=== PATIENT | male | born 1940 | race Caucasian/White ===

== ENCOUNTER 2020-04-21 20:29 | Emergency (ER) | payer MEDICARE ==
[~2020-04-21] VITALS: Ht 177.8 cm; Wt 93.9 kg
--- OUTSIDE RECORDS SUMMARY | ~2020-04-21 | XMS | Encounter Summary ---
Demographics + + + | Address | [address] | | | [place] [address] | + + + | Home Phone | | + + + | Preferred Language | Unknown | + + + | Marital Status | | + + + | Caodaism Affiliation | Unknown | + + + | Race | White | + + + | Ethnic Group | Not or | + + + Author + + + | Author | [facility] | | | and [place] | + + + | Organization | [facility] | | | and [place] | + + + | Address | Unknown | + + + | Phone | Unavailable | + + + Support +---------+ +---------+ + | Name | Relationship | Address | Phone | +---------+ +---------+ + | S Young | ECON | Unknown | | +---------+ +---------+ + Care Team Providers + +------+ + | Care Corn Breeder Name | Role | Phone | + +------+ + | Harley Caro MD | PCP | | + +------+ + Reason for Referral Diagnostic/Screening (Routine) + +--------+ + + + + | Status | Reason | Specialty | Diagnoses / | Referred By | Referred To | | | | | Procedures | Contact | Contact | + +--------+ + + + + | Authorizatio | | Radiology | Diagnoses | [place], | [facility] | | n not | | | Status post | Pal Velazquez, | [address] | | Required | | | aortic | MD [address] | | | | | valve | [address] | [place] | | | | | replacement | [place] | [address] | | | | | with | [place] | Phone: | | | | | bioprostheti | [address] | [phone] | | | | | c valve | Phone: | Fax: | | | | | Ascending | [phone] | [phone] | | | | | aorta | Fax: | | | | | | dilatation | [phone] | | | | | | (FORM[facility]LY [facility]) | | | | | | | Procedures | | | | | | | ECHO | | | | | | | Complete | | | + +--------+ + + + + Diagnostic/Screening (Routine) +--------+--------+ + + + + | Status | Reason | Specialty | Diagnoses / | Referred By | Referred To | | | | | Procedures | Contact | Contact | +--------+--------+ + + + + | Closed | | Radiology | Diagnoses | [place], | | | | | | History of | Pal Velazquez, | | | | | | left common | MD [address] | | | | | | carotid | [address] | | | | | | artery stent | [address] [address] | | | | | | placement | [place] | | | | | | Occlusion of | [id number] | | | | | | right | Phone: | | | | | | carotid | [phone] | | | | | | artery Hx | Fax: | | | | | | of stroke | [phone] | | | | | | without | | | | | | | residual | | | | | | | deficits | | | | | | | Procedures | | | | | | | VAS Carotid | | | | | | | Duplex | | | | | | | Bilateral | | | +--------+--------+ + + + + Reason for Visit + + + | Reason | Comments | + + + | Follow-up | 6 months | + + + Encounter Details +--------+---------+ + + + | Date | Type | Department | Care Team | Description | +--------+---------+ + + + | 07/15/ | Office | [facility] | Pal Vera, | Coronary artery | | 2019 | Visit | CARDIOLOGY [place] | MD [address]ina [address] | disease involving | | | | [address] | [place], | nikolski coronary | | | | [address] | [place] [address] | artery of nikolski | | | | [place], [place] | [phone] | heart without angina | | | | [address] | | pectoris (Primary | | | | [phone] | | Dx); S/P CABG x 1; | | | | | | History of left | | | | | | common carotid | | | | | | artery stent | | | | | | placement; Occlusion | | | | | | of right carotid | | | | | | artery; Hx of stroke | | | | | | without residual | | | | | | deficits; Status | | | | | | post aortic valve | | | | | | replacement with | | | | | | bioprosthetic valve; | | | | | | History of PSVT | | | | | | (paroxysmal | | | | | | supraventricular | | | | | | tachycardia); | | | | | | Chronic obstructive | | | | | | pulmonary disease, | | | | | | unspecified COPD | | | | | | type ([facility]); | | | | | | Ascending aorta | | | | | | dilatation ([facility]); | | | | | | Bilateral leg edema; | | | | | | Type 2 DM with CKD | | | | | | stage 3 and | | | | | | hypertension (HCC); | | | | | | Mixed hyperlipidemia | +--------+---------+ + + + Social History + +-------+ +--------+------+ | Tobacco Use | Types | Packs/Day | Years | Date | | | | | Used | | + +-------+ +--------+------+ | Former Smoker | | 1 | | | + +-------+ +--------+------+ + + + | Sex Assigned at | Date Recorded | | | | + + + | Not on file | | + + + documented as of this encounter Last Filed Vital Signs + + + + + | Vital Sign | Reading | Time Taken | Comments | + + + + + | Blood Pressure | 120/68 | 07/15/2019 2:21 PM | | | | | PST | | + + + + + | Pulse | 77 | 07/15/2019 2:21 PM | | | | | PST | | + + + + + | Temperature | - | - | | + + + + + | Respiratory Rate | - | - | | + + + + + | Oxygen Saturation | 92% | 07/15/2019 2:21 PM | | | | | PST | | + + + + + | Inhaled Oxygen | - | - | | | Concentration | | | | + + + + + | Weight | 91.8 kg (202 lb 4.8 | 07/15/2019 2:21 PM | | | | oz) | PST | | + + + + + | Height | 180.3 cm (5' 11") | 07/15/2019 2:21 PM | | | | | PST | | + + + + + | Body Mass Index | 28.22 | 07/15/2019 2:21 PM | | | | | PST | | + + + + + documented in this encounter Progress Notes Pal Vera MD - 07/15/2019 2:30 PM PSTFormatting of this note might be different fro m the original. Subjective: Patient ID: Navdeep Chávez is a 78 y.o. male. Patient's medications, allergies, past medical, surgical, social and family histories were obtained and reviewed as appropriate. HPI Mr. Chávez came to the office today for a cardiology follow-up visit for his CAD, chronic co mbined systolic/diastolic heart failure, dilated cardiomyopathy, PSVT, bioprosthetic aortic valve, and carotid artery disease. I have not seen him since my initial evaluation with him when he became a patient of our practice on 12/19/2016, but he has been following with MOMO Lance, regularly since then. Interim records were reviewed in detail. Every 2-3 months, he has a sharp left-sided anterior precordial pain, usually at rest, lasting onl y a few seconds. He has not had any for over 2 months, and it is unlikely that this atypica l chest pain is due to angina pectoris. He has had intermittent pedal edema following increased sodium intake, and is wearing compr ession stockings "once in a while", now wearing diabetic socks. He has BALDWIN, NYHA class 1-2, can drag michael of hay around for 5-10 minutes. He has no ortho pnea, PND, and no significant nocturia. He has been taking his Lasix at 6AM and then trying to go back to bed for another 2 hours, but has to get up every 45 min. I told him to wait until 8AM to take it. He is stressed, taking care of his at home, who has Alzheimer's dementia. He has an outpatient sleep evaluation with a wristwatch pulse ox, was told he needed O2, bu t felt they were quite rude and did not make another appointment. He declined another refer ral elsewhere, stating that he did not want to leave his overnight. For a For the ritika e reason, he declined a referral for a pulmonary evaluation in [place], even though PFTs in October, showed severe obstructive and restrictive lung disease. He has [facility] Overall, however, he appears to be relative ly stable, despite his multiple cardiovascular and pulmonary problems. His BP is well contr olled. No changes were made in his medications. I will see him back in 6 months, after an updated carotid ultrasound and echocardiographic evaluations ROS CONSTITUTIONAL: 10 lb weight increase in the last year (his stopped cooking, eats fast foods), denies recent fever, but had shaking chills, muscle twitching yesterday, denies nig ht sweats, c/o significant fatigue NEUROLOGIC: He has a history of a ? CVA (04/2012) - he denies this, but had dizziness, jeffery es any h/o a TIA, migraines, seizures. He had a single Syncopal event in 11/13 due to PSVT w ith hypotension. He has mild numbness of his hands, no paresthesias, has orthostatic dizzine ss, lightheadedness. He denies any memory problems. EYES: No amaurosis, diplopia, recent visual changes, has early stage cataracts, no macular degeneration or glaucoma, ? Left central retinal thrombosis, had intermittent complete left vision loss, resolved off aspirin, on Plavix ENT: bilateral hearing loss, L>R, no tinnitus, epistaxis, dysphagia ENDOCRINE: Type II Diabetes diagnosed 2017. He has a history of Thyroid Nodules, no other e ndocrine problems. No excessive hunger, thirst. PULMONARY/SLEEP: He developed Dyspnea on exertion in 2015, denies orthopnea, paroxysmal noc turnal dyspnea. He has a h/o COPD/Emphysema. He denies asthma, pneumonia. He had a left Pneu mothorax associated with syncope and fractures of the left first through eighth ribs 04/2013 , associated with PSVT and hypotension. His has told him of snoring, has mild daytime s omnolence. Sleep is not refreshing (due to nocturia). -- PFT (10/17/17 - [facility]): severe obstruction, severe diffusion defect, moderate restriction CARDIOVASCULAR: He had left mid-axillary chest pain yesterday for about 30 minutes, pressur e or discomfort. 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 No palpitations. He has a history of a heart murmur, had severe noted in 2011, underwent a bioprosthetic Magna AVR with his CABG 02/2013. He denies any h/o rheum atic fever. He has a history of Essential Hypertension, Hyperlipidemia. He has a h/o Carotid Stenosis, chronic JAYCEE occlusion, Left Carotid Stent. He has Pedal Edema, no claudication s ymptoms. -- Echo (10/30/18 - [facility]): Ef 55-60%, moderate eccentric LVH, mild RVE with normal systolic f unction, normal bioprosthetic AVR function, ascending aorta 4.0 cm -- Carotid U/S (11/08/18 - [facility]): known chronic occlusion of the JAYECE, patent stent in the LIC A -- Echo (10/26/17 - [facility]): EF 55-60%, moderate eccentric LVH, normal RV size, function, monik l bioprosthetic AVR function, ascending aorta 4.1 cm -- Echo (11/03/16 - [facility]): EF > 70%, grade 1 diastolic dysfunction, mild RVE, RVH, normal RV s ystolic function. Mild bioprosthetic , trace TR, mildly dilated ascending aorta, 4.2 cm -- Lipid Panel (01/01/18 - on atorvastatin 40 mg): TC-111, PL-30, HDL-31, TG-249 GASTROINTESTINAL: No recent abdominal pain, nausea, vomiting or diarrhea. He c/o frequent e xcessive abdominal gas. Denies PUD, melena, hematochezia, hepatitis. Diverticulosis noted on CT scan. RENAL/: BPH with Urinary Retention since 2012, possible bladder mass. Nocturia (5-6 times per night, previously was every 45 minutes), Stage III chronic kidney disease (GFR 52 and 2 013), with acute kidney injury 12/2016. No dysuria, hematuria, urinary urgency, hesitancy. N ephrolithiasis noted on CT scan, he passed on in the . HEMATOLOGY/ONCOLOGY: No h/o bleeding disorders, DVT, PE. He notes easy bruisability over th e last year, without excessive bleeding. No history of anemia, transfusions. No history of c ancer. MUSCULOSKELETAL: No myalgias, has Osteoarthritis of the spine noted on CT scan, arthralgias .of the hands. No history of rheumatologic or autoimmune diseases. CUTANEOUS: He has an intermittent back rash with pruritus, no other skin lesions. PSYCHIATRIC: No history of depression, but notes Anxiety, denies any other psychiatric prob lems. Past Medical History: Diagnosis Date Aortic stenosis, severe Arrhythmia 04/2013 PSVT, with WCT, syncope, s/p RF Ablation (AVNRT) - Christiano Valentine MD Carotid artery occlusion 04/05/2012 LICA Stent (10x40 Precise Nitinol stent - [facility]) CHF (congestive heart failure) (HCC) chronic combined systolic / diastolic heart failure Chronic kidney disease Stage III (GFR 52 and 2012), now with acute kidney injury COPD (chronic obstructive pulmonary disease) ([facility]) Emphysema Coronary artery disease Diabetes mellitus, type 2 ([facility]) Dilated cardiomyopathy ([facility]) 2012 EF 30% Heart murmur Hyperlipidemia Hypertension Joint pain Prostate enlargement S/P aortic valve replacement with bioprosthetic valve 02/20/2013 25 Maggie (s# [id number]), Cristino Green MD - [facility], [place] S/P CABG x 1 02/20/2013 SVG > RCA, Cristino Green MD - [facility], [place] Stroke ([facility]) 2011 he denies this, had dizziness prior to left carotid stent Syncope and collapse 04/2013 with SVT Type 2 DM with CKD stage 3 and hypertension ([facility]) 11/18/2018 Past Surgical History: Procedure Laterality Date AORTIC VALVE REPLACEMENT 02/20/2013 25 Maggie (s# [id number]), Cristino Green MD - [facility], [place] CARDIAC CATHERIZATION COLONOSCOPY CORONARY ARTERY BYPASS GRAFT 02/20/2013 SVG>RCA; Cristino Green MD - [facility], [place] HERNIA REPAIR Right 07/2009 [facility] OTHER SURGICAL HISTORY Left 04/05/2012 CAROTID STENT - 10x40 Precise Nitinol stent LICA OTHER SURGICAL HISTORY NASAL POLYP EXCISION PROSTATECTOMY 02/2017 TONSILLECTOMY AND ADENOIDECTOMY 1950 Family History Problem Relation Age of Onset Other (see comment) Mother Bowel Disease Stroke Mother 96 Alcohol abuse Father Social History Socioeconomic History Marital status: Unknown Spouse name: Not on file Number of children: Not on file Years of education: Not on file Highest education level: Not on file Occupational History Not on file Social Needs Financial resource strain: Not on file Food insecurity: Worry: Not on file Inability: Not on file Transportation needs: Medical: Not on file Non-medical: Not on file Tobacco Use Smoking status: Former Smoker Packs/day: 1.00 Substance and Sexual Activity Alcohol use: Not on file Drug use: Not on file Comment: Drug use: No Sexual activity: Not on file Lifestyle Physical activity: Days per week: Not on file Minutes per session: Not on file Stress: Not on file Relationships Social connections: Talks on phone: Not on file Gets together: Not on file Attends adventism service: Not on file Active member of club or organization: Not on file Attends meetings of clubs or organizations: Not on file Relationship status: Not on file Intimate partner violence: Fear of current or ex partner: Not on file Emotionally abused: Not on file Physically abused: Not on file Forced sexual activity: Not on file Other Topics Concern Not on file Social History Narrative Not on file Allergies Allergen Reactions Bactrim (Sulfamethoxazole-Trimethoprim) Other (See Comments) Kidney Failure Moxifloxacin Rash Rash Intolerance No active intolerances/contraindications Current Outpatient Medications Medication Sig Dispense Refill albuterol-ipratropium (COMBIVENT RESPIMAT) 100-20 mcg/puff inhaler Inhale 1 puff into t he lungs every 4 (four) hours as needed for Wheezing. ALPRAZolam (XANAX) 0.5 mg tablet Take 0.5 mg by mouth 3 times daily as needed for Anxie ty. atorvaSTATin (LIPITOR) 40 mg tablet Take 40 mg by mouth nightly. clopidogrel (PLAVIX) 75 mg tablet Take 75 mg by mouth daily. Cyanocobalamin (VITAMIN B12) [address] 1 tablet under the tongue daily. Fish Oil 1000 MG delayed release capsule Take 2 g by mouth daily. losartan (COZAAR) 25 mg tablet Take 25 mg by mouth Daily. metFORMIN (GLUCOPHAGE) 500 mg tablet Take 500 mg by mouth 2 (two) times daily with meal s. Multiple Vitamin (MULTI-VITAMIN DAILY PO) Take by mouth. Multiple Vitamins-Minerals (MENS MULTI VITAMIN & MINERAL PO) Take by mouth. potassium chloride (KLOR-CON) 10 MEQ ER tablet Take 20 mEq by mouth daily. Indications: Low Amount of Potassium in the Blood torsemide (DEMADEX) 20 mg tablet Take 40 mg by mouth daily. No current facility-administered medications for this visit. Objective: BP 120/68 | Pulse 77 | Ht 1.803 m (5' 11") | Wt 91.8 kg (202 lb 4.8 oz) | SpO2 92% | B CO 28.22 kg/m PHYSICAL EXAM GENERAL: Well developed, well nourished, in no distress. Appears approximately stated age. HEENT: Normocephalic, atraumatic. EYES: PERRL, sclerae anicteric, no xanthelsasmas MOUTH: Oral mucosae moist, dentition adequate, no lesions noted NECK: No JVD, lymphadenopathy, thyromegaly, bruits. Carotid pulses are 2+ bilaterally LUNGS: Diffusely coarse sounds bilaterally, with no rales, rhonchi or wheezing noted, respi rations unlabored HEART: Well-healed sternotomy incision. Nondisplaced PMI, regular rate and rhythm, S1, S2 n ormal. No murmurs, rubs or gallops noted. ABDOMEN: Soft, nontender, no organomegaly, masses or bruits. Bowel sounds are normal in all 4 quadrants. The abdominal aortic pulsation is not palpable. EXTREMITIES: No edema. Radial pulses 2+ bilaterally. Femoral pulses are 2+ bilaterally with out bruits. DP and PT pulses are 2+ bilaterally. SKIN: Warm and dry, capillary refill is normal, no lesions. NEUROLOGIC: Awake, alert and oriented x 3. No focal motor deficits. 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 Diagnoses and all orders for this visit: Coronary artery disease involving nikolski coronary artery of nikolski heart without angina pec toris - ECG 12 lead S/P CABG x 1 History of left common carotid artery stent placement - VAS Carotid Duplex Bilateral; Future Occlusion of right carotid artery - VAS Carotid Duplex Bilateral; Future Hx of stroke without residual deficits - VAS Carotid Duplex Bilateral; Future Status post aortic valve replacement with bioprosthetic valve - ECHO Complete; Future History of PSVT (paroxysmal supraventricular tachycardia) Chronic obstructive pulmonary disease, unspecified COPD type (HCC) Ascending aorta dilatation (HCC) - ECHO Complete; Future Bilateral leg edema Type 2 DM with CKD stage 3 and hypertension (HCC) Mixed hyperlipidemia Plan: follow up in 6 months, after the above tests documented in this en counter Plan of Treatment +--------+---------+ + + + | Date | Type | Specialty | Care Team | Description | +--------+---------+ + + + | 04/27/ | Office | Cardiology | Pal Vera, | | | 2019 | Visit | | [address] | | | | | | [place], | | | | | | [place] [address] | | | | | | [phone] | | | | | | | | +--------+---------+ + + + + + +--------+ + + | Name | Type | Priori | Associated Diagnoses | Order Schedule | | | | ty | | | + + +--------+ + + | VAS Carotid Duplex | Imaging | Routin | History of left | Expected: | | Bilateral | | e | common carotid | 01/13/2020, Expires: | | | | | artery stent | 07/15/2020 | | | | | placement Occlusion | | | | | | of right carotid | | | | | | artery Hx of stroke | | | | | | without residual | | | | | | deficits | | + + +--------+ + + | ECHO Complete | Echocardiog | Routin | Status post aortic | Expected: | | | franco | e | valve replacement | 01/13/2020, Expires: | | | | | with bioprosthetic | 07/15/2020 | | | | | valve Ascending | | | | | | aorta dilatation | | | | | | (HCC) | | + + +--------+ + + documented as of this encounter Procedures + +--------+ + + + | Procedure Name | Priori | Date/Time | Associated Diagnosis | Comments | | | ty | | | | + +--------+ + + + | ECG 12 LEAD | Routin | 07/15/2019 | Coronary artery | Results for this | | | e | 2:32 PM | disease involving | procedure are in the | | | | PST | nikolski coronary | results section. | | | | | artery of nikolski | | | | | | heart without angina | | | | | | pectoris | | + +--------+ + + + documented in this encounter Results ECG 12 lead (07/15/2019 2:32 PM PST) + + + + + + | Component | Value | Ref Range | Performed | Pathologist | | | | | At | Signature | + + + + + + | VENTRICULAR | 75 | BPM | [facility] | | | RATE EKG | | | | | + + + + + + | ATRIAL RATE | 75 | BPM | [facility] | | + + + + + + | P-R | 222 | ms | [facility] | | | INTERVAL | | | | | + + + + + + | QRS | 170 | ms | [facility] | | | DURATION | | | | | + + + + + + | Q-T | 428 | ms | [facility] | | | INTERVAL | | | | | + + + + + + | Q-T | 477 | ms | [facility] | | | INTERVAL | | | | | | (CORRECTED) | | | | | + + + + + + | P WAVE AXIS | 39 | degrees | [facility] | | + + + + + + | QRS AXIS | -93 | degrees | [facility] | | + + + + + + | T AXIS | 67 | degrees | [facility] | | + + + + + + | INTERPRETAT | Sinus rhythm with 1st | | [facility] | | | ION TEXT | degree A-V blockRight | | | | | | bundle branch | | | | | | blockAbnormal ECGWhen | | | | | | compared with ECG of | | | | | | 17-DEC-2017 | | | | | | 11:19,Previous ECG has | | | | | | undetermined rhythm, | | | | | | needs reviewPlease refer | | | | | | to Providers office | | | | | | visit note for Providers | | | | | | | | | | | | Interpretation.Confirmed | | | | | | by [facility] Brooks Read Only, | | | | | | ICA Magdi ([id number]), | | | | | | magazine editor Javon Villanueva | | | | | | ([id number]) on 07/16/2019 | | | | | | 7:52:30 AM | | | | + + + + + + + + | Specimen | + + | | + + + + + | Narrative | Performed At | + + + | | | + + + + +---------+ + + | Performing | Address | City/State/Zipcode | Phone Number | | Organization | | | | + +---------+ + + | [facility] | | | | + +---------+ + + documented in this encounter Visit Diagnoses + + | Diagnosis | + + | Coronary artery disease involving nikolski coronary artery of nikolski heart without | | angina pectoris - Primary | + + | S/P CABG x 1 Postsurgical aortocoronary bypass status | + + | History of left common carotid artery stent placement | + + | Occlusion of right carotid artery Occlusion and stenosis of carotid artery without | | mention of cerebral infarction | + + | Hx of stroke without residual deficits Transient ischemic attack (TIA), and cerebral | | infarction without residual deficits | + + | Status post aortic valve replacement with bioprosthetic valve Heart valve replaced by | | other means | + + | History of PSVT (paroxysmal supraventricular tachycardia) Personal history of other | | diseases of circulatory system | + + | Chronic obstructive pulmonary disease, unspecified COPD type (HCC) | + + | Ascending aorta dilatation (HCC) Thoracic aortic ectasia | + + | Bilateral leg edema Edema | + + | Type 2 DM with CKD stage 3 and hypertension (HCC) | + + | Mixed hyperlipidemia | + + documented in this encounter
--- OUTSIDE RECORDS SUMMARY | ~2020-04-21 | XMS | Clinical Summary ---
Demographics + + + | Address | [address] | | | [place] [address] | + + + | Home Phone | | + + + | Preferred Language | Unknown | + + + | Marital Status | | + + + | Mormonism Affiliation | PRO | + + + | Race | White | + + + | Ethnic Group | Not or | + + + Author + + + | Author | [facility] | + + + | Organization | [facility] | + + + | Address | Unknown | + + + | Phone | Unavailable | + + + Support + + + + + | Name | Relationship | Address | Phone | + + + + + | Allyssa Chávez | ECON | [address] | | | | | [place] | | | | | [phone] | | + + + + + Care Team Providers + +------+ + | Care Biological Science Technician Fish Name | Role | Phone | + +------+ + | No Pcp Per Patient | PCP | Unavailable | + +------+ + Source Comments ABDELRAHMAN is fully live on both [facility] and [facility] Allergies + + + + + + | Active Allergy | Reactions | Severity | Noted | Comments | | | | | Date | | + + + + + + | Moxifloxacin | | | 04/04/20 | [facility] | | | | | 12 | records | + + + + + + | Sulfamethoxazole-Tri | | | 04/04/20 | [facility] | | methoprim | | | 12 | records | + + + + + + Medications + + + +---------+------+------+-------+ | Medication | Sig | Dispensed | Refills | Star | End | Statu | | | | | | t | Date | s | | | | | | Date | | | + + + +---------+------+------+-------+ | aspirin 325 mg | Take 1 Tab by mouth | 30 Tab | 0 | 08/0 | | Activ | | Oral | once daily. | | | 6/20 | | e | | TabletIndications: | Indications: After | | | 12 | | | | After 30 days, | 30 days, should | | | | | | | should continue 81mg | continue 81mg ASA | | | | | | | ASA indefinitely | indefinitely | | | | | | + + + +---------+------+------+-------+ | clopidogrel 75 mg | Take 1 Tab by mouth | 30 Tab | 0 | 08/0 | | Activ | | Oral Tablet | once daily. | | | 6/20 | | e | | | | | | 12 | | | + + + +---------+------+------+-------+ | simvastatin 20 mg | Take 1 Tab by mouth | 30 Tab | 0 | 08/0 | | Activ | | Oral Tablet | once daily in the | | | 6/20 | | e | | | evening. | | | 12 | | | + + + +---------+------+------+-------+ | tamsulosin 0.4 mg | Take 1 Cap by mouth | 30 Cap | 0 | 08/0 | | Activ | | Oral Capsule, Ext | once daily at | | | 6/20 | | e | | Release 24 hr | bedtime. | | | 12 | | | + + + +---------+------+------+-------+ | aspirin chewable | Take 1 Tab by mouth | 100 Tab | 0 | 09/0 | | Activ | | 81 mg Oral Tablet, | once daily. | | | 6/20 | | e | | Chewable | | | | 12 | | | + + + +---------+------+------+-------+ Active Problems + + + | Problem | Noted Date | + + + | Carotid stenosis | 04/04/2012 | + + + | CAD (coronary artery disease) | 04/04/2012 | + + + | Hyperlipidemia | 04/04/2012 | + + + | BPH (benign prostatic hyperplasia) | 04/04/2012 | + + + | NSTEMI (non-ST elevated myocardial infarction) | 04/04/2012 | + + + | Aortic stenosis | 04/04/2012 | + + + Social History + + + +--------+ + | Tobacco Use | Types | Packs/Day | Years | Date | | | | | Used | | + + + +--------+ + | Former Smoker | Cigarettes | 0.5 | 20 | Quit: 04/04/2012 | + + + +--------+ + + +---+---+---+ | Smokeless Tobacco: | | | | | Never Used | | | | + +---+---+---+ + + | Tobacco Cessation: Counseling Given: Yes | | Comments: pt willing to try and quit | + + + + +---------+ + | Alcohol Use | Drinks/Week | oz/Week | Comments | + + +---------+ + | No | | | | + + +---------+ + + + + | Sex Assigned at | Date Recorded | | | | + + + | Not on file | | + + + + + + + | Job Start Date | Occupation | Industry | + + + + | Not on file | Not on file | Not on file | + + + + + + + + | Travel History | Travel Start | Travel End | + + + + + + | No recent travel history available. | + + Last Filed Vital Signs + + + + + | Vital Sign | Reading | Time Taken | Comments | + + + + + | Blood Pressure | 105/52 | 04/08/2012 11:54 AM | | | | | PDT | | + + + + + | Pulse | 55 | 04/08/2012 11:54 AM | | | | | PDT | | + + + + + | Temperature | 36.4 C (97.5 F) | 04/08/2012 11:54 AM | | | | | PDT | | + + + + + | Respiratory Rate | 18 | 04/08/2012 11:54 AM | | | | | PDT | | + + + + + | Oxygen Saturation | 97% | 04/08/2012 11:54 AM | | | | | PDT | | + + + + + | Inhaled Oxygen | - | - | | | Concentration | | | | + + + + + | Weight | 83 kg (182 lb 15.7 | 04/05/2012 6:00 AM | | | | oz) | PDT | | + + + + + | Height | 182.9 cm (6') | 04/06/2012 8:00 AM | | | | | PDT | | + + + + + | Body Mass Index | 24.82 | 04/05/2012 6:00 AM | | | | | PDT | | + + + + + Plan of Treatment + + + + + | Health Maintenance | Due Date | Last Done | Comments | + + + + + | Pneumococcal | | | | | vaccination (1 of 2 | 7 | | | | - PCV13) | | | | + + + + + | Influenza (Flu) | | | | | vaccination (#1) | 9 | | | + + + + + Results Not on filefrom Last 3 Months Insurance + +--------+ +--------+ + +--------+ | Payer | Benefi | Subscriber | Effect | Phone | Address | Type | | | t Plan | ID | maura | | | | | | / | | Dates | | | | | | Group | | | | | | + +--------+ +--------+ + +--------+ | [employer] | [employer] | xxxxxxxxx | Effect | [phone] | [address] | Agency | | ADMINISTRATION | [place] | | maura | [phone] | | | | ADMINI | | for | | [place], | | | | [place] | | all | | [place] [address] | | | | ON | | dates | | | | + +--------+ +--------+ + +--------+ | [address] [employer] | RAIL | [phone] | 09/03/19 | [phone] | [address] | [address] | | | [address] | | 07-Pre | [phone] | [phone] | re | | | MED[place] | | sent | | [place] | | | | RE | | | | [id number] | | + +--------+ +--------+ + +--------+ + +--------+ +--------+ + + | Guarantor Name | Accoun | Relation to | Date | Phone | Billing Address | | | t Type | Patient | of | | | | | | | | | | + +--------+ +--------+ + + | Navdeep Chávez | Person | Self | [birth year] | [phone] | | | al/Fam | | 1941 | [phone] | [place] [address] | | | cinthya | | | 1 (Home) | | + +--------+ +--------+ + + | Navdeep Chávez | [place] | Self | [birth year] | | [address] | | | [place] | | 1941 | [phone] | [place] [address] | | | red | | | 1 (Home) | | + +--------+ +--------+ + + Advance Directives + + + + + | Code Status | Date | Date | Comments | | | Activated | Inactivated | | + + + + + | Full Code | 04/05/2012 | 04/08/2012 | | | | 12:07 PM | 9:01 PM | | + + + + + + + + +---+ | | | | | + + + +---+ | Full Code | 04/04/2012 | 04/05/2012 | | | | 6:58 PM | 12:07 PM | | + + + +---+ + + + +---+ | | | | | + + + +---+ | Full Code | 04/04/2012 | 04/04/2012 | | | | 6:50 PM | 6:58 PM | | + + + +---+"
--- OUTSIDE RECORDS SUMMARY | ~2020-04-21 | XMS | Encounter Summary ---
Demographics + + + | Address | [address] | | | [place] [address] | + + + | Home Phone | | + + + | Preferred Language | Unknown | + + + | Marital Status | | + + + | Sikhism Affiliation | PRO | + + + | Race | White | + + + | Ethnic Group | Not or | + + + Author + + + | Author | [facility] | + + + | Organization | [facility] | + + + | Address | Unknown | + + + | Phone | Unavailable | + + + Support + + + + + | Name | Relationship | Address | Phone | + + + + + | Allyssa Chávez | ECON | [address] | | | | | [place] | | | | | [address] | | + + + + + Care Team Providers + +------+ + | Care Boiler Room Operator Name | Role | Phone | + +------+ + | No Pcp Per Patient | PCP | Unavailable | + +------+ + Reason for Visit +--------+ + | Reason | Comments | +--------+ + | Stroke | | +--------+ + AUTH/CERT (Routine) +--------+--------+ + + + + | Status | Reason | Specialty | Diagnoses / | Referred By | Referred To | | | | | Procedures | Contact | Contact | +--------+--------+ + + + + | Closed | | | | | | +--------+--------+ + + + + Encounter Details +--------+ + + + + | Date | Type | Department | Care Team | Description | +--------+ + + + + | 04/04/ | Hospital | [facility] [address] | Byron Trimble MD | | | 2011 - | Encounter | [address] | [address] | | | | | [id number] [facility] | [place], [place] | | | 04/08/ | | [place] [phone] | | | 2011 | | [place] [facility] | [phone] | | | | | [phone] | | | | | | | Mayco Cantu MD | | | | | | [address] | | | | | | [place], [place] | | | | | | [address] | | | | | | [phone] | | | | | | | | +--------+ + + + + Social History + + [...] recent travel history available. | + + documented as of this encounter [...] + + + documented in this encounter Discharge Summaries Kelton Sepulveda MD - 04/08/2012 1:59 PM PDTINPATIENT PROVIDER DISCHARGE AND INTERDISCIPLIN LONI INSTRUCTIONS FOR PATIENTS DISCHARGING TO CARE FACILITIES Admit Date: 04/04/2012 Discharge Date: 04/08/2012 Service: Neurology Stroke Principal Final Diagnosis: L ICA stenosis s/p stent Additional Diagnoses: R ICA occlusion Severe aortic stenosis NSTEMI Reason for Admission, Significant Findings, Treatment, and Complications Brief Hospital Course: 71 y.o. male with a PMH significant for severe Ao stenosis, 3vCAD c/b NSTEMI, amaurosis fug ax, new finding of 90% L ICA disease, and R 100% occlusion of the carotid, [facility] complaining of light headedness and palpitations, he was soon found to have a S SONIA. Follow-up ECHO showed severe Ao stenosis, he had a cardiac cath which showed CAD but n o intervention was done. His stenosis was found after a bruit was noticed and follow up abebe tids were done, he was in [place] a day early as he was heading here for further evaluation of the stenosis. This is how he ended up in the ED here. Following the cath it was determin ed that he is a candidate for revascularization. Although due to the severe stenosis he was sent to [facility] for further evaluation and management of the ICA stenosis. On HD#1, the patient was loaded with clopidogrel and cerebral angiogram was performed which confirmed L ICA 95% stenosis and R ICA occlusion at bifurcation. Overnight, a stent was pl aced in the L ICA, and the patient required pressors post-procedurally for bradycardia and a symptomatic hypotension. The patient continued to remain in the hospital as blood pressure and bradycardia improved (HR 30s-->50-60s). Throughout the hospital stay, the patient was adamant that he needed to return home to take care of his demented 90-year old parents and his who suffers from advanced COPD. He did not want to be transferred to [facility] to undergo urgent repair of his aort ic stenosis. On day of discharge, Chidi Hodges (CT surgery coordinator) was informed of jimi higgins's case and arranged for patient to be discharged from [facility] with explicit instructions to go to [facility] and [facility] as part of standard pre-op evaluation for angel nning surgery of Ao Valve repair. Active medical problems and treatment: The patient's problem list and plan are delineated below: #L ICA stenosis, s/p stent on 04/05/2012, now stable. From neurological standpoint, the snow ent should continue on aspirin and clopidogrel for one month and then remain on aspirin inde finitely - ASA 325/clopidogrel x 1 month, followed by ASA 81mg qdaily indefinitely - follow up in stroke clinic in 4-6 weeks #Aortic stenosis, severe, likely 2/2 calcific changes (as patient is elderly, and has risk factors of hypercholesteremia). 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 During this admission, several attempts were made to expla in to the patient the urgency of having valvular repair surgery, and on day of discharge he agreed to have surgery not immediately, but "earlier than planned." - upon discharge, immediately go to [facility] for dental eval and pre-op eval - plan for valve repair by CT surgery within 1 week of discharge - continue clopogrel/ASA x 1 month, followed by lifelong aspirin #Anemia, normocytic, 2/2 unclear etiology, but differential includes multifactorial etiolog ies such as iron and B12/folate deficiency vs anemia of chronic disease. Patient was asympt ompatic in setting of severe AoS. This should be addressed by PCP at [facility] after aortic valve repair performed. #CAD, controlled, with goal LDL 73. Continue simvastatin 20mg qhs #BPH, stable during this admission, continued tamsulosin. Discharge Medications: See After Visit Summary (AVS) Diet: Cardiac diet Activity Orders: No driving whatsoever Does the patient need a physical therapy or occupational therapy consult? PT evaluate and treatno OT evaluate and treatno Special Instructions: (Treatment, Equipment, Supplies, Dressings, LAB follow-up) Oxygen? No Weigh daily: no The patient should not drive himself home. Follow Up Appointments: PCP: [facility] patient Other: Stroke clinic in 4-6 weeks Follow Up Tests: (Tests at [facility] must be entered into Epic) Follow up chem in 1 week Condition On Discharge: Stable, but needs urgent valvular repair Vital Signs at discharge as appropriate: BP: 105/52 mmHg (04/08/12 1154) Pulse: 55 (04/08/12 1154) Resp: 18 (04/08/12 1154) Weight: 83 kg (182 lb 15.7 oz) (04/05/12 0600) Discharge Patient To: [facility], then home Does patient have a planned readmission: Yes- Date TBD (Chidi Hodges) at [facility] Patient plans after discharge? Go to [facility] for pre-op eval, then valve surgery Discharge Summary Completed?: Yes- Date 04/08/2012 Code Status? POLST completed? No Discharging Provider: KELTON SEPULVEDA MD Date Completed: 04/08/12 Time Completed: 1455 Discharging Attending: Byron Trimble MD Physician Signature: Kelton Sepulveda Neurology REsident Pager [phone] documented in this enco unter Discharge Instructions Instructions Jasmyne Gates - 04/08/2012Formatting of this note might be different fro m the original. Carotid Endarterectomy: Before Your Surgery What is a carotid endarterectomy? A carotid endarterectomy (say "kuh-RAW-tid ob-tbd-agr-REK-h-kenneth") is surgery to remove fa tty buildup (plaque) from one of the carotid arteries. There are two carotid arteries one on each side of the neck that supply blood to the brain. When plaque builds up in either a rtery, it can make it hard for blood to flow to the brain. This surgery may lower your risk of having a stroke. The doctor will make a cut (incision) in your neck. Then the doctor will make an incision i n the carotid artery and take out the plaque. After the plaque is removed, the doctor will c lose the incision in the artery with stitches. Or the doctor may sew a man-made patch or a p iece of blood vessel from another part of your body over the incision in your carotid artery . This will make the artery wider and help prevent it from becoming narrow again. Then the d octor will close the incision in your skin with stitches. The skin incision will leave a sca r that will fade with time. You will probably go home the day after surgery. You may be able to go back to work or your usual activities in 1 to 2 weeks. Follow-up care is a pittman part of your treatment and safety. Be sure to make and go to all ap pointments, and call your doctor if you are having problems. It's also a good idea to know y our test results and keep a list of the medicines you take. What happens before surgery? Having surgery can be stressful. This information will help you understand what you can exp ect and how to safely prepare for surgery. Preparing for surgery Bring a list of questions to ask your doctors. It is important that you understand exact ly what surgery is planned, the risks, benefits, and other options before your surgery. Tell your doctors ALL the medicines, vitamins, supplements, and herbal remedies you take . Some of these can increase the risk of bleeding or interact with anesthesia. Your doctor w ill tell you which medicines to take or stop before your surgery. If you take blood thinners, such as warfarin (Coumadin), clopidogrel (Plavix), or aspiri n, be sure to talk to your doctor. He or she will tell you if you should stop taking these m edicines before your surgery. Make sure that you understand exactly what your doctor wants y ou to do. You may need to stop taking certain medicines a week or more before surgery, so talk to your doctor as soon as you can. Before your surgery, you will speak with an anesthesia provider to discuss your anesthet ic options, including the risks, benefits, and alternatives to each. This may be on the phon e or in person. Taking care of yourself before surgery Build healthy habits into your life. Changes are best made several weeks before surgery, since your body may react to sudden changes in your habits. Stay as active as you can. Eat a healthy diet. Cut back or quit alcohol and tobacco. If you have an advance directive which may include a living will and a durable power o f claim attorney for health care let your doctor know. If you do not have one, you may want to p repare one so your doctor and loved ones know your health care wishes. Doctors recommend charlene t everyone prepare these papers before surgery, regardless of the type of surgery or conditi on. What happens on the day of surgery? Follow the instructions exactly about when to stop eating and drinking, or your surgery may be canceled. If your doctor has instructed you to take your medicines on the day of surg sudeep, please do so using only a sip of water. Take a bath or shower before you come in for your surgery. Do not apply lotions, perfume s, deodorants, or nail amharic. Do NOT shave the surgical site yourself. Remove all jewelry, piercings, and contact lenses. Leave your valuables at home. At the hospital or surgery center Bring a picture ID. Before surgery you will be asked to repeat your full name, what surgery you are having, and what part of your body is being operated on. The area for surgery may be marked. A small tube (IV) will be placed in a vein, to give you fluids and medicine to help you relax. Because of the combination of medicines given to keep you comfortable, you may not re member much about the operating room. You will be kept comfortable and safe by your anesthesia provider. You will be asleep du ring the surgery. The surgery will take about 1 to 2 hours. As you wake up in the recovery room, the nurse will check to be sure you are stable and comfortable. It is important for you to tell your doctor and nurse how you feel and ask ques tions about any concerns you may have. Going home Be sure you have someone to drive you home. For your safety, you should not drive until you are no longer taking pain medicines and you can move and react easily. Arrange for extra help at home after surgery, especially if you live alone or provide ca re for another person. You will be given more specific instructions about recovering from your surgery, includi ng activity and when you may return to work. When should you call your doctor? You have questions or concerns. You don t understand how to prepare for your surgery. You become ill before the surgery (such as fever, flu, or a cold). You need to reschedule or have changed your mind about having the surgery. Where can you learn more? To learn more about "Carotid Endarterectomy: Before Your Surgery", log into your Extreme Re[employer] ac count at [email or web address] You can enter [id number] in the [employer]" search vik x. Not on Extreme Reach? Review the Ext[employer] section of your After Visit Summary for directions on ho w to sign up. [id number] [employer]. Care instructions adapted under license by [facility] & [facility]. This care instruction is for use with your licensed healthcar e professional. If you have questions about a medical condition or this instruction, always ask your healthcare professional. [employer] disclaims any warranty or liabili ty for your use of this information. Content Version: 9.3.75726; Last Revised: October 17, 2010 Carotid Stenosis: After Your Visit Your Care Instructions Carotid stenosis is narrowing of one or both of the carotid arteries. These arteries take b lood from the heart to the brain. One carotid artery is on each side of the neck. A substanc e called plaque builds up inside an artery, making it too narrow. Plaque comes from damage t o the artery over time. This damage may be caused by high blood pressure, high cholesterol, diabetes, or smoking. Sometimes plaque can break loose from the carotid artery and move to t he brain, causing a stroke or transient ischemic attack (TIA). Treatment includes medicines to reduce the risk of blood clots, such as aspirin. Sometimes carotid surgery is needed to take out the plaque. Follow-up care is a pittman part of your treatment and safety. Be sure to make and go to all ap pointments, and call your doctor if you are having problems. It s also a good idea to know your test results and keep a list of the medicines you take. How can you care for yourself at home? Take your medicines exactly as prescribed. Call your doctor if you think you are having a problem with your medicine. You may take medicine to lower your blood pressure, to lower y our cholesterol, or to prevent blood clots. Do not smoke. People who smoke have a higher chance of stroke than those who quit. If yo u need help quitting, talk to your doctor about stop-smoking programs and medicines. These c an increase your chances of quitting for good. Eat a healthy diet that is low in cholesterol, saturated fat, and salt. Eat lots of fres h fruits and vegetables and foods high in fiber. Talk to your doctor about starting an exercise program. Regular exercise lowers your vinod nce of stroke. Limit alcohol to 2 drinks a day for men and 1 drink a day for women. Too much alcohol ca n cause health problems. Work with your doctor to control high blood pressure, high cholesterol, diabetes, and ot her conditions that increase your chance of a stroke. A healthy diet, exercise, weight loss (if needed), and medicines can help. When should you call for help? Call 911 anytime you think you may need emergency care. For example, call if: You passed out (lost consciousness). You have signs of a stroke. These may include: Sudden numbness, paralysis, or weakness in your face, arm, or leg, especially on only on e side of your body. New problems with walking or balance. Sudden vision changes. Drooling or slurred speech. New problems speaking or understanding simple statements, or feeling confused. A sudden, severe headache that is different from past headaches. Call your doctor now or seek immediate medical care if: You are dizzy or lightheaded, or you feel like you may faint. Watch closely for changes in your health, and be sure to contact your doctor if you have an y problems. Where can you learn more? To learn more about "Carotid Stenosis: After Your Visit", log into your Extreme Reach account at [email or web address] You can enter [id number] in the [employer]" search box. Not on Extreme Reach? Review the mobifriendshart section of your After Visit Summary for directions on anne bueno to sign up. [phone] [employer]. Care instructions adapted under license by [facility] & [facility] [place] [facility]. This care instruction is for use with your licensed healthcar e professional. If you have questions about a medical condition or this instruction, always ask your healthcare professional. [employer] disclaims any warranty or liabili ty for your use of this information. Content Version: 9.3.49802; Last Revised: July 03, 2011 Chest Pain (Angina): After Your Visit Your Care Instructions You have had a type of chest pain called angina. You did not have a heart attack. You had a ngina because, for a short time, your heart was not getting enough blood. This is caused by coronary artery disease (CAD), which occurs when the major blood vessels to the heart become narrow or blocked. CAD increases your risk for a heart attack. Now is a good time to take steps to reduce your risk of heart attack. These instructions wi ll help get you started. Follow-up care is a pittman part of your treatment and safety. Be sure to make and go to all ap pointments, and call your doctor if you are having problems. It s also a good idea to know your test results and keep a list of the medicines you take. How can you care for yourself at home? Lifestyle changes Do not smoke. People with heart disease who smoke have a much greater chance of dying fr om a heart attack than those who do not smoke. If you need help quitting, talk to your docto r about stop-smoking programs and medicines. These can increase your chances of quitting for good. Eat a heart-healthy diet that is low in cholesterol, saturated fat, and salt, and is hig h in fiber. Eat at least 2 servings of fish a week. You may get more details about how to ea t healthy, but these tips can help you get started. Talk to your doctor about when you can have sex again. Do not take Viagra, Levitra, or C ialis if you are taking nitroglycerin. Medicines If your doctor has given you nitroglycerin, keep it with you at all times. If you have c hest pain, sit down and rest, and take the first dose of nitroglycerin as directed. If chest pain gets worse or is not getting better within 5 minutes, call 911 immediately. After call ing 911, continue to stay on the phone with the emergency gas engine operator generators. He or she will give you further instructions. If your doctor advises it, take 1 low-dose aspirin a day to prevent heart attack. Talk t o your doctor if you have other health problems that might keep you from taking aspirin. Take your medicines exactly as prescribed. Call your doctor if you think you are having a problem with your medicine. You will get more details on the specific medicines your docto r prescribes. Activity If your doctor recommends it, get more exercise. Walking is a good choice. Bit by bit, i ncrease the amount you walk every day. Try for at least 30 minutes on most days of the week. You also may want to swim, bike, or do other activities. If an activity causes angina, slow down, and talk to your doctor before you exercise aga in. Ease into activities in the morning. After meals, rest, or do only light exercise. If your doctor has not set you up with a cardiac rehabilitation program, talk to him or her about whether that is right for you. Cardiac rehab includes supervised exercise, help wi th diet and lifestyle changes, and emotional support. It may reduce your risk of future hear t problems. When should you call for help? Call 911 anytime you think you may need emergency care. For example, call if: You passed out (lost consciousness). You have been diagnosed with angina, and you have chest pain that does not go away with rest or is not getting better within 5 minutes after you take a dose of nitroglycerin. You have chest pain or pressure. This may occur with: Sweating. Shortness of breath. Nausea or vomiting. Pain that spreads from the chest to the neck, jaw, or one or both shoulders or arms. Dizziness or lightheadedness. A fast or uneven pulse. After calling 911, chew 1 adult-strength aspirin. Wait for an ambulance. Do not try to driv e yourself. Call your doctor now or seek immediate medical care if: You are having chest pain more often than usual, even if it goes away when you rest or t [place] nitroglycerin. You feel dizzy or lightheaded, or you feel like you may faint. Watch closely for changes in your health, and be sure to contact your doctor if: You do not get better as expected. Where can you learn more? To learn more about "Chest Pain (Angina): After Your Visit", log into your Extreme Reach account at [email or web address] You can enter [id number] in the [employer]" search box. Not on Extreme Reach? Review the [employer] Network[employer] section of your After Visit Summary for directions on anne bueno to sign up. [id number] [employer]. Care instructions adapted under license by [facility] & [facility]. This care instruction is for use with your licensed healthcar e professional. If you have questions about a medical condition or this instruction, always ask your healthcare professional. [employer] disclaims any warranty or liabili ty for your use of this information. Content Version: 9.3.37117; Last Revised: June 15, 2010 Chest Pain (Angina): After Your Visit Your Care Instructions You have had a type of chest pain called angina. You did not have a heart attack. You had a ngina because, for a short time, your heart was not getting enough blood. This is caused by coronary artery disease (CAD), which occurs when the major blood vessels to the heart become narrow or blocked. CAD increases your risk for a heart attack. Now is a good time to take steps to reduce your risk of heart attack. These instructions wi ll help get you started. Follow-up care is a pittman part of your treatment and safety. Be sure to make and go to all ap pointments, and call your doctor if you are having problems. It s also a good idea to know your test results and keep a list of the medicines you take. How can you care for yourself at home? Lifestyle changes Do not smoke. People with heart disease who smoke have a much greater chance of dying fr om a heart attack than those who do not smoke. If you need help quitting, talk to your docto r about stop-smoking programs and medicines. These can increase your chances of quitting for good. Eat a heart-healthy diet that is low in cholesterol, saturated fat, and salt, and is hig h in fiber. Eat at least 2 servings of fish a week. You may get more details about how to ea t healthy, but these tips can help you get started. Talk to your doctor about when you can have sex again. Do not take Viagra, Levitra, or C ialis if you are taking nitroglycerin. Medicines If your doctor has given you nitroglycerin, keep it with you at all times. If you have c hest pain, sit down and rest, and take the first dose of nitroglycerin as directed. If chest pain gets worse or is not getting better within 5 minutes, call 911 immediately. After call ing 911, continue to stay on the phone with the emergency gas engine operator generators. He or she will give you further instructions. If your doctor advises it, take 1 low-dose aspirin a day to prevent heart attack. Talk t o your doctor if you have other health problems that might keep you from taking aspirin. Take your medicines exactly as prescribed. Call your doctor if you think you are having a problem with your medicine. You will get more details on the specific medicines your docto r prescribes. Activity If your doctor recommends it, get more exercise. Walking is a good choice. Bit by bit, i ncrease the amount you walk every day. Try for at least 30 minutes on most days of the week. You also may want to swim, bike, or do other activities. If an activity causes angina, slow down, and talk to your doctor before you exercise aga in. Ease into activities in the morning. After meals, rest, or do only light exercise. If your doctor has not set you up with a cardiac rehabilitation program, talk to him or her about whether that is right for you. Cardiac rehab includes supervised exercise, help wi th diet and lifestyle changes, and emotional support. It may reduce your risk of future hear t problems. When should you call for help? Call 911 anytime you think you may need emergency care. For example, call if: You passed out (lost consciousness). You have been diagnosed with angina, and you have chest pain that does not go away with rest or is not getting better within 5 minutes after you take a dose of nitroglycerin. You have chest pain or pressure. This may occur with: Sweating. Shortness of breath. Nausea or vomiting. Pain that spreads from the chest to the neck, jaw, or one or both shoulders or arms. Dizziness or lightheadedness. A fast or uneven pulse. After calling 911, chew 1 adult-strength aspirin. Wait for an ambulance. Do not try to driv e yourself. Call your doctor now or seek immediate medical care if: You are having chest pain more often than usual, even if it goes away when you rest or t [place] nitroglycerin. You feel dizzy or lightheaded, or you feel like you may faint. Watch closely for changes in your health, and be sure to contact your doctor if: You do not get better as expected. Where can you learn more? To learn more about "Chest Pain (Angina): After Your Visit", log into your MyChart account at [email or web address] You can enter H129 in the [facility]" search box. Not on [employer]? Review the mobifriendshart section of your After Visit Summary for directions on anne bueno to sign up. [id number] [employer]. Care instructions adapted under license by [facility] & [facility]. This care instruction is for use with your licensed healthcar e professional. If you have questions about a medical condition or this instruction, always ask your healthcare professional. [employer] disclaims any warranty or liabili ty for your use of this information. Content Version: 9.3.78162; Last Revised: June 15, 2010 documented in this encounter Medications at Time of Discharge + + + +---------+ + + | Medication | Sig | Dispensed | Refills | Start | End Date | | | | | | Date | | + + + +---------+ + + | aspirin 325 mg | Take 1 Tab by mouth | 30 Tab | 0 | 04/08/20 | | | Oral | once daily. | | | 12 | | | TabletIndications: | Indications: After | | | | | | After 30 days, | 30 days, should | | | | | | should continue 81mg | continue 81mg ASA | | | | | | ASA indefinitely | indefinitely | | | | | + + + +---------+ + + | aspirin chewable | Take 1 Tab by mouth | 100 Tab | 0 | 05/09/20 | | | 81 mg Oral Tablet, | once daily. | | | 12 | | | Chewable | | | | | | + + + +---------+ + + | clopidogrel 75 mg | Take 1 Tab by mouth | 30 Tab | 0 | 04/08/20 | | | Oral Tablet | once daily. | | | 12 | | + + + +---------+ + + | simvastatin 20 mg | Take 1 Tab by mouth | 30 Tab | 0 | 04/08/20 | | | Oral Tablet | once daily in the | | | 12 | | | | evening. | | | | | + + + +---------+ + + | tamsulosin 0.4 mg | Take 1 Cap by mouth | 30 Cap | 0 | 04/08/20 | | | Oral Capsule, Ext | once daily at | | | 12 | | | Release 24 hr | bedtime. | | | | | + + + +---------+ + + documented as of this encounter Progress Notes Byron Trimble MD - 04/08/2012 2:49 PM PDTI agree with the history, exam and care plan as per the director housekeeping and have examined the patient myself. On exam this morning, Mr. Chávez was alert and fluent. He followed all commands. EOMi, VFF . He had no drift and F-N was normal bilaterally. Impression Generally doing well post left ICA stent with no recurrent neurological symptoms. However, he did drop his pressures this morning and felt a little lightheaded. He was treated with fluids. Once his vitals and groin puncture site are stable and the patient can ambulated, charly horne can be discharged home. We have discussed the fact that he needs to take clopidogrel and aspirin for 30 days and aspirin alone thereafter. We will schedule a follow-up for him at [facility] stroke clinic in about 1 month (will also be seeing cardiology for severe ). [facility] DEPARTMENT: [facility] - [id number] Place of Service: [id number] - IP CSN: [id number] Suggested Modifer: GC Resident Present Suggested Level of Service: 74546 - Subsequent, Exp Prob Foc/Mod Complex 25 min Suggested Diagnosis: 433.1_0_ - Stenosis, Carotid Artery Nallely Angel MD - 0 04/07/2012 3:15 PM MARY ELLENU ATTENDING Author: Nallely Watters MD Briefly, this is a 71 y/o man with a PMH of HTN and current smoking who had a planned admis pham for JAYCEE stenosis stenting this month. Four days ago, he developed chest pain and repor aramis [facility] where [facility] was found to have a NSTEMI. Cath showed 3 vessel disease needing CABG . In order to undergo this needed surgery, doctors recommended patient have his JAYCEE stenosi s addressed first. [facility]. As it turns out, JAYCEE occluded on angio and LICA with critical stenosis. Stent placed to LICA 04/04, BP very low/hea rt rate slow. Braulio gtt started. Asymptomatic from hypotension. Hypotension continued--pressor had to be changed to norepi due to bradycardia. Troponins negative. 24h events: Pressors weaned off. Patient doing well this AM. PE: Neuro: A&O x3. Language clear and fluent. PERRL. EOMI. Visual benítez full. Face symmetric. Hearing intact. TUP midline. Strength symmetric, 5/5. No sensory loss. No cerebellar signs. Pulm: CTAB CV: RRR A/P: 71 yo s/p LICA stenting, now with hypotension and bradycardia. At risk for deteriorati on due to ischemic stroke, cerebral edema, seizure, hypotension, VT, cardiac arrest 1. Neuro -Cont. ASA/Plavix -PT/OT -Mobilize -Frequent Neurologic checks -Pain control with tylenol 2. CV-CAD, -MAP>55 mmHg, SBP< 140 mmHg -Off pressors -Cont. Simvastatin for HLP 3. Pulm Ecourage IS 4. GI//Endo -Advance diet as tolerated -Jackman catheter to removed -Continue sliding scale insulin with goal BG<200 5. Heme -Monitor H&H post-op 6. Renal -Replete electrolyes as needed 7. ID -Afebrile, no Abx -Central line--cont. 8. Proph: Stress ulcer prophylaxis with famotidine. DVT proph with SCDs, heparin SQ. Nallely Watters M.D. I spent 40 minutes in direct care of this patient with over 50% spent at the patient s be side, reviewing data, discussing the patient s care with other medical staff, charting, an d discussion with treatment decision maker. [facility] DEPARTMENT: [id number] CRITICAL CARE Place of Service: Inpatient Date of Service: 04/07/2012 CSN: [id number] Suggested Level of Care: 31172 - SUBSEQUENT HOSPITAL CARE,LEVEL I Mayco Zuniga MD - 8:49 AM PDT STROKE I saw and evaluated patient. I reviewed note HO and concur. 71 yo man with hx HTN, known occluded JAYCEE and >90% stenosis of LICA, amaurosis fugax, DM, tobacco use, HLD who presented to [facility] 04/01 for evaluation of the LICA stenosis, but develop an NSTEMI. [facility]TE showed severe and mitral regurgita tion. He was transferred to [facility] for LICA stenting (which occurred 04/05) prior to aortic valv e replacement. BP 78/44 | Pulse 54 | Temp 36.9 C (98.4 F) | RR 18 | Ht 1.829 m (6') | Wt 83 kg (182 lb 15.7 oz) | SpO2 92% | BMI 24.82 kg/(m^2) Exam non focal NIH = 0 A) S/P LCAS- for symptomatic stenosis. Doing well. [place] floor Home in AM F/U stroke [facility] Stroke education provided to patient including stroke warning signs, need to dial 911, risk factor reduction, stroke medications and F/U reviewed. [facility] DEPARTMENT: [facility] - [id number] Place of Service: - CSN: [id number] Suggested Modifer: GC Resident Present Suggested Level of Service: 32893 - Subsequent, Exp Prob Foc/Mod Complex 25 min Suggested Diagnosis: 433.11 - Stenosis, Carotid Artery Radha Singer M D - 04/07/2012 8:06 AM PDT Stroke Service: Inpatient Progress Note Interval Hx: Navdeep Chávez is a 71 yo man with hx HTN, known occluded JAYCEE and >90% stenosis of LICA, amaurosis fugax, DM, tobacco use, HLD who presented to [facility] 04/01 for evalua tion of the LICA stenosis, but develop an NSTEMI. [facility] where [facility]TE showe d severe and mitral regurgitation. He was transferred to [facility] for LICA stenting (which oc curred 04/05) prior to aortic valve replacement. S: - norepi turned off at 0300. BP stable at 123/53 - pt wants to go home for 6 weeks prior to getting aortic valve. Cardiology has been workin g with him for a long time to try to get him to replace the valve, but he keeps putting it o ff. - plans to come down to [place] to help get pt back to [place] - discussed with pt that he CANNOT drive himself home given risk to himself and other motor ists (specifically discussed risk of syncope causing - both his and other motorists). He agrees not to drive himself and is okay to wait until tomorrow or Sunday when his elijah ets here. - denies vision changes, weakness, n/t O: BP 78/44 | Pulse 54 | Temp 36.9 C (98.4 F) | RR 18 | Ht 1.829 m (6') | Wt 83 kg (182 lb 15.7 oz) | SpO2 92% | BMI 24.82 kg/(m^2) Systolic (24hrs), Av mmHg, Min:78 mmHg, Max:117 mmHg Diastolic (24hrs), Av mmHg, Min:44 mmHg, Max:61 mmHg Pulse Av.5 Min: 52 Max: 73 Temp Av.9 C (98.5 F) Min: 36.7 C (98 F) Max: 37.2 C (99 F) Resp Av.7 Min: 12 Max: 20 SpO2 Av.4 % Min: 90 % Max: 97 % General: in NAD CV: Rrr Neurologic: Awake and alert, conversational, briskly follows commands, no aphasia, normal double simult aneous stimulation PERRL (3mm), blinks to threat bilaterally, EOMI, facial sensation intact and symmetric, fac e symmetric at rest and on grimace, hearing intact to voice, no dysarthria, tongue midline No drift in UEs or LEs Sensation intact and symmetric No dysmetria NIHSS 0 Studies: Lab Results Component Value Date CHOL 122 04/04/2012 LDL 73 04/04/2012 HDL 34 04/04/2012 TRI 77 04/04/2012 Assessment: Navdeep Chávez is a 71 yo man with hx HTN, known occluded JAYCEE and >90% stenosis of LICA, amaurosis fugax, DM, tobacco use, HLD who was admitted to the [facility] 04/01 for an NSTEMI, found to have severe aortic stenosis, but needed LICA stent before valve replacem ent can proceed. He is now s/p stent with stable blood pressures off pressors. Given that pr essors were turned off at 0300 this morning and pt is high risk for syncope event with his a ortic stenosis should he have any hypotension, will transfer to the floor today to make sure he is stable (and able to get up and walk) before discharging home. Plan: - transfer to [facility] -continue plavix 75mg daily x 1 month -continue asa 325mg x 1 month, then ASA 81mg lifelong -cont simvastatin 20mg -goal SBP >100, <140 Stroke Workup: Vascular imaging: carotid US with occluded right ICA; 90% stenosis of LICA (angio 95% steno sis, now 0% after stenting) LDL: 62, goal <70, simvastatin 20 HgbA1C: 6.3 ECHO: severe EKG/tele: NSR Swallow: regular Antithrombotic/anticoagulant: asa/plavix x 1 month, the asa lifelong Prophylaxis: DVT-- SCDs Dispo: If blood pressures stable and is here to drive him, he can go home tomorrow. H e CANNOT drive himself home. He needs to call [facility]ule[facility] Hodges [facility] tomorrow to set an arnold ointment to come back in for his aortic valve (information provided in follow up section of the discharge tab) PT/OT SL/Swallow Code: Full This patient was discussed in detail with Dr. Browne, attending stroke neurologist, wh o agrees with the above, including assessment and plan. Radha Meadows PGY2 Neurology Pager [phone] Sarbjit Hobbs NP - 04/07/2012 6:23 AM PDT [facility] Neuroscience ICU Progress Note Team Pager: [phone] Attendin Attending Beading Installer: Primary Service Attending: MD Mayco Gale MD HD # 4 POD# 2 Procedure: left ICA stent ICU day # 4 HPI: Navdeep Chávez is a 71 y.o. male current smoker with severe aortic stenosis and 3 vessel CAD admitted for left ICA stent. Hospital course was uneventful however required ICU care f or the last two days due to pressor requirement. Pressors have been weaned off. *TTE on 04/02 showed LVEF 70%, moderate-severe LVH, SHAY 0.55, peak velocity 5.4, mean gradie nt 68 *Cardiac cath on 04/02 showed 40-50% L main stenosis, 70% diag 2, and 60% RCA *Carotid duplex showed an occluded R ICA 24 Hour Events: Off nicardipine since 299 Patient requesting to go home prior to aortic valve replacement to take care of family but will come back for surgery. Assessment and Plan: NEURO Acute postoperative nociceptive pain S/p ICA stent Neuro checks hourly Pain control with tylenol Cont ASA and plavix CV Hypotension-resolved Severe CAD-3v awaiting CABG NSTEMI this admission Current smoker SBP goal <140, MAP goal to <55 Avoiding tachycardia with goal HR 40-80 in setting of Cont simvastatin, asa, plavix Start nicotine patch if patient wants, smoking cessation conseling PULMO No acute issues pulm toilet, IS, OOB RENAL Preserved renal function Trend creat I/O goal: euvolemia No jackman present Fluids/ Electrolytes No acute issue Follow and replete electrolytes PRN GI no acute issue Regular diet HEM/coagulation no acute issue Follow CBC daily ID No acute issues Follow CBC daily ENDO Euglycemia SSI PRN Goal glucose <180 Muskuloskeletal/ Skin PT/OT OTHER ICU Dispo SCDs and heparin for DVT prophy, n/a for GI prophy [facility] however patient needs to return home briefly to [place] care of family before surgery. Will discuss with stroke team. Last Vitals: BP 78/44 | Pulse 45 | Temp 36.9 C (98.4 F) | RR 17 | Ht 1.829 m (6') | Wt 83 kg (182 lb 15.7 oz) | SpO2 93% | BMI 24.82 kg/(m^2) 24 Hour Vital Min/Max: Systolic (24hrs), Av mmHg, Min:78 mmHg, Max:117 mmHg Diastolic (24hrs), Av mmHg, Min:44 mmHg, Max:61 mmHg Pulse Min: 42 Max: 67 Temp Min: 36.7 C (98 F) Max: 37.4 C (99.3 F) Resp Min: 14 Max: 20 SpO2 Min: 92 % Max: 98 % Intake/Output Summary (Last 24 hours) at 04/07/12 06 Last data filed at 04/07/12 0500 Gross per 24 hour Intake 1844.03 ml Output 2280 ml Net -435.97 ml Physical Exam by systems: Neuro:awake, oriented x3, conversant, follows commands, PERRL, EOMI, tongue ML, face symmet eleanor, shrugs shoulders, MALCOLM 5/5, no drift, FTN intact Chest: clear to auscultation Cardiovascular: RRR, +murmur Abdomen: soft, nontender, nondistended, +BS Extremities: pink, warm, dry Integument:grossly intact BP 78/44 | Pulse 45 | Temp 36.9 C (98.4 F) | RR 17 | Ht 1.829 m (6') | Wt 83 kg (182 lb 15.7 oz) | SpO2 93% | BMI 24.82 kg/(m^2) Admit wt:Weight: 83 kg (182 lb 15.7 oz) (04/05/12 0600) Date 04/06/12699 - 04/07/12 0604/07/12 07 - 04/08/12 0659 Shift 8439-1025 7386-6946 4761-7694 Daily Total 2038-6248 6161-1105 8984-5862 Daily Total I N T A K E P.O. 330 420 750 I.V. 657.3 278.24 158.49 1094.03 Shift Total 987.3 698.24 158.49 1844.03 O U T P U T Urine 720 510 079 7922 Urine 720 480 252 9784 Other Stool 1 1 Shift Total 720 517 451 0761 NET 267.3 -61.76 -641.51 -435.97 Chemistries: Last 72 Hours (or 3 results): Recent Labs Basename 04/07/12 0420 04/06/12 2223 04/06/12 1729 04/06/128 04/04/12 2136 04/04/12 193 9 NA 141 -- -- 143 -- 136 K 4.1 -- -- 4.3 4.2 -- CL 115* -- -- 117* -- 106 BICARB 21* -- -- 19* -- 26 BUN 13 -- -- 16 -- 22* CR 0.92 -- -- 1.10 -- 0.89 GLU 90 98 108* -- -- -- CA 7.9* -- -- 8.0* -- 8.9 MG -- -- -- -- -- 2.5 PO4 -- -- -- -- -- -- Recent Labs Basename 04/07/1241904/06/1221704/05/12 1642 WBC 7.0 9.9 7.3 RBC 3.81* 4.14* 4.15* HB 11.8* 12.9* 13.0* HCT 35.2* 38.1* 38.0* PLT 114* 149* 148* NEUTROPERC -- -- -- BANDPCT -- -- -- LYMPHPERC -- -- -- MONOPERC -- -- -- BASOPERC -- -- -- EOSPERC -- -- -- Feeding: regular Analgesia:tylenol Sedation:none Thromboprophylaxis: Heparin SQ Head of Bed: Head of Bed >30 degrees Ulcer Prophylaxis: n/a Glycemic control: insulin sliding Relevant Risks: This patient is currently at risk for the following: electrolyte imbalan ce; arrhythmia and myocardial infarction; DVT/Pulmonary embolism and ICU delirium. I spent 30 minutes actively and independently involved in the care and management of this patient who is critically ill and is being treated for central nervous system failure at t his time. [facility] DEPARTMENT: [id number] ICU NEURO Place of Service:- Inpatient Date of Service: 04/07/2012 CSN: [id number] Suggested Modifier: None Suggested CPT: TO DECK STEWARD This patient has been staffed with Dr. Nallely Watters, attending physician, who agrees with t he above assessment and plan. REJI Yanez NP Nallely Angel MD - 04/06/2012 3:17 PM PDTNSICU ATTENDING Author: Nallely Watters MD Briefly, this is a 71 y/o man with a PMH of HTN and current smoking who had a planned admis pham for JAYCEE stenosis stenting this month. Four days ago, he developed chest pain and repor aramis [facility] where [facility] was found to have a NSTEMI. Cath showed 3 vessel disease needing CABG . In order to undergo this needed surgery, doctors recommended patient have his JAYCEE stenosi s addressed first. [facility] transferred [facility] to have this done. As it turns out, JAYCEE occluded on angio and LICA with critical stenosis. Stent placed to LICA 04/04, BP very low/hea rt rate slow. Braulio gtt started. Asymptomatic from hypotension. 24h events: Hypotension continued--pressor had to be changed to norepi due to bradycardia. Troponins negative overnight PE: Neuro: A&O x3. Language clear and fluent. PERRL. EOMI. Visual benítez full. Face symmetric. Hearing intact. TUP midline. Strength symmetric, 5/5. No sensory loss. No cerebellar signs. Pulm: CTAB CV: RRR A/P: 71 yo s/p LICA stenting, now with hypotension and bradycardia. At risk for deteriorati on due to ischemic stroke, cerebral edema, seizure, hypotension, VT, cardiac arrest 1. Neuro -Cont. ASA/Plavix -PT/OT -Mobilize -Taper steroids for cerebral edema -Frequent Neurologic checks -Pain control with tylenol 2. CV-CAD, -MAP>55 mmHg, SBP< 140 mmHg -Wean Pressor as tolerated -Cont. Simvastatin for HLP 3. Pulm Ecourage IS 4. GI//Endo -Advance diet as tolerated -Jackman catheter to removed -Continue sliding scale insulin with goal BG<200 5. Heme -Monitor H&H post-op 6. Renal -Replete electrolyes as needed 7. ID -Afebrile, no Abx -Central line--cont. 8. Proph: Stress ulcer prophylaxis with famotidine. DVT proph with SCDs, heparin SQ. Nallely Watters M.D. I spent 40 minutes in direct care of this patient with over 50% spent at the patient s be side, reviewing data, discussing the patient s care with other medical staff, charting, an d discussion with treatment decision maker. [facility] DEPARTMENT: [id number] CRITICAL CARE Place of Service: Inpatient Date of Service: 04/06/2012 CSN: [id number] Suggested Level of Care: 91573 - CRITICAL CARE, 1ST HOUR EACH DAY Shelby Addison MD - 04/06/2012 12:41 PM PDT04/06/2012 12:42 PM Spoke with patient's , Allyssa. She states that Navdeep is frightened and "traumatized " after this last procedure and he has told her that he has no desire to stay in the [facility] for his aortic valve repair. He would like to go home to recuperate for 6 weeks. She sta juan he came to this decision on his own and that her involvement was only supportive. Discussed the case with Dr. Pavon of [facility] and Dr. Cisneros of [facility]. Apparently, Mr. Chávez has known about his severe for some time and has been advised on more than one occasion by Dr. Berry ([facility]) that he needs to have urgent valve replacement. He has refused this surgery in the past, clearly informed and of his ow n volition. Dr. Pavon and Dr. Cisneros feel that he should not transfer back to the [facility] unless he commits to having the surgery done as there is no reason for him to be there othe rwise. I agree with this reasoning. Both Dr. Pavon and Dr. Cisneros believe that the degree of stenosis is severe, but that it is impossible to estimate his short term (< 6 week s) risk for cardiovascular event. As such, unless Mr. Chávez changes his mind regarding the surgery, I do not see a reason for [facility] to [facility]. He will recuperate from his carotid stent on our service and discharge home with plans to have the aortic valve replaced at time he is wi lling to have the surgery done. SHELBY REGAN MD ayco Montaño MD - 04/06/2012 10:10 AM PDT STROKE I saw and evaluated patient. I reviewed note HO and concur. 71 yo man with hx HTN, known occluded JAYCEE and >90% stenosis of LICA, amaurosis fugax, DM, tobacco use, HLD who presented to [facility] 04/01 for evaluation of the LICA stenosis, but develop an NSTEMI. He was [facility] where TTE showed severe and mitral regurgita tion. He was transferred to [facility] for LICA stenting (which occurred 04/05) prior to aortic valv e replacement. A) S/P LCAS- Doing well. Likely d/c home in AM EPIC DEPARTMENT: [facility] - [id number] Place of Service: - CSN: [id number] Suggested Modifer: GC Resident Present Suggested Level of Service: 36413 - Subsequent, Exp Prob Foc/Mod Complex 25 min Suggested Diagnosis: 433.10 - Stenosis, Carotid Artery Shelby Addison MD - 12/2011 10:10 AM PDT Stroke Service: Inpatient Progress Note 04/06/2012 10:10 AM ID: 71yo M with a history of cerebrovascular disease, multiple vascular risk factors and se aniket requiring surgical intervention who was transferred from the [facility] for management of a symptomatic severe L ICA stenosis with high risk features. SULLY stent to [facility] yesterday. Interval Hx: Bradycardia and hypotension requiring pressor support since stent. O: BP 117/61 | Pulse 50 | Temp 36.7 C (98.1 F) | RR 16 | Ht 182.9 cm (6') | Wt 83 kg (182 lb 15.7 oz) | SpO2 95% | BMI 24.82 kg/(m^2) Systolic (24hrs), Av mmHg, Min:66 mmHg, Max:145 mmHg Diastolic (24hrs), Av mmHg, Min:35 mmHg, Max:87 mmHg Pulse Av.5 Min: 39 Max: 60 Temp Av.8 C (98.3 F) Min: 36.5 C (97.7 F) Max: 37.4 C (99.3 F) General: in NAD Neurologic: Category Description Score 1a. Level of Consciousness 0=Alert 1=Drowsy 2=Stuperous 3=Coma 0 1b. LOC Questions (month, age) 0=Both correct 1=One correct 2=Incorrect 0 1c. LOC Commands (Open/close eyes, make fist, let go) 0=Obeys both correctly 1=Obeys one correctly 2=Incorrect 0 2. Best Gaze (Eyes open, patient follows examiner's finger or face) 0=Normal 1=Partial gaze palsy 2=Forced gaze deviation 0 3. Visual Benítez (Introduce visual stimulus/threat into pt's visual field quadrants) 0=No visual loss 1=Partial hemianopia 2=Complete hemianopia 3=Bilateral hemianopia (blind) 0 4. Facial Paresis (Show teeth, raise eyebrows and squeeze eyes shut) 0=Normal 1=Minor 2=Partial 3=Complete 0 5a. Motor Left Arm (Elevate arm to 90 deg if sitting, 45 if supine, hold for 10 seconds) 0= No drift 1=Drift 2=Can't resist gravity 3=No effort against gravity 4=No movement X= Untestable (joint fused or amputaion) 0 5b. Motor Right Arm As in 5a 0 6a. Motor Left Leg (Elevate to 30 deg with pt supine, hold for 5 seconds) As in 5a 0 6b. Motor Right Leg As in 5a 0 7. Limb Ataxia (finger, nose, ataxia out of proportion to weakness) 0=No ataxia 1=Ataxia in one limb 2=Ataxia in two limbs 0 8. Sensory (pin prick to face, arm, trunk, leg. Compare side to side) 0=Normal 1=Partial loss 2=Severe loss 0 9. Best Language (name an item, describe a picture, read a sentence) 0=No aphasia 1=Mild to moderate aphasia 2=Severe aphasia 3=Mute 0 10. Dysarthria (Evaluate speech clarity by patient repeating listed words) 0=Normal articul ation 1=Mild to moderate slurring 2=Near to unintelligible or worse X=Intubated or other physical barrier 0 11. Extinction and Inattention (Use information from prior testing to identify neglect or d ouble simultaneous stimuli testing) 0=No neglect 1=Partial neglect 2=Complete neglect 0 TOTAL SCORE: 0 Studies: CBC with diff last 72 hours (or 3 results) Recent Labs Basename 04/06/1221704/05/12 1642 04/04/12 1939 WBC 9.9 7.3 8.8 HB 12.9* 13.0* 16.1 HCT 38.1* 38.0* 48.0 PLT 149* 148* 165 NEUTROPERC -- -- -- BANDPCT -- -- -- LYMPHPERC -- -- -- MONOPERC -- -- -- BASOPERC -- -- -- EOSPERC -- -- -- Chemistries: Last 72 Hours (or 3 results): Recent Labs Basename 04/06/1221704/04/12 2136 04/04/12 1939 NA 143 -- 136 K 4.3 4.2 8.4* CL 117* -- 106 BICARB 19* -- 26 BUN 16 -- 22* CR 1.10 -- 0.89 CA 8.0* -- 8.9 MG -- -- 2.5 PO4 -- -- -- No components found with this basename: inr Lab Results Component Value Date CHOL 122 04/04/2012 LDL 73 04/04/2012 HDL 34 04/04/2012 TRI 77 04/04/2012 Lab Results Component Value Date A1C 6.1 04/04/2012 Assessment/Plan: 71yo M with cerebrovascular disease (R carotid occlusion, 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 SULLY yesterday. Uncomplicated procedure. Post-procedure, has had hypotension and bradycard ia requiring pressor support. Hemodynamics are more stable this morning. Hope for weaning of norepinepherine gtt today. Cont ASA 325mg and Plavix 75mg x 3 months. Pt will require correction of his aortic stenosis. CT surg at the [facility] aware of his status a nd would like him to have surgery in the next few days. They feel he is unsafe to return ho me. Pt reports he has issues at home regarding assisting with care of his parents for a few days. He will consider resources our mental health social worker can provide. Discharge to home would p rovide an inappropriate delay in managing his according to cardiology and CT surgery. F/u stroke clinic in 4-6 weeks. This patient was discussed in detail with Dr. Cantu, attending stroke neurologist, who agre es with the above, including assessment and plan. Gigi Regan MD Vascular Neurology Fellow Pager [phone] [facility] Department of Neurology adha Meadows MD - 04/06/2012 8:17 AM PDT Stroke Service: Inpatient Progress Note Interval Hx: Navdeep Chávez is a 71 yo man with hx HTN, known occluded JAYCEE and >90% stenosis of LICA, amaurosis fugax, DM, tobacco use, HLD who presented to [facility] 04/01 for evalua tion of the LICA stenosis, but develop an NSTEMI. He was admitted to the [facility] where TTE showe d severe and mitral regurgitation. He was transferred to [facility] for LICA stenting (which oc curred 04/05) prior to aortic valve replacement. S: - stent placed with reduction in stenosis from 95% to 0% - HR 40s, hypotensive. On pressors (norepi) - trops checked to make sure no cardiac event - stable at 0.06 - This morning, pt is feeling better. Wanting to get home, but understands need to stay unt il at least tomorrow. He is adamant that he must get home prior to aortic valve replacement. -did have mild bilateral blurring of vision after surgery, but denies weakness, numbness, t ingling, speech difficulties. O: BP 103/46 | Pulse 45 | Temp 36.7 C (98.1 F) | RR 17 | Wt 83 kg (182 lb 15.7 oz) | SpO2 97% Systolic (24hrs), Av mmHg, Min:66 mmHg, Max:145 mmHg Diastolic (24hrs), Av mmHg, Min:35 mmHg, Max:87 mmHg Pulse Av.5 Min: 52 Max: 73 Temp Av.9 C (98.5 F) Min: 36.7 C (98 F) Max: 37.2 C (99 F) Resp Av.7 Min: 12 Max: 20 SpO2 Av.4 % Min: 90 % Max: 97 % General: in NAD CV: Rrr Neurologic: Awake and alert, conversational, briskly follows commands, no aphasia, normal double simult aneous stimulation PERRL (3mm), blinks to threat bilaterally, EOMI, facial sensation intact and symmetric, fac e symmetric at rest and on grimace, hearing intact to voice, no dysarthria, tongue midline No drift in UEs or LEs Sensation intact and symmetric No dysmetria NIHSS 0 Studies: CBC with diff last 72 hours (or 3 results) Recent Labs Basename 04/04/12 1939 WBC 8.8 HB 16.1 HCT 48.0 PLT 165 NEUTROPERC -- BANDPCT -- LYMPHPERC -- MONOPERC -- BASOPERC -- EOSPERC -- Chemistries: Last 72 Hours (or 3 results): Recent Labs Basename 04/04/12 2136 04/04/12 1939 NA -- 136 K 4.2 8.4* CL -- 106 BICARB -- 26 BUN -- 22* CR -- 0.89 CA -- 8.9 MG -- 2.5 PO4 -- -- Lab Results Component Value Date CHOL 122 04/04/2012 LDL 73 04/04/2012 HDL 34 04/04/2012 TRI 77 04/04/2012 Assessment: Navdeep Chávez is a 71 yo man with hx HTN, known occluded JAYCEE and >90% stenosis of LICA, amaurosis fugax, DM, tobacco use, HLD who was admitted to the [facility] 04/01 for an NSTEMI, found to have severe aortic stenosis, but needed LICA stent before valve replacem ent can proceed. He is now s/p stent, requiring pressors to maintain his blood pressure. Bra dycardia and hypotension are secondary to baroreceptor stretch. Will need to continue NSICU level of care today. Plan: -continue plavix 75mg daily x 1 month -continue asa 325mg x 1 month, then ASA 81mg lifelong -cont simvastatin 20mg -goal SBP >100, <140 Stroke Workup: Vascular imaging: carotid US with occluded right ICA; 90% stenosis of LICA (angio 95% steno sis, now 0% after stenting) LDL: 62, goal <70, simvastatin 20 HgbA1C: 6.3 ECHO: severe EKG/tele: NSR Swallow: regular Antithrombotic/anticoagulant: asa/plavix x 1 month, the asa lifelong Prophylaxis: DVT-- SCDs Dispo: NSICU, pt needs to go home once stable to get someone to take care of his family. Charly horne needs to call the [facility] surgery clinic first thing Sunday to arrange admission to have his valve replaced. PT/OT SL/Swallow Code: Full This patient was discussed in detail with Dr. Browne, attending stroke neurologist, wh o agrees with the above, including assessment and plan. Radha Meadows PGY2 Neurology Pager [phone] Sabrjit Hobbs NP - 04/06/2012 5:58 AM PDT [facility] ICU Progress Note Team Pager: [phone] Attendin Attending Beading Installer: Primary Service Attending: MD Byron Gale MD HD # 3 POD# 1 Procedure: left ICA stent ICU day # 3 HPI: Navdeep Chávez is a 71 y.o. male current smoker with severe aortic stenosis and 3 vessel CAD admitted for left ICA stent. Hospital course was uneventful however patient has not bee n weaned off pressors thus far. *TTE on 04/02 showed LVEF 70%, moderate-severe LVH, SHAY 0.55, peak velocity 5.4, mean gradie nt 68 *Cardiac cath on 04/02 showed 40-50% L main stenosis, 70% diag 2, and 60% RCA *Carotid duplex showed an occluded R ICA 24 Hour Events: Successful L ICA stent Hypotensive overnight requiring pressors Assessment and Plan: NEURO Acute postoperative nociceptive pain S/p ICA stent Neuro checks hourly Pain control with tylenol, dilaudid Cont ASA and plavix CV hypotension Severe CAD-3v awaiting CABG recent NSTEMI Current smoker SBP goal <140, will relax MAP goal to <55 Avoiding tachycardia with goal HR 40-80 in setting of norepi gtt PRN, attempt to wean to off Cont simvastatin, asa, plavix Ck, trops negative Start nicotine patch if patient wants, smoking cessation conseling PULMO No acute issues pulm toilet, IS, OOB RENAL Preserved renal function Trend creat I/O goal: euvolemia No jackman present Fluids/ Electrolytes No acute issue Follow and replete electrolytes PRN GI no acute issue Regular diet HEM/coagulation no acute issue Follow CBC daily ID No acute issues Follow CBC daily ENDO Euglycemia SSI PRN Goal glucose <180 Muskuloskeletal/ Skin PT/OT OTHER ICU Dispo SCDs and heparin for DVT prophy, n/a for GI prophy [facility] Last Vitals: BP 103/46 | Pulse 44 | Temp 36.7 C (98.1 F) | RR 17 | Wt 83 kg (182 lb 15. 7 oz) | SpO2 95% 24 Hour Vital Min/Max: Systolic (24hrs), Av mmHg, Min:66 mmHg, Max:145 mmHg Diastolic (24hrs), Av mmHg, Min:35 mmHg, Max:87 mmHg Pulse Min: 39 Max: 62 Temp Min: 36.5 C (97.7 F) Max: 37.4 C (99.3 F) Resp Min: 12 Max: 21 SpO2 Min: 91 % Max: 99 % Intake/Output Summary (Last 24 hours) at 04/06/12 0559 Last data filed at 04/06/12 0400 Gross per 24 hour Intake 5055.99 ml Output 1990 ml Net 3065.99 ml Physical Exam by systems: Neuro:awake, oriented x3, conversant, follows commands, PERRL, EOMI, tongue ML, face symmet eleanor, shrugs shoulders, MALCOLM 5/5, no drift, FTN intact Chest: clear to auscultation Cardiovascular: RRR, +murmur Abdomen: soft, nontender, nondistended, +BS Extremities: pink, warm, dry Integument:grossly intact Other: BP 103/46 | Pulse 44 | Temp 36.7 C (98.1 F) | RR 17 | Wt 83 kg (182 lb 15.7 oz) | SpO2 95% Admit wt:Weight: 83 kg (182 lb 15.7 oz) (04/05/12 0600) Today s weight: 83kg Date 04/05/12 07 - 04/06/12 0659 04/06/12 07 - 04/07/12 0659 Shift 8393-0180 2701-4776 6222-7842 Daily Total 8020-8812 5578-8639 2901-0204 Daily Total I N T A K E P.O. 220 220 I.V. 1343 3238.44 179.55 4760.99 Shift Total 1343 3458.44 179.55 4980.99 O U T P U T Urine 475 267 073 4123 Urine 475 844 772 7957 Shift Total 475 692 129 9224 NET 868 2863.44 -440.45 3290.99 Chemistries: Last 72 Hours (or 3 results): Recent Labs Basename 04/06/12 0218 04/05/12 2211 04/05/12201804/04/12 2136 04/04/12 1939 NA 143 -- -- -- 136 K 4.3 -- -- 4.2 8.4* CL 117* -- -- -- 106 BICARB 19* -- -- -- 26 BUN 16 -- -- -- 22* CR 1.10 -- -- -- 0.89 GLU 119* 133* 90 -- -- CA 8.0* -- -- -- 8.9 MG -- -- -- -- 2.5 PO4 -- -- -- -- -- Recent Labs Basename 04/06/12 0218 04/05/12 1642 04/04/12 1939 WBC 9.9 7.3 8.8 RBC 4.14* 4.15* 5.22 HB 12.9* 13.0* 16.1 HCT 38.1* 38.0* 48.0 PLT 149* 148* 165 NEUTROPERC -- -- -- BANDPCT -- -- -- LYMPHPERC -- -- -- MONOPERC -- -- -- BASOPERC -- -- -- EOSPERC -- -- -- Feeding: regular Analgesia:tylenol, dilaudid Sedation:none Thromboprophylaxis: Heparin SQ Head of Bed: Head of Bed >30 degrees Ulcer Prophylaxis: n/a Glycemic control: not indicated Relevant Risks: This patient is currently at risk for the following: electrolyte imbalan ce and ischemic stroke; arrhythmia and myocardial infarction; central line associated blood stream infection. I spent 39 minutes actively and independently involved in the care and management of this patient who is critically ill and is being treated for central nervous system failure at t his time. [facility] DEPARTMENT: [id number] ICU NEURO Place of Service:- Inpatient Date of Service: 04/06/2012 CSN: [id number] Suggested Modifier: None Suggested CPT: TO DECK STEWARD This patient has been staffed with Dr. Nallely Watters, attending physician, who agrees with t he above assessment and plan. REJI Yanez NP Fariba Verde MD - 04/05/2012 7:21 PM PDT 7NSICU ATTENDING NEUROINTENSIVIST PROGRESS NOTE Team Pager: [phone] Attendin -------- EVENING NOTE -------- Date:04/05/2012 Critical Care Attending Physician: FARIBA DAUGHERTY MD Referring Attending Blaire hutton: Byron Trimble MD This evening I saw and evaluated the patient at the bedside with the HO/JIMI. I reviewed all data and the the recent imaging available. I appreciate the plan of care by the admitting ( primary) team and the consultants involved. (Relevant data is listed at the bottom of this n ote) CC / Last 12-24hr: 71 y/o male with a h/o CAD, severe , recently NSTEMI who is transferre d for carotid stenting. Clean coronary arteries, Trop 0.15, likely demand ischemia, ECHO wit h preserved EF. Today, he was found to have an occluded right carotid and a high grade steno sis of left, which was stented. Since arrival, his BP has been hypotensive and he has been b radycardic. At ~9pm, an episode of chest tightness associated with hypotension and some doub le vision. Legs were elevated and he was laid flat and pressor was changed to norepinephrine and he improved his BP and exam. Exam (during time when BP was 60-80s with MAP of 45-50)-- mentating well, no cranial nerve deficits, 5/5 in all extremities, no drift, face symmetric, no sensation deficits). Some ooz ing around right IJ site. Plan: - Carotid disease: left carotid was stented today; post op hypotension and bradycardia-- th ought secondary to baroreceptor dysfunction post op; Will r/o VT in light of recent NSTEMI and he is currently jonh-op; review post op EKG and troponin --> troponin was 0.06, will markell ck again in 6 hours along with EKG. EKG changed from 8/2 to 8/3 with t-wave inversions and a left anterior fascicular block. A cath was performed recently and he has clean coronary art eries so this is likely demand ischemia, transient from BP. With baroreceptor dysfunction-- switched to norepinephrine. Would potentially need more HR but will hold off on dopamine at this point. - tight aortic stenosis: maintain preload, maintain SVRI without excessively vasodilating, maintain NSR with normal to slower heart rate resulting in poor filling with tachycardia in setting of . Relevant Risks: This patient is currently at risk for the following: ischemic stroke; ar rhythmia and myocardial infarction; central line associated blood stream infection, DVT/Pulm onary embolism, ICU delirium and UTI. I spent 50 minutes actively involved in the care and management of this patient. Fariba Daugherty MD [facility] DEPARTMENT: [id number] ICU NEURO Place of Service:- Inpatient Date of Service: 04/05/2012 CSN: [id number] Suggested Modifier: None Suggested CPT: TO DECK STEWARD RELEVANT DATA: Last Vitals: BP 90/53 | Pulse 41 | Temp 36.9 C (98.4 F) | RR 15 | Wt 83 kg (182 lb 15.7 oz) | SpO2 96% Intake/Output Summary (Last 24 hours) at 04/05/121921 Last data filed at 04/05/12 1800 Gross per 24 hour Intake 4487.5 ml Output 1670 ml Net 2817.5 ml Recent Labs Basename 04/04/12213504/04/121938 NA -- 136 K 4.2 8.4* CL -- 106 BICARB -- 26 BUN -- 22* CR -- 0.89 CA -- 8.9 MG -- 2.5 PO4 -- -- ALB -- 4.0 Recent Labs Basename 04/05/12 1642 04/04/121938 WBC 7.3 8.8 HB 13.0* 16.1 HCT 38.0* 48.0 PLT 148* 165 NEUTROPERC -- -- BANDPCT -- -- LYMPHPERC -- -- MONOPERC -- -- BASOPERC -- -- EOSPERC -- -- adha Meadows MD - 04/05/2012 2:25 PM PDTDiscussed case with [facility]. Per Dr. Berry, pt needs to be transferred back to the [facility] once he is stable for transfer [facility] the [facility]. The y would then start him on a heparin drip and replace his aortic valve next week. Social work would do their best to help him with his home situation (parents with dementia who need his care). They strongly discourage him from going home prior to going back to the [facility] because o f the severity of aortic stenosis and risk of permanent disability and even if he goes home. If he declines transfer back to the [facility], [facility] because [facility]) and would need to call Zuleima Hodges at the [facility] to arrange to get in next week to discuss valve replacement. Zuleima Hodges (clinical data analyst) pager *[phone], ext [phone] (must be dialed from the [facility] sy stem or call the [facility] gas engine operator generators and ask them to page her). CT surgeon - Dr. Kristi Meadows PGY2 Neurology Pager [phone] John Wu Md - 04/05/2012 1:08 PM PDTINR BRIEF POST-PROCEDURE NOTE Procedure Date: 04/05/2012 1:08 PM Author: SCOTTY BENÍTEZ MD Attending Physician: Gordy Assistants: Gwendolyn Munoz Procedure performed: Diagnostic cerebral angiogram, left ICA stent, and right IJ CVC Findings: 1. L ICA 95% stenosis reduced to 0% 2. R ICA occluded at bifurcation; R supraclinoid ICA fills retrograde from enlarged opthalm ic 3. R IJ CVC OK to use Complications: None Closure: Starclose; flat x 2h hillip Browne M D - 04/05/2012 12:42 PM PDT Stroke Service Note I agree with the history, exam and care plan as per the director housekeeping's note (Dr. Regan/Fr deluca) and have examined the patient myself. ID: Navdeep Chávez is a 71 y.o. male with h/o HTN, DM2 and severe aortic stenosis who was tra nsferred from [facility] for management of Carotid stenosis. Patient was evaluated on 03/[facility] disease [facility], but during that eval developed palpitations and ended up dev eloping an NSTEMI. He had a work up including cardiac cath that demonstrated mild athero CAD , but an echo demonstrated severe that requires surgery. Patient however has known occlud ed JAYCEE, and severe LICA stenosis that needs to be addressed before treating aortic stenosis . Patient has had recurrent episodes of amaurosis fugax in the left eye over the last 3 tyler hs. S: Patient presents today in good spirits. He is eager to get his carotid treated then go h ome to care for his and parents. He denies any stroke symptoms currently, no chest pain or SOB. O: 24 Hour Vital Min/Max: Systolic (24hrs), Av mmHg, Min:106 mmHg, Max:157 mmHg Diastolic (24hrs), Av mmHg, Min:50 mmHg, Max:78 mmHg Pulse Min: 52 Max: 73 Temp Min: 36.7 C (98 F) Max: 37.2 C (99 F) Resp Min: 12 Max: 21 SpO2 Min: 90 % Max: 97 % Gen: NAD CV: RRR + murmur Resp: comfortable respirations Neuro: Mental Status: AOx4, speaks fluently, no dysarthria Cranial Nerves: PERRL, EOMI, Face Symmetric Motor: No drift, 5/5 in all ext Sensation: intact to LT Gait: Not tested LDL 73, A1c 6.3 Assessment/Plan: symptomatic carotid stenosis with recurrent episodes of amaurosis fugax. P atient currently doing well, but given that his LICA stenosis is ~90%, he will need it revas cularized. He is high risk for surgery due to contralateral occlusion and recent NSTEMI, the refore he will undergo Left Carotid Artery Stenting. -Patient loaded with plavix/ASA yesterday, continue plavix 75mg PO Daily x 1 month, and lif elong aspirin -Goal LDL ~70 -Goal SBP <140 after stent -will discuss with CT Surgery about timing of valve replacement -PT/OT -Will be back in SICU overnight after stent placement -f/u stroke clinic 1 month Stroke education provided to patient including stroke warning signs, need to dial 911, risk factor reduction, stroke medications and F/U reviewed. I spent greater than 60 minutes on this case. More than 50% of time was spent in counseling or coordination of stroke care including: Stroke education provided to patient including s troke warning signs, need to dial 911, risk factor reduction, stroke medications and F/U rev iewed. Phillip Browne M.D. Vascular Neurology Clinical Instructor [facility] DEPARTMENT: [facility] - [phone] Place of Service: - CSN: [id number] Suggested Modifer: MOR Resident Present Suggested Level of Service: 32958 - Consults, Detailed/low complex 55 min Suggested Diagnosis: 433.11 - Symptomatic Stenosis, Carotid Artery Luis Singer MD - 04/05/2012 7:59 AM PDTFormatting of this note might be different from the origi nal. Stroke Service: Inpatient Progress Note Interval Hx: Navdeep Chávez is a 71 yo man with hx HTN, known occluded JAYCEE and >90% stenosis of LICA, amaurosis fugax, DM, tobacco use, HLD who presented to [facility] 04/01 for evalua tion of the LICA stenosis, but develop palpitations and SOB. Found to have NSTEMI, trops pea ked at 0.15. He was admitted to the [facility] where TTE showed severe and mitral regurgitation. Cardiac cath found moderated CAD, but no areas for intervention. Pt needs aortic valve repla cement for his severe , but must have his stenotic LCIA addressed prior to surgery. Given his recent NSTEMI and occluded right ICA, he is not a candidate for CEA. For this reason, he has been transferred to [facility] for LICA stent placement. S: - no acute events - loaded with asa/plavix - no new symptoms. No vision loss, no weakness, aphasia - would like to get home [facility] as he cares for his parents and O: BP 106/50 | Pulse 55 | Temp 36.7 C (98 F) | RR 17 | Wt 83 kg (182 lb 15.7 oz) | SpO2 94 % Systolic (24hrs), Av mmHg, Min:106 mmHg, Max:157 mmHg Diastolic (24hrs), Av mmHg, Min:50 mmHg, Max:78 mmHg Pulse Av.5 Min: 52 Max: 73 Temp Av.9 C (98.5 F) Min: 36.7 C (98 F) Max: 37.2 C (99 F) Resp Av.7 Min: 12 Max: 20 SpO2 Av.4 % Min: 90 % Max: 97 % General: in NAD CV: Rrr Neurologic: Awake and alert, conversational, briskly follows commands, no aphasia, normal double simult aneous stimulation PERRL (3mm), blinks to threat bilaterally, EOMI, facial sensation intact and symmetric, fac e symmetric at rest and on grimace, hearing intact to voice, no dysarthria, tongue midline No drift in UEs or LEs Sensation intact and symmetric No dysmetria NIHSS 0 Studies: CBC with diff last 72 hours (or 3 results) Recent Labs Basename 04/04/12 1939 WBC 8.8 HB 16.1 HCT 48.0 PLT 165 NEUTROPERC -- BANDPCT -- LYMPHPERC -- MONOPERC -- BASOPERC -- EOSPERC -- Chemistries: Last 72 Hours (or 3 results): Recent Labs Basename 04/04/12 2136 04/04/121938 NA -- 136 K 4.2 8.4* CL -- 106 BICARB -- 26 BUN -- 22* CR -- 0.89 CA -- 8.9 MG -- 2.5 PO4 -- -- Lab Results Component Value Date CHOL 122 04/04/2012 LDL 73 04/04/2012 HDL 34 04/04/2012 TRI 77 04/04/2012 Assessment: Navdeep Chávez is a 71 yo man with hx HTN, known occluded JAYCEE and >90% stenosis of LICA, amaurosis fugax, DM, tobacco use, HLD who was admitted to the [facility] 04/01 for an NSTEMI, found to have severe aortic stenosis, but needs LICA stent before valve replaceme nt can proceed. He has no neurologic complaints at the moment and NIHSS is zero. He does hav e a history of amaurosis fugax on the left, making the LICA stenosis symptomatic. Plan is fo r angio with stent placement today. He needs to get home to take care of his family as soon as possible. I will discuss this with his [facility] providers to see when he needs to follow up for possible valve replacement. CT surgery notes suggest possibly replacing the valve the day a fter stent, but will need to see if pt is willing to do this and if there are any alternativ es. Plan: -plavix/asa load complete -continue plavix 75mg daily x 1 month -continue asa 325mg x 1 month, then ASA 81mg lifelong -cont simvastatin 20mg Stroke Workup: Vascular imaging: carotid US with occluded right ICA; 90% stenosis of LICA LDL: 62, goal <70, simvastatin 20 HgbA1C: 6.3 ECHO: severe EKG/tele: NSR Swallow: regular Antithrombotic/anticoagulant: asa/plavix x 1 month, the asa lifelong Prophylaxis: DVT-- SCDs Dispo: To NSICU after stent placement, depends on blood pressures and [facility] plan for [facility] valve PT/OT SL/Swallow Code: Full This patient was discussed in detail with Dr. Browne, attending stroke neurologist, wh o agrees with the above, including assessment and plan. Radha Meadows PGY2 Neurology Pager [phone] Nallely Angel MD - 04/05/2012 7:30 AM [facility] ATTENDING Author: Nallely Watters MD I have evaluated the patient together with Dr. Charles and agree with the assessment and plan of care. Briefly, this is a 71 y/o man with a PMH of HTN and current smoking who had a planned admis pham for JAYCEE stenosis stenting this month. Four days ago, he developed chest pain and repor aramis to the [facility] where he was found to have a NSTEMI. Cath showed 3 vessel disease needing CABG . In order to undergo this needed surgery, doctors recommended patient have his JAYCEE stenosi s addressed first. Patient transferred from the [facility] to have this done. As it turns out, JAYCEE occluded on angio and LICA with critical stenosis. 24h events: Stent placed to LICA overnight, BP very low/heart rate slow. Braulio gtt started. A symptomatic from hypotension. PE: See Dr. Charles's note A/P: 71 yo s/p LICA stenting, now with hypotension and bradycardia. At risk for deteriorati on due to ischemic stroke, cerebral edema, seizure, hypotension, VT, cardiac arrest 1. Neuro -Cont. ASA/Plavix -PT/OT -Mobilize -Taper steroids for cerebral edema -Frequent Neurologic checks -Pain control with tylenol 2. CV -MAP>65 mmHg, SBP< 180 mmHg -Cont. Pressor as needed -Cont. Simvastatin for HLP 3. Pulm Ecourage IS 4. GI//Endo -Advance diet as tolerated -Jackman catheter to removed -Continue sliding scale insulin with goal BG<200 5. Heme -Monitor H&H post-op 6. Renal -Replete electrolyes as needed 7. ID -Afebrile, no Abx -Central line--cont. 8. Proph: Stress ulcer prophylaxis with famotidine. DVT proph with SCDs, heparin SQ. Nallely Watters M.D. I spent 45 minutes in direct care of this patient with over 50% spent at the patient s be side, reviewing data, discussing the patient s care with other medical staff, charting, an d discussion with treatment decision maker. [facility] DEPARTMENT: [id number] CRITICAL CARE Place of Service: Inpatient Date of Service: 04/05/2012 CSN: [id number] Suggested Level of Care: 64970 - CRITICAL CARE, 1ST HOUR EACH DAY Cesilia Saravia MD - 04/05/2012 5:57 AM PDT [facility] Neuroscience ICU Progress Note Team Pager: [phone] Attendin Attending Beading Installer: Primary Service Attending: MD Byron Gale MD ICU Day #2 POD#0 Procedure: Diagnostic cerebral angiogram, left ICA stent, and right IJ CVC HPI: Navdeep Chávez is a 71 y.o. male smoker with recently diagnosed severe aortic stenosis ( SHAY 0.55, gradient 68) and 3vCAD with associated NSTEMI who was admitted for carotid stentin g in the context of R ICA occlusion and 95% stenosis of the L ICA. Briefly, [facility] after noting significant lightheadedness and palpitations (no chest pain ) while moving around some luggage. [facility] know n carotid bruits, though has no h/o TIA or CVA. He did have a troponin bump to 0.15 with as sociated lateral TWI. 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 It was decided that his carotid disease should be treated before undergoing AVR/CABG, thus he was transferred here yesterday. 24 Hour Events: Plavix loaded overnight. Underwent L ICA stent under angio today. Intraoperative findings were: 1. L ICA 95% stenosis reduced to 0% 2. R ICA occluded at bifurcation; R supraclinoid ICA fills retrograde from enlarged ophthal jo 3. R IJ CVC OK to use Of note, he also had an unsuccessful R subclavian puncture (R IJ ultimately placed). His i ntraoperative course was uneventful. He had a MAC anesthetic with Precedex, fentanyl, and m idazolam. His HR stayed in the 40s-50s throughout despite progressive doses of glycopyrrola te and atropine. EBL 75, IVF 900. Post-operatively he is requiring phenylephrine gtt ranging from 0.1-0.2 mcg/kg/min, with BP s responding well to progressive IVF boluses (currently s/p 2L NS post-op). He denies chest pain, dyspnea, vision changes, lightheadedness. His neuro exam remains intact. Assessment and Plan: NEURO Occluded R ICA, new stent to L ICA, asymptomatic Acute post-operative pain Continue Plavix, ASA APAP, HM IV for breakthrough Mobilize once limitations for groin site have passed. At risk for reperfusion injury. Goal SBP<140 Simvastatin CV Severe , awaiting AVR 3v CAD, awaiting CABG Post-operative hypertension, suspect 2/2 hypovolemia and carotid body sensitivity Recent NSTEMI. Troponin downtrending post-op Tobacco abuse, abstaining [facility] once stable from a carotid persp ective Avoid tachycardia. Goal HR <80 and >40 Phenylephrine gtt prn. Goal MAP>65, SBP<140 IVF bolus prn. Avoid decreased afterload. Consider titrating doses of glycopyrrolate or atropine if HR<40, but beware of potential to overshoot Consider tobacco replacement meds, though ideally nicotine would be avoided altogether Simvastatin. 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 Info rmed CM that he will likely be able to transfer tomorrow. Physical Exam by sytems: Neuro: Awake, alert, oriented x3. Appropriate. PERRL, EOMI, symmetric eyebrow raise and smile Tongue midline, symmetric palate raise. Full shoulder shrug and neck turn. Sensation intact to light touch in UE, LE, and V1-V3 5/5 strength in UE and LE FTN intact bilaterally. Chest: CTAB Cardiovascular: Bradycardic, regular. 3/6 nearly holosystolic late peaking harsh murmur t hroughout precordium and radiating towards neck. Abdomen: NABS, soft, NT/ND Extremities: No edema. Warm, well perfused. Integument: Old ecchymosis at R groin, stable. Minimal oozing at R groin and slight oozin g at R IJ. No R femoral bruit. No significant ecchymosis noted at R subclavian. Other: R radial AL, R IJ central line, PIVs BP 148/78 | Pulse 52 | Temp 36.7 C (98 F) | RR 18 | SpO2 96% Admit wt: Date 04/04/12699 - 04/05/1259 04/05/12699 - 04/06/12 0659 Shift [id number] 0937-2774 6135-6229 Daily Total 2934-9321 3839-1062 1697-2068 Daily Total I N T A K E P.O. 240 240 I.V. 40 470 510 Shift Total 280 470 750 O U T P U T Urine 250 370 620 Urine 250 370 620 Shift Total 250 370 620 NET 30 100 130 Feeding: NPO. ADAT once no longer needing to lay flat Analgesia: APAP, HM prn breakthrough Sedation: none Thromboprophylaxis: Heparin SQ Head of Bed: Flat while recovering from angio, then >30 degrees Ulcer Prophylaxis: Not applicable Glycemic control: Euglycemic This patient has been staffed with Dr. Nallely Watters, attending physician, who agrees with t kevin above assessment and plan. Cesilia Charles MD documented in this en counter Plan of Treatment Not on filedocumented as of this encounter Procedures + +--------+ + + + | Procedure Name | Priori | Date/Time | Associated Diagnosis | Comments | | | ty | | | | + +--------+ + + + | X-RAY CHEST 2 VIEW | Routin | 04/08/2012 | | Results for this | | | e | 10:19 AM | | procedure are in the | | | | PDT | | results section. | + +--------+ + + + | CAPILLARY BLOOD | Routin | 04/07/2012 | | Results for this | | GLUCOSE (NO CHG), | e | 8:19 AM | | procedure are in the | | POC | | PDT | | results section. | + +--------+ + + + | BASIC METABOLIC SET | Urgent | 04/07/2012 | | Results for this | | (NA, K, CL, TCO2, | | 4:45 AM | | procedure are in the | | BUN, CR, GLU, CA) | | PDT | | results section. | + +--------+ + + + | CBC ONLY | Routin | 04/07/2012 | | Results for this | | | e | 4:45 AM | | procedure are in the | | | | PDT | | results section. | + +--------+ + + + | BASIC METABOLIC SET | Urgent | 04/07/2012 | | Results for this | | (NA, K, CL, TCO2, | | 4:20 AM | | procedure are in the | | BUN, CR, GLU, CA) | | PDT | | results section. | + +--------+ + + + | CBC ONLY | Urgent | 04/07/2012 | | Results for this | | | | 4:20 AM | | procedure are in the | | | | PDT | | results section. | + +--------+ + + + | CAPILLARY BLOOD | Routin | 04/06/2012 | | Results for this | | GLUCOSE (NO CHG), | e | 10:23 PM | | procedure are in the | | POC | | PDT | | results section. | + +--------+ + + + | CAPILLARY BLOOD | Routin | 04/06/2012 | | Results for this | | GLUCOSE (NO CHG), | e | 5:29 PM | | procedure are in the | | POC | | PDT | | results section. | + +--------+ + + + | CAPILLARY BLOOD | Routin | 04/06/2012 | | Results for this | | GLUCOSE (NO CHG), | e | 9:59 AM | | procedure are in the | | POC | | PDT | | results section. | + +--------+ + + + | 12 LEAD ECG | Routin | 04/06/2012 | | Results for this | | | e | 4:41 AM | | procedure are in the | | | | PDT | | results section. | + +--------+ + + + | TROPONIN I, PLASMA | Urgent | 04/06/2012 | | Results for this | | | | 2:18 AM | | procedure are in the | | | | PDT | | results section. | + +--------+ + + + | BASIC METABOLIC SET | Urgent | 04/06/2012 | | Results for this | | (NA, K, CL, TCO2, | | 2:18 AM | | procedure are in the | | BUN, CR, GLU, CA) | | PDT | | results section. | + +--------+ + + + | CBC ONLY | Routin | 04/06/2012 | | Results for this | | | e | 2:18 AM | | procedure are in the | | | | PDT | | results section. | + +--------+ + + + | CAPILLARY BLOOD | Routin | 04/05/2012 | | Results for this | | GLUCOSE (NO CHG), | e | 10:11 PM | | procedure are in the | | POC | | PDT | | results section. | + +--------+ + + + | 12 LEAD ECG | Urgent | 04/05/2012 | | Results for this | | | | 8:52 PM | | procedure are in the | | | | PDT | | results section. | + +--------+ + + + | TROPONIN I, PLASMA | Routin | 04/05/2012 | | Results for this | | | e | 8:50 PM | | procedure are in the | | | | PDT | | results section. | + +--------+ + + + | CKMB,SERUM | Routin | 04/05/2012 | | Results for this | | | e | 8:50 PM | | procedure are in the | | | | PDT | | results section. | + +--------+ + + + | CK, PLASMA | Routin | 04/05/2012 | | Results for this | | | e | 8:50 PM | | procedure are in the | | | | PDT | | results section. | + +--------+ + + + | CAPILLARY BLOOD | Routin | 04/05/2012 | | Results for this | | GLUCOSE (NO CHG), | e | 8:19 PM | | procedure are in the | | POC | | PDT | | results section. | + +--------+ + + + | CBC ONLY | Urgent | 04/05/2012 | | Results for this | | | | 4:42 PM | | procedure are in the | | | | PDT | | results section. | + +--------+ + + + | TROPONIN I, PLASMA | Urgent | 04/05/2012 | | Results for this | | | | 3:06 PM | | procedure are in the | | | | PDT | | results section. | + +--------+ + + + | 12 LEAD ECG | Routin | 04/05/2012 | | Results for this | | | e | 2:20 PM | | procedure are in the | | | | PDT | | results section. | + +--------+ + + + | ARCH/CAROTID | Routin | 04/05/2012 | | Results for this | | | e | 1:25 PM | | procedure are in the | | | | PDT | | results section. | + +--------+ + + + | ACT, POC RESULT | Routin | 04/05/2012 | | Results for this | | | e | 12:51 PM | | procedure are in the | | | | PDT | | results section. | + +--------+ + + + | P2Y12 INHIBITION, | Routin | 04/05/2012 | | Results for this | | POC | e | 12:30 PM | | procedure are in the | | | | PDT | | results section. | + +--------+ + + + | ASPIRIN PLATELET | Routin | 04/05/2012 | | Results for this | | INHIBITION, POC | e | 12:30 PM | | procedure are in the | | | | PDT | | results section. | + +--------+ + + + | ACT, POC RESULT | Routin | 04/05/2012 | | Results for this | | | e | 12:27 PM | | procedure are in the | | | | PDT | | results section. | + +--------+ + + + | ANESTHESIA/SEDATION | | 04/05/2012 | | Results for this | | | | 12:00 AM | | procedure are in the | | | | PDT | | results section. | + +--------+ + + + | POTASSIUM, PLASMA | Routin | 04/04/2012 | | Results for this | | | e | 9:36 PM | | procedure are in the | | | | PDT | | results section. | + +--------+ + + + | 12 LEAD ECG | Routin | 04/04/2012 | | Results for this | | | e | 7:56 PM | | procedure are in the | | | | PDT | | results section. | + +--------+ + + + | INR | Urgent | 04/04/2012 | | Results for this | | | | 7:39 PM | | procedure are in the | | | | PDT | | results section. | + +--------+ + + + | TROPONIN I, PLASMA | Urgent | 04/04/2012 | | Results for this | | | | 7:39 PM | | procedure are in the | | | | PDT | | results section. | + +--------+ + + + | COMPLETE METABOLIC | Urgent | 04/04/2012 | | Results for this | | SET | | 7:39 PM | | procedure are in the | | (NA,K,CL,CO2,BUN,CRE | | PDT | | results section. | | AT,GLUC,CA,AST,ALT,B | | | | | | KATHERINE TOTAL,ALK | | | | | | PHOS,ALB,PROT TOTAL) | | | | | + +--------+ + + + | CBC ONLY | Urgent | 04/04/2012 | | Results for this | | | | 7:39 PM | | procedure are in the | | | | PDT | | results section. | + +--------+ + + + | APTT (ACT. PART. | Urgent | 04/04/2012 | | Results for this | | THROMBO TIME) | | 7:39 PM | | procedure are in the | | | | PDT | | results section. | + +--------+ + + + | TYPE AND SCREEN | Urgent | 04/04/2012 | | Results for this | | | | 7:39 PM | | procedure are in the | | | | PDT | | results section. | + +--------+ + + + | LIPID SET (TRIG, T | Urgent | 04/04/2012 | | Results for this | | CHOL, HDL, CALC LDL) | | 7:39 PM | | procedure are in the | | | | PDT | | results section. | + +--------+ + + + | HEMOGLOBIN A1C, | Urgent | 04/04/2012 | | Results for this | | BLOOD | | 7:39 PM | | procedure are in the | | | | PDT | | results section. | + +--------+ + + + | MAGNESIUM, PLASMA | Urgent | 04/04/2012 | | Results for this | | | | 7:39 PM | | procedure are in the | | | | PDT | | results section. | + +--------+ + + + documented in this encounter Results X-RAY CHEST 2 VIEW (04/08/2012 10:19 AM PDT) + + + + + + | Component | Value | Ref Range | Performed | Pathologist | | | | | At | Signature | + + + + + + | CHEST, 2 | EXAM: PA and lateral | | | | | VIEWS [place] | chest. COMPARISON: None | | | | | STEREO | INDICATION: Cough | | | | | | FINDINGS: The cardiac | | | | | | silhouette is normal in | | | | | | size. | | | | | | Pulmonaryarteries are | | | | | | not enlarged. Thoracic | | | | | | aorta is tortuous. The | | | | | | lungs are hyperinflated | | | | | | with flattening of the | | | | | | diaphragm. Mildairway | | | | | | thickening is noted, and | | | | | | there is no | | | | | | consolidation or | | | | | | edema.There is no | | | | | | pleural effusion, | | | | | | although minimal pleural | | | | | | thickening issuspected | | | | | | not viewed with concern. | | | | | | Osseous structures | | | | | | areunremarkable. | | | | | | IMPRESSION: Obstructive | | | | | | pulmonary physiology, no | | | | | | findings for pneumonia. | | | | | | Attending Radiologists: | | | | | | Edy Schaefer, | | | | | | JustoAuthor: Edy Neumann | | | | | | Justo Schaefer I have | | | | | | personally viewed this | | | | | | procedure/exam, reviewed | | | | | | this report,and made | | | | | | changes to it where | | | | | | appropriate. | | | | | | Final/Electronically | | | | | | signed / Edy Neumann | | | | | | [place] 04/08/2012 | | | | | | 10:25 AM | | | | + + + + + + + + | Specimen | + + | | + + + +---------+ + + | Performing | Address | City/State/Zipcode | Phone Number | | Organization | | | | + +---------+ + + | [facility] | | | | | RADIOLOGY | | | | + +---------+ + + CAPILLARY BLOOD GLUCOSE, POC (04/07/2012 8:19 AM PDT) + +-------+ + + + | Component | Value | Ref Range | Performed | Pathologist | | | | | At | Signature | + +-------+ + + + | BLOOD | 96 | 60 - 99 mg/dL | [facility] - | | | GLUCOSE, | | | [facility] | | | POC | | | [facility] | | | | | | OF CARE | | | | | | TESTS | | + +-------+ + + + + + | Specimen | + + | | + + + + + + + | Performing | Address | City/State/Zipcode | Phone Number | | Organization | | | | + + + + + | [facility] | [address] | [place], [place] | | | [facility] | [facility] | [phone] | | | TESTS | | | | + + + + + BASIC METABOLIC SET (NA, K, CL, TCO2, BUN, CR, GLU, CA) (04/07/2012 4:45 AM PDT) + + + + + + | Component | Value | Ref Range | Performed | Pathologist | | | | | At | Signature | + + + + + + | GLUCOSE, | Not Recd | 60 - 99 mg/dL | [facility] | | | PLASMA | | | DEPARTMENT | | | (LAB) | | | OF | | | | | | PATHOLOGY | | + + + + + + | BUN, PLASMA | Not Recd | 6 - 20 mg/dL | [facility] | | | (LAB) | | | DEPARTMENT | | | | | | OF | | | | | | PATHOLOGY | | + + + + + + | CREATININE | Not Recd | 0.70 - 1.30 | [facility] | | | PLASMA | | mg/dL | DEPARTMENT | | | (LAB) | | | OF | | | | | | PATHOLOGY | | + + + + + + | SODIUM, | Not Recd | 134 - 143 | [facility] | | | PLASMA | | mmol/L | DEPARTMENT | | | (LAB) | | | OF | | | | | | PATHOLOGY | | + + + + + + | POTASSIUM, | Not Recd | 3.4 - 5.0 | [facility] | | | PLASMA | | mmol/L | DEPARTMENT | | | (LAB) | | | OF | | | | | | PATHOLOGY | | + + + + + + | CHLORIDE, | Not Recd | 97 - 108 mmol/L | [facility] | | | PLASMA | | | DEPARTMENT | | | (LAB) | | | OF | | | | | | PATHOLOGY | | + + + + + + | TOTAL CO2, | Not Recd | 22 - 29 mmol/L | [facility] | | | PLASMA | | | DEPARTMENT | | | (LAB) | | | OF | | | | | | PATHOLOGY | | + + + + + + | CALCIUM, | Not Recd | 8.6 - 10.2 | [facility] | | | PLASMA | | mg/dL | DEPARTMENT | | | (LAB) | | | OF | | | | | | PATHOLOGY | | + + + + + + | POTASSIUM | Not Recd | | [facility] | | | CMNT | | | DEPARTMENT | | | | | | OF | | | | | | PATHOLOGY | | + + + + + + + + | Specimen | + + | Blood - Blood | + + + + + + + | Performing | Address | City/State/Zipcode | Phone Number | | Organization | | | | + + + + + | [facility] | [address] | [place] [address] | | | PATHOLOGY | [address] | | | + + + + + CBC ONLY (04/07/2012 4:45 AM PDT) + + + + + + | Component | Value | Ref Range | Performed | Pathologist | | | | | At | Signature | + + + + + + | WHITE CELL | Not Recd | 4.4 - 11.0 K/cu | [facility] | | | COUNT | | mm | DEPARTMENT | | | | | | OF | | | | | | PATHOLOGY | | + + + + + + | RED CELL | Not Recd | 4.50 - 5.90 | [facility] | | | COUNT | | M/cu mm | DEPARTMENT | | | | | | OF | | | | | | PATHOLOGY | | + + + + + + | HEMOGLOBIN | Not Recd | 13.5 - 17.5 | [facility] | | | | | g/dL | DEPARTMENT | | | | | | OF | | | | | | PATHOLOGY | | + + + + + + | HEMATOCRIT | Not Recd | 41.0 - 53.0 % | [facility] | | | | | | DEPARTMENT | | | | | | OF | | | | | | PATHOLOGY | | + + + + + + | MCV | Not Recd | 80.0 - 96.0 fL | [facility] | | | | | | DEPARTMENT | | | | | | OF | | | | | | PATHOLOGY | | + + + + + + | MCHC | Not Recd | 33.4 - 35.5 | [facility] | | | | | g/dL | DEPARTMENT | | | | | | OF | | | | | | PATHOLOGY | | + + + + + + | RDW | Not Recd | 11.5 - 15.0 % | [facility] | | | | | | DEPARTMENT | | | | | | OF | | | | | | PATHOLOGY | | + + + + + + | PLATELET | Not Recd | 150 - 400 K/cu | [facility] | | | COUNT | | mm | DEPARTMENT | | | | | | OF | | | | | | PATHOLOGY | | + + + + + + + + | Specimen | + + | Blood - Blood | + + + + + + + | Performing | Address | City/State/Zipcode | Phone Number | | Organization | | | | + + + + + | [facility] | [address] | [place] [address] | | | PATHOLOGY | [address] | | | + + + + + CBC ONLY (04/07/2012 4:20 AM PDT) + + + + + + | Component | Value | Ref Range | Performed | Pathologist | | | | | At | Signature | + + + + + + | WHITE CELL | 7.0 | 4.4 - 11.0 K/cu | [facility] | | | COUNT | | mm | DEPARTMENT | | | | | | OF | | | | | | PATHOLOGY | | + + + + + + | RED CELL | 3.81 (L) | 4.50 - 5.90 | [facility] | | | COUNT | | M/cu mm | DEPARTMENT | | | | | | OF | | | | | | PATHOLOGY | | + + + + + + | HEMOGLOBIN | 11.8 (L) | 13.5 - 17.5 | [facility] | | | | | g/dL | DEPARTMENT | | | | | | OF | | | | | | PATHOLOGY | | + + + + + + | HEMATOCRIT | 35.2 (L) | 41.0 - 53.0 % | [facility] | | | | | | DEPARTMENT | | | | | | OF | | | | | | PATHOLOGY | | + + + + + + | MCV | 92.6 | 80.0 - 96.0 fL | [facility] | | | | | | DEPARTMENT | | | | | | OF | | | | | | PATHOLOGY | | + + + + + + | MCHC | 33.6 | 33.4 - 35.5 | [facility] | | | | | g/dL | DEPARTMENT | | | | | | OF | | | | | | PATHOLOGY | | + + + + + + | RDW | 14.2 | 11.5 - 15.0 % | [facility] | | | | | | DEPARTMENT | | | | | | OF | | | | | | PATHOLOGY | | + + + + + + | PLATELET | 114 (L) | 150 - 400 K/cu | [facility] | | | COUNT | | mm | DEPARTMENT | | | | | | OF | | | | | | PATHOLOGY | | + + + + + + + + | Specimen | + + | | + + + + + + + | Performing | Address | City/State/Zipcode | Phone Number | | Organization | | | | + + + + + | [facility] | [address] | [place] [address] | | | PATHOLOGY | [address] | | | + + + + + BASIC METABOLIC SET (NA, K, CL, TCO2, BUN, CR, GLU, CA) (04/07/2012 4:20 AM PDT) + +---------+ + + + | Component | Value | Ref Range | Performed | Pathologist | | | | | At | Signature | + +---------+ + + + | GLUCOSE, | 90 | 60 - 99 mg/dL | [facility] | | | PLASMA | | | DEPARTMENT | | | (LAB) | | | OF | | | | | | PATHOLOGY | | + +---------+ + + + | BUN, PLASMA | 13 | 6 - 20 mg/dL | [facility] | | | (LAB) | | | DEPARTMENT | | | | | | OF | | | | | | PATHOLOGY | | + +---------+ + + + | CREATININE | 0.92 | 0.70 - 1.30 | [facility] | | | PLASMA | | mg/dL | DEPARTMENT | | | (LAB) | | | OF | | | | | | PATHOLOGY | | + +---------+ + + + | SODIUM, | 141 | 134 - 143 | [facility] | | | PLASMA | | mmol/L | DEPARTMENT | | | (LAB) | | | OF | | | | | | PATHOLOGY | | + +---------+ + + + | POTASSIUM, | 4.1 | 3.4 - 5.0 | [facility] | | | PLASMA | | mmol/L | DEPARTMENT | | | (LAB) | | | OF | | | | | | PATHOLOGY | | + +---------+ + + + | CHLORIDE, | 115 (H) | 97 - 108 mmol/L | [facility] | | | PLASMA | | | DEPARTMENT | | | (LAB) | | | OF | | | | | | PATHOLOGY | | + +---------+ + + + | TOTAL CO2, | 21 (L) | 22 - 29 mmol/L | [facility] | | | PLASMA | | | DEPARTMENT | | | (LAB) | | | OF | | | | | | PATHOLOGY | | + +---------+ + + + | CALCIUM, | 7.9 (L) | 8.6 - 10.2 | [facility] | | | PLASMA | | mg/dL | DEPARTMENT | | | (LAB) | | | OF | | | | | | PATHOLOGY | | + +---------+ + + + | ANION GAP | 5 | 4 - 11 mmol/L | [facility] | | | | | | DEPARTMENT | | | | | | OF | | | | | | PATHOLOGY | | + +---------+ + + + + + | Specimen | + + | | + + + + + + + | Performing | Address | City/State/Zipcode | Phone Number | | Organization | | | | + + + + + | [facility] | [address] | [place] [address] | | | PATHOLOGY | [address] | | | + + + + + CAPILLARY BLOOD GLUCOSE, POC (04/06/2012 10:23 PM PDT) + +-------+ + + + | Component | Value | Ref Range | Performed | Pathologist | | | | | At | Signature | + +-------+ + + + | BLOOD | 98 | 60 - 99 mg/dL | [facility] - | | | GLUCOSE, | | | [facility] | | | POC | | | [facility] | | | | | | OF CARE | | | | | | TESTS | | + +-------+ + + + + + | Specimen | + + | | + + + + + + + | Performing | Address | City/State/Zipcode | Phone Number | | Organization | | | | + + + + + | [facility] | [address] | [place], [place] | | | [facility] | [address] | [phone] | | | TESTS | | | | + + + + + CAPILLARY BLOOD GLUCOSE, POC (04/06/2012 5:29 PM PDT) + +---------+ + + + | Component | Value | Ref Range | Performed | Pathologist | | | | | At | Signature | + +---------+ + + + | BLOOD | 108 (H) | 60 - 99 mg/dL | [facility] - | | | GLUCOSE, | | | [facility] | | | POC | | | [facility] | | | | | | OF CARE | | | | | | TESTS | | + +---------+ + + + + + | Specimen | + + | | + + + + + + + | Performing | Address | City/State/Zipcode | Phone Number | | Organization | | | | + + + + + | [facility] | [address] | [place], [place] | | | [facility] | [facility] | [phone] | | | TESTS | | | | + + + + + CAPILLARY BLOOD GLUCOSE, POC (04/06/2012 9:59 AM PDT) + +---------+ + + + | Component | Value | Ref Range | Performed | Pathologist | | | | | At | Signature | + +---------+ + + + | BLOOD | 115 (H) | 60 - 99 mg/dL | [facility] - | | | GLUCOSE, | | | [facility] | | | POC | | | [facility] | | | | | | OF CARE | | | | | | TESTS | | + +---------+ + + + + + | Specimen | + + | | + + + + + + + | Performing | Address | City/State/Zipcode | Phone Number | | Organization | | | | + + + + + | [facility] | [address] | [place], [place] | | | [facility] | [address] | [phone] | | | TESTS | | | | + + + + + 12 LEAD ECG (04/06/2012 4:41 AM PDT) + + + + + + | Component | Value | Ref Range | Performed | Pathologist | | | | | At | Signature | + + + + + + | VENTRICULAR | 44 | BPM | [facility] | | | RATE | | | OF | | | | | | CARDIOLOGY | | + + + + + + | ATRIAL RATE | 44 | BPM | [facility] | | | | | | OF | | | | | | CARDIOLOGY | | + + + + + + | P-R | 208 | ms | [facility] | | | INTERVAL | | | OF | | | | | | CARDIOLOGY | | + + + + + + | QRS | 124 | ms | [facility] | | | DURATION | | | OF | | | | | | CARDIOLOGY | | + + + + + + | QT | 502 | ms | [facility] | | | | | | OF | | | | | | CARDIOLOGY | | + + + + + + | QTC | 429 | ms | [facility] | | | | | | OF | | | | | | CARDIOLOGY | | + + + + + + | P AXIS | 51 | degrees | [facility] | | | | | | OF | | | | | | CARDIOLOGY | | + + + + + + | R AXIS | -66 | degrees | [facility] | | | | | | OF | | | | | | CARDIOLOGY | | + + + + + + | T AXIS | 154 | degrees | [facility] | | | | | | OF | | | | | | CARDIOLOGY | | + + + + + + | EKG | Marked sinus | | [facility] | | | DIAGNOSIS | bradycardiaLeft anterior | | OF | | | | fascicular blockLeft | | CARDIOLOGY | | | | ventricular hypertrophy | | | | | | with QRS wideningST & T | | | | | | wave abnormality, | | | | | | consider lateral | | | | | | ischemiaAbnormal ECG"I | | | | | | have personally | | | | | | interpreted this report, | | | | | | either alone or with a | | | | | | trainee."Confirmed by | | | | | | YANCY PEREZ ([id number]) on | | | | | | 04/07/2012 8:12:24 AM | | | | + + + + + + + + | Specimen | + + | | + + + + + | Narrative | Performed At | + + + | Please click | [facility] | | on view image for the detailed interpretation from Inst[employer]ia results. | CARDIOLOGY | + + + + + + + + | Performing | Address | City/State/Zipcode | Phone Number | | Organization | | | | + + + + + | [facility] | [address] | [place], [place] | | | CARDIOLOGY | [address] | [address] | | + + + + + BASIC METABOLIC SET (NA, K, CL, TCO2, BUN, CR, GLU, CA) (04/06/2012 2:18 AM PDT) + +---------+ + + + | Component | Value | Ref Range | Performed | Pathologist | | | | | At | Signature | + +---------+ + + + | GLUCOSE, | 119 (H) | 60 - 99 mg/dL | [facility] | | | PLASMA | | | DEPARTMENT | | | (LAB) | | | OF | | | | | | PATHOLOGY | | + +---------+ + + + | BUN, PLASMA | 16 | 6 - 20 mg/dL | [facility] | | | (LAB) | | | DEPARTMENT | | | | | | OF | | | | | | PATHOLOGY | | + +---------+ + + + | CREATININE | 1.10 | 0.70 - 1.30 | [facility] | | | PLASMA | | mg/dL | DEPARTMENT | | | (LAB) | | | OF | | | | | | PATHOLOGY | | + +---------+ + + + | SODIUM, | 143 | 134 - 143 | [facility] | | | PLASMA | | mmol/L | DEPARTMENT | | | (LAB) | | | OF | | | | | | PATHOLOGY | | + +---------+ + + + | POTASSIUM, | 4.3 | 3.4 - 5.0 | [facility] | | | PLASMA | | mmol/L | DEPARTMENT | | | (LAB) | | | OF | | | | | | PATHOLOGY | | + +---------+ + + + | CHLORIDE, | 117 (H) | 97 - 108 mmol/L | [facility] | | | PLASMA | | | DEPARTMENT | | | (LAB) | | | OF | | | | | | PATHOLOGY | | + +---------+ + + + | TOTAL CO2, | 19 (L) | 22 - 29 mmol/L | [facility] | | | PLASMA | | | DEPARTMENT | | | (LAB) | | | OF | | | | | | PATHOLOGY | | + +---------+ + + + | CALCIUM, | 8.0 (L) | 8.6 - 10.2 | [facility] | | | PLASMA | | mg/dL | DEPARTMENT | | | (LAB) | | | OF | | | | | | PATHOLOGY | | + +---------+ + + + | ANION GAP | 7 | 4 - 11 mmol/L | [facility] | | | | | | DEPARTMENT | | | | | | OF | | | | | | PATHOLOGY | | + +---------+ + + + + + | Specimen | + + | Blood - Blood | + + + + + + + | Performing | Address | City/State/Zipcode | Phone Number | | Organization | | | | + + + + + | [facility] | [address] | [place] [address] | | | PATHOLOGY | [address] | | | + + + + + CBC ONLY (04/06/2012 2:18 AM PDT) + + + + + + | Component | Value | Ref Range | Performed | Pathologist | | | | | At | Signature | + + + + + + | WHITE CELL | 9.9 | 4.4 - 11.0 K/cu | [facility] | | | COUNT | | mm | DEPARTMENT | | | | | | OF | | | | | | PATHOLOGY | | + + + + + + | RED CELL | 4.14 (L) | 4.50 - 5.90 | [facility] | | | COUNT | | M/cu mm | DEPARTMENT | | | | | | OF | | | | | | PATHOLOGY | | + + + + + + | HEMOGLOBIN | 12.9 (L) | 13.5 - 17.5 | [facility] | | | | | g/dL | DEPARTMENT | | | | | | OF | | | | | | PATHOLOGY | | + + + + + + | HEMATOCRIT | 38.1 (L) | 41.0 - 53.0 % | [facility] | | | | | | DEPARTMENT | | | | | | OF | | | | | | PATHOLOGY | | + + + + + + | MCV | 92.0 | 80.0 - 96.0 fL | [facility] | | | | | | DEPARTMENT | | | | | | OF | | | | | | PATHOLOGY | | + + + + + + | MCHC | 33.8 | 33.4 - 35.5 | [facility] | | | | | g/dL | DEPARTMENT | | | | | | OF | | | | | | PATHOLOGY | | + + + + + + | RDW | 14.9 | 11.5 - 15.0 % | [facility] | | | | | | DEPARTMENT | | | | | | OF | | | | | | PATHOLOGY | | + + + + + + | PLATELET | 149 (L) | 150 - 400 K/cu | [facility] | | | COUNT | | mm | DEPARTMENT | | | | | | OF | | | | | | PATHOLOGY | | + + + + + + + + | Specimen | + + | Blood - Blood | + + + + + + + | Performing | Address | City/State/Zipcode | Phone Number | | Organization | | | | + + + + + | [facility] | [address] | [place] [address] | | | PATHOLOGY | [address] | | | + + + + + TROPONIN I, PLASMA (04/06/2012 2:18 AM PDT) + +-------+ + + + | Component | Value | Ref Range | Performed | Pathologist | | | | | At | Signature | + +-------+ + + + | TROPONIN I | 0.06 | <0.50 ng/mL | [facility] | | | | | | DEPARTMENT | | | | | | OF | | | | | | PATHOLOGY | | + +-------+ + + + + + | Specimen | + + | Blood - Blood | + + + + + + + | Performing | Address | City/State/Zipcode | Phone Number | | Organization | | | | + + + + + | [facility] | [address] | [place] [address] | | | PATHOLOGY | [address] | | | + + + + + CAPILLARY BLOOD GLUCOSE, POC (04/05/2012 10:11 PM PDT) + +---------+ + + + | Component | Value | Ref Range | Performed | Pathologist | | | | | At | Signature | + +---------+ + + + | BLOOD | 133 (H) | 60 - 99 mg/dL | [facility] - | | | GLUCOSE, | | | [facility] | | | POC | | | [place] [place] | | | | | | OF CARE | | | | | | TESTS | | + +---------+ + + + + + | Specimen | + + | | + + + + + + + | Performing | Address | City/State/Zipcode | Phone Number | | Organization | | | | + + + + + | [facility] | [address] | [place], [place] | | | [facility] | [facility] | [address] | | | TESTS | | | | + + + + + 12 LEAD ECG (04/05/2012 8:52 PM PDT) + + + + + + | Component | Value | Ref Range | Performed | Pathologist | | | | | At | Signature | + + + + + + | VENTRICULAR | 42 | BPM | [facility] | | | RATE | | | OF | | | | | | CARDIOLOGY | | + + + + + + | ATRIAL RATE | 42 | BPM | [facility] | | | | | | OF | | | | | | CARDIOLOGY | | + + + + + + | P-R | 166 | ms | [facility] | | | INTERVAL | | | OF | | | | | | CARDIOLOGY | | + + + + + + | QRS | 112 | ms | [facility] | | | DURATION | | | OF | | | | | | CARDIOLOGY | | + + + + + + | QT | 562 | ms | [facility] | | | | | | OF | | | | | | CARDIOLOGY | | + + + + + + | QTC | 469 | ms | [facility] | | | | | | OF | | | | | | CARDIOLOGY | | + + + + + + | P AXIS | 15 | degrees | [facility] | | | | | | OF | | | | | | CARDIOLOGY | | + + + + + + | R AXIS | -64 | degrees | [facility] | | | | | | OF | | | | | | CARDIOLOGY | | + + + + + + | T AXIS | 195 | degrees | [facility] | | | | | | OF | | | | | | CARDIOLOGY | | + + + + + + | EKG | Marked sinus | | [facility] | | | DIAGNOSIS | bradycardiaLeft anterior | | OF | | | | fascicular blockLeft | | CARDIOLOGY | | | | ventricular hypertrophy | | | | | | with repolarization | | | | | | abnormalityAbnormal | | | | | | ECG"I have personally | | | | | | interpreted this report, | | | | | | either alone or with a | | | | | | trainee."Confirmed by | | | | | | YANCY PEREZ ([id number]) on | | | | | | 04/07/2012 8:09:53 AM | | | | + + + + + + + + | Specimen | + + | | + + + + + | Narrative | Performed At | + + + | Please click | [facility] | | on view image for the detailed interpretation from Instamedia results. | CARDIOLOGY | + + + + + + + + | Performing | Address | City/State/Zipcode | Phone Number | | Organization | | | | + + + + + | [facility] | [address] | [place], [place] | | | CARDIOLOGY | [address] | [address] | | + + + + + TROPONIN I, PLASMA (04/05/2012 8:50 PM PDT) + +-------+ + + + | Component | Value | Ref Range | Performed | Pathologist | | | | | At | Signature | + +-------+ + + + | TROPONIN I | 0.06 | <0.50 ng/mL | [facility] | | | | | | DEPARTMENT | | | | | | OF | | | | | | PATHOLOGY | | + +-------+ + + + + + | Specimen | + + | Blood - Blood | + + + + + + + | Performing | Address | City/State/Zipcode | Phone Number | | Organization | | | | + + + + + | [facility] | [address] | [place] [address] | | | PATHOLOGY | [address] | | | + + + + + CKMB,SERUM (04/05/2012 8:50 PM PDT) + + + + + + | Component | Value | Ref Range | Performed | Pathologist | | | | | At | Signature | + + + + + + | CKMB | 2.0Comment: Performed by | <5.1 ug/L | [facility] | | | | [employer], | | REG UN[facility] | | | | | | P[facility] - [facility] | | | | [address] | | | | | | [facility] | | | | | | [address] | | | | | | | | | | | | [email or web address], | | | | | | Janine Vaughan MD - | | | | | | Lab. Director | | | | + + + + + + + + | Specimen | + + | Blood - Blood | + + + + + + + | Performing | Address | City/State/Zipcode | Phone Number | | Organization | | | | + + + + + | [facility] | [address] | [place], [place] | | | UNIV P[facility] | | [address] | | + + + + + CK, PLASMA (04/05/2012 8:50 PM PDT) + +--------+ + + + | Component | Value | Ref Range | Performed | Pathologist | | | | | At | Signature | + +--------+ + + + | CK | 43 (L) | 49 - 397 U/L | [facility] | | | | | | DEPARTMENT | | | | | | OF | | | | | | PATHOLOGY | | + +--------+ + + + + + | Specimen | + + | Blood - Blood | + + + + + + + | Performing | Address | City/State/Zipcode | Phone Number | | Organization | | | | + + + + + | [facility] | [address] | [place] [address] | | | PATHOLOGY | [address] | | | + + + + + CAPILLARY BLOOD GLUCOSE, POC (04/05/2012 8:19 PM PDT) + +-------+ + + + | Component | Value | Ref Range | Performed | Pathologist | | | | | At | Signature | + +-------+ + + + | BLOOD | 90 | 60 - 99 mg/dL | [facility] - | | | GLUCOSE, | | | [facility] | | | POC | | | [facility] | | | | | | OF CARE | | | | | | TESTS | | + +-------+ + + + + + | Specimen | + + | | + + + + + + + | Performing | Address | City/State/Zipcode | Phone Number | | Organization | | | | + + + + + | [facility] | [address] | [place], [place] | | | [facility] | [address] | [address] | | | TESTS | | | | + + + + + CBC ONLY (04/05/2012 4:42 PM PDT) + + + + + + | Component | Value | Ref Range | Performed | Pathologist | | | | | At | Signature | + + + + + + | WHITE CELL | 7.3 | 4.4 - 11.0 K/cu | [facility] | | | COUNT | | mm | DEPARTMENT | | | | | | OF | | | | | | PATHOLOGY | | + + + + + + | RED CELL | 4.15 (L) | 4.50 - 5.90 | [facility] | | | COUNT | | M/cu mm | DEPARTMENT | | | | | | OF | | | | | | PATHOLOGY | | + + + + + + | HEMOGLOBIN | 13.0 (L) | 13.5 - 17.5 | [facility] | | | | | g/dL | DEPARTMENT | | | | | | OF | | | | | | PATHOLOGY | | + + + + + + | HEMATOCRIT | 38.0 (L) | 41.0 - 53.0 % | [facility] | | | | | | DEPARTMENT | | | | | | OF | | | | | | PATHOLOGY | | + + + + + + | MCV | 91.4 | 80.0 - 96.0 fL | [facility] | | | | | | DEPARTMENT | | | | | | OF | | | | | | PATHOLOGY | | + + + + + + | MCHC | 34.3 | 33.4 - 35.5 | [facility] | | | | | g/dL | DEPARTMENT | | | | | | OF | | | | | | PATHOLOGY | | + + + + + + | RDW | 14.6 | 11.5 - 15.0 % | [facility] | | | | | | DEPARTMENT | | | | | | OF | | | | | | PATHOLOGY | | + + + + + + | PLATELET | 148 (L) | 150 - 400 K/cu | [facility] | | | COUNT | | mm | DEPARTMENT | | | | | | OF | | | | | | PATHOLOGY | | + + + + + + + + | Specimen | + + | Blood - Blood | + + + + + + + | Performing | Address | City/State/Zipcode | Phone Number | | Organization | | | | + + + + + | [facility] | [address] | [place] [address] | | | PATHOLOGY | [address] | | | + + + + + TROPONIN I, PLASMA (04/05/2012 3:06 PM PDT) + +-------+ + + + | Component | Value | Ref Range | Performed | Pathologist | | | | | At | Signature | + +-------+ + + + | TROPONIN I | 0.06 | <0.50 ng/mL | [facility] | | | | | | DEPARTMENT | | | | | | OF | | | | | | PATHOLOGY | | + +-------+ + + + + + | Specimen | + + | Blood - Blood | + + + + + + + | Performing | Address | City/State/Zipcode | Phone Number | | Organization | | | | + + + + + | [facility] | [address] | [place] [address] | | | PATHOLOGY | [address] | | | + + + + + 12 LEAD ECG (04/05/2012 2:20 PM PDT) + + + + + + | Component | Value | Ref Range | Performed | Pathologist | | | | | At | Signature | + + + + + + | VENTRICULAR | 48 | BPM | [facility] | | | RATE | | | OF | | | | | | CARDIOLOGY | | + + + + + + | ATRIAL RATE | 48 | BPM | [facility] | | | | | | OF | | | | | | CARDIOLOGY | | + + + + + + | P-R | 186 | ms | [facility] | | | INTERVAL | | | OF | | | | | | CARDIOLOGY | | + + + + + + | QRS | 124 | ms | [facility] | | | DURATION | | | OF | | | | | | CARDIOLOGY | | + + + + + + | QT | 540 | ms | [facility] | | | | | | OF | | | | | | CARDIOLOGY | | + + + + + + | QTC | 482 | ms | [facility] | | | | | | OF | | | | | | CARDIOLOGY | | + + + + + + | P AXIS | -15 | degrees | [facility] | | | | | | OF | | | | | | CARDIOLOGY | | + + + + + + | R AXIS | -75 | degrees | [facility] | | | | | | OF | | | | | | CARDIOLOGY | | + + + + + + | T AXIS | 230 | degrees | [facility] | | | | | | OF | | | | | | CARDIOLOGY | | + + + + + + | EKG | Marked sinus | | [facility] | | | DIAGNOSIS | bradycardiaRight bundle | | OF | | | | branch blockLeft | | CARDIOLOGY | | | | anterior fascicular | | | | | | block Bifascicular | | | | | | block Marked T-wave | | | | | | abnormality, consider | | | | | | inferolateral | | | | | | ischemiaAbnormal ECG"I | | | | | | have personally | | | | | | interpreted this report, | | | | | | either alone or with a | | | | | | trainee."Confirmed by | | | | | | YANCY PEREZ ([id number]) on | | | | | | 04/06/2012 9:16:40 AM | | | | + + + + + + + + | Specimen | + + | | + + + + + | Narrative | Performed At | + + + | Please click | [facility] | | on view image for the detailed interpretation from [employer] results. | CARDIOLOGY | + + + + + + + + | Performing | Address | City/State/Zipcode | Phone Number | | Organization | | | | + + + + + | [facility] | [address] | [place], [place] | | | CARDIOLOGY | [address] | [address] | | + + + + + ARCH/CAROTID (04/05/2012 1:25 PM PDT) + + + + + + | Component | Value | Ref Range | Performed | Pathologist | | | | | At | Signature | + + + + + + | ARCH/CAROTI | DATE OF PROCEDURE: | | | | | D | 04/05/2012 DIAGNOSIS: | | | | | | Carotid stenosis | | | | | | OPERATION: R internal | | | | | | jugular vein central | | | | | | venous catheter; L | | | | | | ICAangioplasty and | | | | | | stenting PRIMARY | | | | | | SURGEON: Scotty Benítez | | | | | | PULP COOKER SURGEONS: | | | | | | Antwan Munoz MD | | | | | | ANESTHESIA: Conscious | | | | | | sedation DURATION OF | | | | | | PROCEDURE: 1.5 hours | | | | | | COMPLICATIONS: None | | | | | | apparent MATERIALS | | | | | | EMPLOYED: 19g needle; | | | | | | 035 francis wire; 035 | | | | | | glidewire; 6Fshort | | | | | | sheath 5F Phoenix | | | | | | catheter; Alec 4.0 x | | | | | | 40 mm balloon;Alec | | | | | | 5.5 x 20 mm balloon; | | | | | | Emboshield Ryan-6 7 mm | | | | | | distal protectiondevice; | | | | | | PRECISE 10 x 40 mm | | | | | | Stent; heparin; atropine | | | | | | VESSELS INJECTED: | | | | | | Aortic Arch; R CCA; L | | | | | | CCA; R common femoral | | | | | | VESSELS STUDIED: Aortic | | | | | | Arch, cervical views; R | | | | | | CCA, cervical views;R | | | | | | CCA, intracranial views; | | | | | | L CCA, cervical views; | | | | | | L CCA, | | | | | | intracranialviews; R | | | | | | common femoral | | | | | | CONSENT:The procedure | | | | | | was explained fully to | | | | | | the patient or the | | | | | | patient'ssurrogate, | | | | | | including the risks of | | | | | | stroke, vascular injury | | | | | | at accesssite in leg, | | | | | | renal failure from | | | | | | contrast, serious | | | | | | allergic reactionsfrom | | | | | | medications or contrast, | | | | | | incomplete study, | | | | | | benefits, | | | | | | andalternatives fully to | | | | | | the patient . All | | | | | | questions were answered | | | | | | indetail and the patient | | | | | | directed me to proceed. | | | | | | INDICATIONS: | | | | | | 71-year-old presenting | | | | | | with chest pain and | | | | | | found to havea non-ST | | | | | | segment elevation VT. | | | | | | His workup revealed no | | | | | | evidence forcoronary | | | | | | disease but critical | | | | | | aortic stenosis as well | | | | | | as occlusion ofthe right | | | | | | internal carotid artery | | | | | | and high-grade stenosis | | | | | | of theleft. The | | | | | | patient was referred for | | | | | | angioplasty and | | | | | | stenting of theleft | | | | | | internal carotid artery | | | | | | prior to aortic valve | | | | | | surgery. PROCEDURE:The | | | | | | patient was taken to the | | | | | | neuroangiography suite | | | | | | and the PAUSEperformed | | | | | | per routine with correct | | | | | | patient identification, | | | | | | plannedprocedure, | | | | | | allergies, pertinent | | | | | | renal function, history | | | | | | and physical.Prior to | | | | | | obtaining femoral | | | | | | access, a 7-Belizean | | | | | | triple lumen | | | | | | centralvenous catheter | | | | | | was placed under sterile | | | | | | conditions using | | | | | | ultrasoundguidance. | | | | | | The right internal | | | | | | jugular vein was | | | | | | visualized | | | | | | underultrasound | | | | | | guidance, and under | | | | | | continuous ultrasound | | | | | | guidance, a4-Belizean | | | | | | micropuncture needle was | | | | | | used to cannulate the | | | | | | vessel,allowing for the | | | | | | placement of a 4-Belizean | | | | | | dilator utilizing a | | | | | | 4-Frenchmicropuncture | | | | | | kit. Through the | | | | | | 4-Belizean dilator, a | | | | | | Bentson wire | | | | | | wasintroduced and is | | | | | | navigated into the | | | | | | inferior vena cava. | | | | | | Over theBentson wire, | | | | | | the central venous | | | | | | catheter was introduced. | | | | | | A biopatchwas placed, | | | | | | and the central venous | | | | | | catheter was sewn into | | | | | | place withtwo sutures | | | | | | and covered with a | | | | | | sterile Tegaderm | | | | | | dressing. Next, | | | | | | [id number] needle was | | | | | | introduced into the | | | | | | right common femoral | | | | | | arteryallowing for the | | | | | | placement of a Francis | | | | | | wire. Over the Francis | | | | | | wire, a6-Belizean short | | | | | | sheath was placed. | | | | | | Heparin was | | | | | | administered fortarget | | | | | | ACT greater than 250. | | | | | | Through the 6-Belizean | | | | | | short sheath, a5-Belizean | | | | | | pigtail catheter was | | | | | | introduced and was | | | | | | navigated over theaortic | | | | | | arch for aortic arch | | | | | | angiography. It was | | | | | | then exchanged overthe | | | | | | Bentson wire for a | | | | | | 5-Belizean Phoenix catheter. | | | | | | The 5F Phoenix | | | | | | wasnavigated into the | | | | | | right common carotid | | | | | | artery for angiography | | | | | | ofthis vessel. It was | | | | | | then navigated into the | | | | | | left common | | | | | | carotidartery for | | | | | | diagnostic angiography | | | | | | of this vessel. | | | | | | Through thediagnostic | | | | | | catheter, a 300 cm Storq | | | | | | exchange wire was | | | | | | placed in theleft | | | | | | external carotid artery. | | | | | | Over the Storq | | | | | | exchange wire, a6-Belizean | | | | | | flexor/6.5-Belizean TASHA | | | | | | one system was placed in | | | | | | the distalcommon | | | | | | carotid artery proximal | | | | | | to the stenosis. The | | | | | | exchange wireand TASHA one | | | | | | were removed and a | | | | | | Emboshield was deployed | | | | | | in the distalcervical | | | | | | internal carotid artery | | | | | | with the wire within the | | | | | | horizontalsegment of | | | | | | the Brian carotid. | | | | | | The stenosis was | | | | | | predilated with | | | | | | twoinflations of the 4.0 | | | | | | x 40 mm balloon. The | | | | | | stent was deployed | | | | | | acrossthe stenosis. | | | | | | Post dilation was | | | | | | performed with two | | | | | | inflations of the5.5 x | | | | | | 20 mm balloon. An | | | | | | angiogram was performed | | | | | | to rule out sludgingof | | | | | | embolic material within | | | | | | the distal protection | | | | | | device and thedistal | | | | | | protection device was | | | | | | retrieved. A control | | | | | | angiogram of thecervical | | | | | | and intracranial | | | | | | carotid artery | | | | | | circulations was | | | | | | performed.The guide | | | | | | catheter was then | | | | | | withdrawn into the right | | | | | | common femoralartery | | | | | | for angiography of this | | | | | | vessel. The | | | | | | arteriotomy was | | | | | | closedwith Starclose. I | | | | | | was present and | | | | | | participated in the | | | | | | entireprocedure as | | | | | | described above. | | | | | | FINDINGS:The spot film | | | | | | of the chest | | | | | | demonstrates accurate | | | | | | placement of thecentral | | | | | | venous catheter with the | | | | | | tip of the catheter | | | | | | within thesuperior vena | | | | | | cava. The right common | | | | | | carotid artery | | | | | | demonstrates occlusion | | | | | | of the rightinternal | | | | | | carotid artery at its | | | | | | origin. There is | | | | | | prominent retrogradeflow | | | | | | through a hypertrophied | | | | | | right ophthalmic artery | | | | | | which in turnfills the | | | | | | supraclinoid carotid | | | | | | distal to the ophthalmic | | | | | | and themiddle cerebral | | | | | | artery. The right common | | | | | | carotid arteriogram, | | | | | | intracranial | | | | | | views,demonstrates | | | | | | normal vascularity with | | | | | | no evidence for | | | | | | aneurysm,vascular | | | | | | malformation, or other | | | | | | abnormality. There is no | | | | | | evidence forvasospasm. | | | | | | The venous phase appears | | | | | | normal. The left common | | | | | | carotid artery, | | | | | | cervical views, prior to | | | | | | angioplastyand | | | | | | stenting, demonstrates | | | | | | 95% stenosis at the | | | | | | origin of the | | | | | | leftinternal carotid | | | | | | artery. This results | | | | | | in slow flow through the | | | | | | leftinternal carotid | | | | | | artery and poststenotic | | | | | | dilatation of the region | | | | | | ofthe carotid bulb is | | | | | | observed. The left | | | | | | common carotid | | | | | | arteriogram, | | | | | | intracranial views, | | | | | | demonstratesnormal | | | | | | vascularity with no | | | | | | evidence for aneurysm, | | | | | | vascularmalformation, or | | | | | | other abnormality. | | | | | | There is no evidence | | | | | | forvasospasm. The venous | | | | | | phase appears normal. A | | | | | | series of roadmap image | | | | | | and spot films document | | | | | | deployment of thedistal | | | | | | protection device | | | | | | within the distal | | | | | | cervical carotid | | | | | | artery.This further | | | | | | document to inflations | | | | | | of the pre-stent | | | | | | angioplastyballoon, | | | | | | deployment of the stent | | | | | | across the stenosis, and | | | | | | postdilation with two | | | | | | inflations of the 5.5 x | | | | | | 20 mm balloon. | | | | | | Theangiogram after | | | | | | post-stent angioplasty | | | | | | and prior to distal | | | | | | protectiondevice | | | | | | retrieval demonstrates | | | | | | no evidence for slowed | | | | | | flow through theinternal | | | | | | carotid artery system. | | | | | | Mild vasospasm | | | | | | associated with | | | | | | thedistal protection | | | | | | device is present. The | | | | | | control angiogram | | | | | | afterdistal protection | | | | | | device retrieval | | | | | | demonstrates a reduction | | | | | | in thedegree of | | | | | | stenosis from 95% to 0% | | | | | | with no evidence for | | | | | | distalembolization. | | | | | | There is substantially | | | | | | increased flow across | | | | | | theanterior | | | | | | communicating artery | | | | | | such that both the right | | | | | | anteriorcerebral artery | | | | | | and right middle | | | | | | cerebral artery | | | | | | territories now | | | | | | fillpredominantly from | | | | | | the left side. The the | | | | | | right common femoral | | | | | | arteriogram is normal | | | | | | with nosignificant | | | | | | atheromatous disease or | | | | | | dissection. IMPRESSION: | | | | | | 1. 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 2. 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 | | | | | | Successful placement | | | | | | of a right internal | | | | | | jugular central | | | | | | venouscatheter with the | | | | | | distal tip of the | | | | | | catheter located within | | | | | | thesuperior vena | | | | | | cava.The angiogram is | | | | | | otherwise within normal | | | | | | limitswith no other | | | | | | abnormalities noted. | | | | | | Attending Radiologists: | | | | | | Scotty Benítez | | | | | Ervin KempAuthor: Scotty | | | | | | Justo Benítez I have | | | | | | personally viewed this | | | | | | procedure/exam, reviewed | | | | | | this report,and made | | | | | | changes to it where | | | | | | appropriate. | | | | | | Final/Electronically | | | | | | prince / Scotty | | | | | | Gordy 04/05/2012 15:27 | | | | | | PM | | | | + + + + + + + + | Specimen | + + | | + + + +---------+ + + | Performing | Address | City/State/Zipcode | Phone Number | | Organization | | | | + +---------+ + + | [facility] DEPARTMENT OF | | | | | RADIOLOGY | | | | + +---------+ + + ACT, POC RESULT (04/05/2012 12:51 PM PDT) + +---------+ + + + | Component | Value | Ref Range | Performed | Pathologist | | | | | At | Signature | + +---------+ + + + | ACT, POC | 341 (A) | 90 - 150 | | | | | | Seconds | | | + +---------+ + + + ASPIRIN PLATELET INHIBITION, POC (04/05/2012 12:30 PM PDT) + +---------+ + + + | Component | Value | Ref Range | Performed | Pathologist | | | | | At | Signature | + +---------+ + + + | PLATELET | 405 (A) | 550 - 700 ARU | | | | RESPONSE- | | | | | | ASPIRIN | | | | | + +---------+ + + + + + | Specimen | + + | Urine | + + P2Y12 INHIBITION, POC (04/05/2012 12:30 PM PDT) + + + + + + | Component | Value | Ref Range | Performed | Pathologist | | | | | At | Signature | + + + + + + | P2Y12 | 211Comment: Dr Benítez | 194 - 418 PRU | | | | REACTION | informed | | | | | UNITS | | | | | + + + + + + | BASE | 223 | 194 - 418 PRU | | | | PLATELET | | | | | | REACTION | | | | | | UNITS | | | | | + + + + + + | % P2Y12 | 5Comment: dr benítez | | | | | INHIBITION | informed | | | | + + + + + + + + | Specimen | + + | Urine | + + ACT, POC RESULT (04/05/2012 12:27 PM PDT) + +---------+ + + + | Component | Value | Ref Range | Performed | Pathologist | | | | | At | Signature | + +---------+ + + + | ACT, POC | 184 (A) | 90 - 150 | | | | | | Seconds | | | + +---------+ + + + ANESTHESIA/SEDATION (04/05/2012 12:00 AM PDT) + + + | Narrative | Performed At | + + + | | | + + + + + | Transcriptions | + + | Other, Faculty - 04/11/2012 10:12 PM PDT | + + POTASSIUM, PLASMA (04/04/2012 9:36 PM PDT) + +-------+ + + + | Component | Value | Ref Range | Performed | Pathologist | | | | | At | Signature | + +-------+ + + + | POTASSIUM, | 4.2 | 3.4 - 5.0 | [facility] | | | PLASMA | | mmol/L | DEPARTMENT | | | (LAB) | | | OF | | | | | | PATHOLOGY | | + +-------+ + + + + + | Specimen | + + | | + + + + + + + | Performing | Address | City/State/Zipcode | Phone Number | | Organization | | | | + + + + + | [facility] DEPARTMENT | [address] | [place] [address] | | | PATHOLOGY | [address] | | | + + + + + 12 LEAD ECG (04/04/2012 7:56 PM PDT) + + + + + + | Component | Value | Ref Range | Performed | Pathologist | | | | | At | Signature | + + + + + + | VENTRICULAR | 57 | BPM | [facility] | | | RATE | | | OF | | | | | | CARDIOLOGY | | + + + + + + | ATRIAL RATE | 57 | BPM | [facility] | | | | | | OF | | | | | | CARDIOLOGY | | + + + + + + | P-R | 154 | ms | [facility] | | | INTERVAL | | | OF | | | | | | CARDIOLOGY | | + + + + + + | QRS | 126 | ms | [facility] | | | DURATION | | | OF | | | | | | CARDIOLOGY | | + + + + + + | QT | 434 | ms | [facility] | | | | | | OF | | | | | | CARDIOLOGY | | + + + + + + | QTC | 422 | ms | [facility] | | | | | | OF | | | | | | CARDIOLOGY | | + + + + + + | P AXIS | 41 | degrees | [facility] | | | | | | OF | | | | | | CARDIOLOGY | | + + + + + + | R AXIS | -80 | degrees | [facility] | | | | | | OF | | | | | | CARDIOLOGY | | + + + + + + | T AXIS | 121 | degrees | [facility] | | | | | | OF | | | | | | CARDIOLOGY | | + + + + + + | EKG | Sinus | | [facility] | | | DIAGNOSIS | bradycardiaNon-specific | | OF | | | | intra-ventricular | | CARDIOLOGY | | | | conduction blockT wave | | | | | | abnormality, consider | | | | | | lateral ischemiaAbnormal | | | | | | ECGConfirmed by | | | | | | DAHIANA COHEN | | | | | | ([id number]) on 04/05/2012 | | | | | | 5:23:58 PM | | | | + + + + + + + + | Specimen | + + | | + + + + + | Narrative | Performed At | + + + | Please click | [facility] | | on view image for the detailed interpretation from [employer] results. | CARDIOLOGY | + + + + + + + + | Performing | Address | City/State/Zipcode | Phone Number | | Organization | | | | + + + + + | [facility] | [address] | [place], [place] | | | CARDIOLOGY | [address] | [id number] | | + + + + + HEMOGLOBIN A1C, BLOOD (04/04/2012 7:39 PM PDT) + +---------+ + + + | Component | Value | Ref Range | Performed | Pathologist | | | | | At | Signature | + +---------+ + + + | HEMOGLOBIN | 6.1 (H) | <5.7 % | [facility] | | | A1C | | | [facility]ION[facility] | | | | | | LABORATORY | | + +---------+ + + + + + | Specimen | + + | Blood - Blood | + + + + + | Narrative | Performed At | + + + | HbA1c Interpretive Information If you are screening for | [facility] | | diabetes: <5.7 Non-diabetic 5.7-6.4 | REG[facility]AL | | Prediabetes >6.4 Diabetes, if confirmed For | LABORATORY | | monitoring of diabetes control: <7.0 Usual goal of | | | treatment; low risk for complications 7.0-8.0 Some | | | increased risk for long-term complications >8.0 | | | Higher risk of complications; strongly consider | | | intensifying therapy [facility] ([facility]) | | | [facility] [address] | | | [place] [address] | | + + + + + + + + | Performing | Address | City/State/Zipcode | Phone Number | | Organization | | | | + + + + + | [facility] | [address] | [place] [address] | | | LABORATORY | | | | + + + + + LIPID SET (TRIG, T CHOL, HDL, CALC LDL) (04/04/2012 7:39 PM PDT) + + + + + + | Component | Value | Ref Range | Performed | Pathologist | | | | | At | Signature | + + + + + + | CHOLESTEROL | 122Comment: | <200 mg/dL | [facility] | | | (LAB) | Cholesterol Reference | | DEPARTMENT | | | | Range: | | OF | | | | Desirable: <200 | | PATHOLOGY | | | | Borderline | | | | | | High: 200 - 239 | | | | | | | | | | | | High: >=240 | | | | | | LDL Cholesterol | | | | | | Reference Range: | | | | | | | | | | | | Optimal: <100 | | | | | | Near Optimal: | | | | | | 100 - 129 | | | | | | Borderline High: | | | | | | 130 - 159 | | | | | | High: | | | | | | 160 - 189 | | | | | | Very High: | | | | | | >=190 | | | | + + + + + + | TRIGLYCERID | 77Comment: | <150 mg/dL | [facility] | | | ES | Triglyceride Reference | | DEPARTMENT | | | | Range: | | OF | | | | Normal: <150 | | PATHOLOGY | | | | Borderline | | | | | | High: 150 - 199 | | | | | | | | | | | | High: 200 - 499 | | | | | | | | | | | | Very High: >=500 | | | | + + + + + + | HDL | 34 (L)Comment: | >40 mg/dL | [facility] | | | CHOLESTEROL | HDL Reference Range: | | DEPARTMENT | | | | High | | OF | | | | Risk: <40 | | PATHOLOGY | | | | Desirable: | | | | | | >=60 | | | | + + + + + + | LDL | 73 | <100 mg/dL | [facility] | | | CHOLESTEROL | | | DEPARTMENT | | | , | | | OF | | | CALCULATED | | | PATHOLOGY | | + + + + + + | VLDL | 15 | <31 mg/dL | [facility] | | | CHOLESTEROL | | | DEPARTMENT | | | , | | | OF | | | CALCULATED | | | PATHOLOGY | | + + + + + + | NON-HDL | 88Comment: non-HDL | <130 mg/dL | [facility] | | | CHOLESTEROL | Cholesterol Reference | | DEPARTMENT | | | | Range: | | OF | | | | Optimal: <130 | | PATHOLOGY | | | | Near | | | | | | Optimal: 130-159 | | | | | | Borderline | | | | | | High: 160-189 | | | | | | | | | | | | High: 190-209 | | | | | | Very | | | | | | High: >=210 | | | | + + + + + + + + | Specimen | + + | Blood - Blood | + + + + + | Narrative | Performed At | + + + | POTASSIUM AND Sample hemolyzed. Results for K, Total Bili., Direct | [facility] | | Bili., AST, LD,or HDL may be inaccurate. Refer to comment under test | DEPARTMENT OF | | result. Phoned TO ISABELA MONTGOMERY AT 7NSI. Readback. | PATHOLOGY | + + + + + + + + | Performing | Address | City/State/Zipcode | Phone Number | | Organization | | | | + + + + + | [facility] | [address] | [place] [address] | | | PATHOLOGY | [address] | | | + + + + + TROPONIN I, PLASMA (04/04/2012 7:39 PM PDT) + +-------+ + + + | Component | Value | Ref Range | Performed | Pathologist | | | | | At | Signature | + +-------+ + + + | TROPONIN I | 0.11 | <0.50 ng/mL | [facility] | | | | | | DEPARTMENT | | | | | | OF | | | | | | PATHOLOGY | | + +-------+ + + + + + | Specimen | + + | Blood - Blood | + + + + + + + | Performing | Address | City/State/Zipcode | Phone Number | | Organization | | | | + + + + + | [facility] DEPARTMENT OF | [address] | [place] [address] | | | PATHOLOGY | [address] | | | + + + + + INR (04/04/2012 7:39 PM PDT) + + + + + + | Component | Value | Ref Range | Performed | Pathologist | | | | | At | Signature | + + + + + + | INR | 0.99Comment: | 0.90 - 1.20 INR | [facility] | | | | INR Therapeutic ranges | | DEPARTMENT | | | | for full | | OF | | | | anticoagulation: | | PATHOLOGY | | | | INR for Venous | | | | | | Thromboembolism | | | | | | (2.0-3.0) | | | | | | INR INR for most | | | | | | patients with mech. | | | | | | valves (2.5-3.5) | | | | | | INR | | | | + + + + + + + + | Specimen | + + | Blood - Blood | + + + + + + + | Performing | Address | City/State/Zipcode | Phone Number | | Organization | | | | + + + + + | [facility] | [address] | [place] [address] | | | PATHOLOGY | [address] | | | + + + + + APTT (ACT. PART. THROMBO TIME) (04/04/2012 7:39 PM PDT) + + + + + + | Component | Value | Ref Range | Performed | Pathologist | | | | | At | Signature | + + + + + + | APTT | 28.6Comment: | 26.0 - 36.0 | [facility] | | | | APTT Therapeutic Range | seconds | DEPARTMENT | | | | | | OF | | | | (75-120) | | PATHOLOGY | | | | sec | | | | | | Heparin levels of | | | | | | 0.35-0.7 U/mL | | | | + + + + + + + + | Specimen | + + | Blood - Blood | + + + + + + + | Performing | Address | City/State/Zipcode | Phone Number | | Organization | | | | + + + + + | [facility] DEPARTMENT OF | [address] | [place] [address] | | | PATHOLOGY | [address] | | | + + + + + CBC ONLY (04/04/2012 7:39 PM PDT) + + + + + + | Component | Value | Ref Range | Performed | Pathologist | | | | | At | Signature | + + + + + + | WHITE CELL | 8.8 | 4.4 - 11.0 K/cu | [facility] | | | COUNT | | mm | DEPARTMENT | | | | | | OF | | | | | | PATHOLOGY | | + + + + + + | RED CELL | 5.22 | 4.50 - 5.90 | [facility] | | | COUNT | | M/cu mm | DEPARTMENT | | | | | | OF | | | | | | PATHOLOGY | | + + + + + + | HEMOGLOBIN | 16.1 | 13.5 - 17.5 | [facility] | | | | | g/dL | DEPARTMENT | | | | | | OF | | | | | | PATHOLOGY | | + + + + + + | HEMATOCRIT | 48.0 | 41.0 - 53.0 % | [facility] | | | | | | DEPARTMENT | | | | | | OF | | | | | | PATHOLOGY | | + + + + + + | MCV | 91.9 | 80.0 - 96.0 fL | [facility] | | | | | | DEPARTMENT | | | | | | OF | | | | | | PATHOLOGY | | + + + + + + | MCHC | 33.6 | 33.4 - 35.5 | [facility] | | | | | g/dL | DEPARTMENT | | | | | | OF | | | | | | PATHOLOGY | | + + + + + + | RDW | 15.1 (H) | 11.5 - 15.0 % | [facility] | | | | | | DEPARTMENT | | | | | | OF | | | | | | PATHOLOGY | | + + + + + + | PLATELET | 165 | 150 - 400 K/cu | [facility] | | | COUNT | | mm | DEPARTMENT | | | | | | OF | | | | | | PATHOLOGY | | + + + + + + + + | Specimen | + + | Blood - Blood | + + + + + + + | Performing | Address | City/State/Zipcode | Phone Number | | Organization | | | | + + + + + | [facility] DEPARTMENT OF | [address] | [place] [address] | | | PATHOLOGY | [address] | | | + + + + + MAGNESIUM, PLASMA (04/04/2012 7:39 PM PDT) + +-------+ + + + | Component | Value | Ref Range | Performed | Pathologist | | | | | At | Signature | + +-------+ + + + | MAGNESIUM,P | 2.5 | 1.8 - 2.5 mg/dL | [facility] | | | LASMA | | | DEPARTMENT | | | | | | OF | | | | | | PATHOLOGY | | + +-------+ + + + + + | Specimen | + + | Blood - Blood | + + + + + | Narrative | Performed At | + + + | POTASSIUM AND Sample hemolyzed. Results for K, Total Bili., Direct | [facility] | | Bili., AST, LD,or HDL may be inaccurate. Refer to comment under test | DEPARTMENT OF | | result. Phoned TO ISABELA MONTGOMERY AT 7NSI. Readback. | PATHOLOGY | + + + + + + + + | Performing | Address | City/State/Zipcode | Phone Number | | Organization | | | | + + + + + | [facility] DEPARTMENT OF | [address] | [place] [address] | | | PATHOLOGY | [address] | | | + + + + + COMPLETE METABOLIC SET (NA,K,CL,CO2,BUN,CREAT,GLUC,CA,AST,ALT,BILI TOTAL,ALK PHOS,ALB,PROT TOTAL) (04/04/2012 7:39 PM PDT) + +---------+ + + + | Component | Value | Ref Range | Performed | Pathologist | | | | | At | Signature | + +---------+ + + + | GLUCOSE, | 100 (H) | 60 - 99 mg/dL | [facility] | | | PLASMA | | | DEPARTMENT | | | (LAB) | | | OF | | | | | | PATHOLOGY | | + +---------+ + + + | BUN, PLASMA | 22 (H) | 6 - 20 mg/dL | [facility] | | | (LAB) | | | DEPARTMENT | | | | | | OF | | | | | | PATHOLOGY | | + +---------+ + + + | CREATININE | 0.89 | 0.70 - 1.30 | [facility] | | | PLASMA | | mg/dL | DEPARTMENT | | | (LAB) | | | OF | | | | | | PATHOLOGY | | + +---------+ + + + | ALBUMIN, | 4.0 | 3.5 - 4.7 g/dL | [facility] | | | PLASMA | | | DEPARTMENT | | | (LAB) | | | OF | | | | | | PATHOLOGY | | + +---------+ + + + | CALCIUM, | 8.9 | 8.6 - 10.2 | [facility] | | | PLASMA | | mg/dL | DEPARTMENT | | | (LAB) | | | OF | | | | | | PATHOLOGY | | + +---------+ + + + | BILIRUBIN | 2.2 (H) | 0.3 - 1.2 mg/dL | [facility] | | | TOTAL | | | DEPARTMENT | | | | | | OF | | | | | | PATHOLOGY | | + +---------+ + + + | ALK PHOS | 50 (L) | 56 - 119 U/L | [facility] | | | | | | DEPARTMENT | | | | | | OF | | | | | | PATHOLOGY | | + +---------+ + + + | SODIUM, | 136 | 134 - 143 | [facility] | | | PLASMA | | mmol/L | DEPARTMENT | | | (LAB) | | | OF | | | | | | PATHOLOGY | | + +---------+ + + + | CHLORIDE, | 106 | 97 - 108 mmol/L | [facility] | | | PLASMA | | | DEPARTMENT | | | (LAB) | | | OF | | | | | | PATHOLOGY | | + +---------+ + + + | TOTAL CO2, | 26 | 22 - 29 mmol/L | [facility] | | | PLASMA | | | DEPARTMENT | | | (LAB) | | | OF | | | | | | PATHOLOGY | | + +---------+ + + + | ALT (SGPT) | 15 | 13 - 48 U/L | [facility] | | | | | | DEPARTMENT | | | | | | OF | | | | | | PATHOLOGY | | + +---------+ + + + | ANION GAP | 4 | 4 - 11 mmol/L | [facility] | | | | | | DEPARTMENT | | | | | | OF | | | | | | PATHOLOGY | | + +---------+ + + + | ANION | 4 | 4 - 11 mmol/L | [facility] | | | GAP(ALB | | | DEPARTMENT | | | CORRECTED) | | | OF | | | | | | PATHOLOGY | | + +---------+ + + + | TOTAL | 6.3 | 6.1 - 7.9 g/dL | [facility] | | | PROTEIN, | | | DEPARTMENT | | | PLASMA | | | OF | | | (LAB) | | | PATHOLOGY | | + +---------+ + + + | AST(SGOT) | 79 (H) | 15 - 41 U/L | [facility] | | | | | | DEPARTMENT | | | | | | OF | | | | | | PATHOLOGY | | + +---------+ + + + | POTASSIUM, | 8.4 (*) | 3.4 - 5.0 | [facility] | | | PLASMA | | mmol/L | DEPARTMENT | | | (LAB) | | | OF | | | | | | PATHOLOGY | | + +---------+ + + + + + | Specimen | + + | Blood - Blood | + + + + + | Narrative | Performed At | + + + | POTASSIUM AND Sample hemolyzed. Results for K, Total Bili., Direct | [facility] | | Bili., AST, LD,or HDL may be inaccurate. Refer to comment under test | DEPARTMENT OF | | result. Phoned TO ISABELA MONTGOMERY AT 7NSI. Readback. | PATHOLOGY | + + + + + + + + | Performing | Address | City/State/Zipcode | Phone Number | | Organization | | | | + + + + + | [facility] | [address] | [place] [address] | | | PATHOLOGY | [address] | | | + + + + + TYPE AND SCREEN (04/04/2012 7:39 PM PDT) + + + + + + | Component | Value | Ref Range | Performed | Pathologist | | | | | At | Signature | + + + + + + | ABO GROUP | O | | [facility] | | | | | | DEPARTMENT | | | | | | OF | | | | | | PATHOLOGY | | + + + + + + | RH TYPE | Positive | | [facility] | | | | | | DEPARTMENT | | | | | | OF | | | | | | PATHOLOGY | | + + + + + + | Antibody | Negative | | [facility] | | | Screen | | | DEPARTMENT | | | | | | OF | | | | | | PATHOLOGY | | + + + + + + + + | Specimen | + + | Blood - Blood | + + + + + + + | Performing | Address | City/State/Zipcode | Phone Number | | Organization | | | | + + + + + | [facility] | [address] | [place] [address] | | | PATHOLOGY | [address] | | | + + + + + documented in this encounter Visit Diagnoses + + | Diagnosis | + + | Carotid stenosis - Primary Occlusion and stenosis of carotid artery without mention | | of cerebral infarction | + + | CAD (coronary artery disease) Coronary atherosclerosis of unspecified type of vessel, | | [place] or graft | + + | NSTEMI (non-ST elevated myocardial infarction) (HCC) Acute myocardial infarction, | | subendocardial infarction, episode of care unspecified | + + | Aortic stenosis Aortic valve disorders | + + documented in this encounter Administered Medications + +--------+ +--------+------+------+ | Medication Order | MAR | Action | Dose | Rate | Site | | | Action | Date | | | | + +--------+ +--------+------+------+ | acetaminophen (aka TYLENOL) | Given | 04/06/20 | 650 mg | | | | tablet 650 mg 650 mg, oral, | | 12 8:23 | | | | | EVERY 4 HOURS NEEDED, Starting | | PM PDT | | | | | [facility] 04/04/12 at 1930, Until Mon | | | | | | | 04/08/12 at 2101, mild pain, fever | | | | | | + +--------+ +--------+------+------+ +-------+ +--------+---+---+ | Given | 04/06/20 | 650 mg | | | | | 12 4:22 | | | | | | AM PDT | | | | +-------+ +--------+---+---+ | Given | 04/05/20 | 650 mg | | | | | 12 8:23 | | | | | | PM PDT | | | | +-------+ +--------+---+---+ +---+---+ | | | +---+---+ + +-------+ +--------+---+---+ | aspirin tablet 325 mg 325 mg, | Given | 04/04/20 | 325 mg | | | | oral, ONCE, 1 dose, [facility] 04/04/12 at | | 12 8:41 | | | | | 1930 | | PM PDT | | | | + +-------+ +--------+---+---+ +---+---+ | | | +---+---+ + +-------+ +--------+---+---+ | aspirin tablet 325 mg 325 mg, | Given | 04/08/20 | 325 mg | | | | oral, DAILY, First dose on Sun | | 12 9:00 | | | | | 04/05/12 at 1045, Until | | AM PDT | | | | | Discontinued | | | | | | + +-------+ +--------+---+---+ +-------+ +--------+---+---+ | Given | 04/07/20 | 325 mg | | | | | 12 8:13 | | | | | | AM PDT | | | | +-------+ +--------+---+---+ | Given | 04/06/20 | 325 mg | | | | | 12 9:25 | | | | | | AM PDT | | | | +-------+ +--------+---+---+ +---+---+ | | | +---+---+ + +-------+ +--------+---+---+ | Clopidogrel (aka PLAVIX) tablet | Given | 04/04/20 | 600 mg | | | | 600 mg 600 mg, oral, ONCE, 1 | | 12 9:22 | | | | | dose, [facility] 04/04/12 at 1930 | | PM PDT | | | | + +-------+ +--------+---+---+ +---+---+ | | | +---+---+ + +-------+ +-------+---+---+ | clopidogrel (aka PLAVIX) tablet | Given | 04/08/20 | 75 mg | | | | 75 mg 75 mg, oral, DAILY, First | | 12 9:00 | | | | | dose on Sun04/05/12 at 0900, | | AM PDT | | | | | Until Discontinued | | | | | | + +-------+ +-------+---+---+ +-------+ +-------+---+---+ | Given | 04/07/20 | 75 mg | | | | | 12 8:11 | | | | | | AM PDT | | | | +-------+ +-------+---+---+ | Given | 04/06/20 | 75 mg | | | | | 12 9:22 | | | | | | AM PDT | | | | +-------+ +-------+---+---+ +---+---+ | | | +---+---+ + +-------+ +--------+---+---+ | heparin injection 5,000 Units | Given | 04/08/20 | 5,000 | | | | 5,000 Units, subcutaneous, EVERY | | 12 9:00 | Units | | | | 8 HOURS, First dose on Sun04/05/12 | | AM PDT | | | | | at 0000, Until Discontinued | | | | | | + +-------+ +--------+---+---+ +-------+ +--------+---+---+ | Given | 04/08/20 | 5,000 | | | | | 12 12:41 | Units | | | | | AM PDT | | | | +-------+ +--------+---+---+ | Given | 04/07/20 | 5,000 | | | | | 12 5:25 | Units | | | | | PM PDT | | | | +-------+ +--------+---+---+ +---+---+ | | | +---+---+ + +-------+ +--------+---+---------+ | iohexol (aka OMNIPAQUE) | Given | 04/05/20 | 150 mL | | Right | | injection 150 mL 150 mL, | | 12 1:15 | | | Femoral | | intra-arterial, PROCEDURE ONCE, 1 | | PM PDT | | | | | dose, 04/05/12 at 1230 | | | | | | + +-------+ +--------+---+---------+ +---+---+ | | | +---+---+ + +-------+ +---------+---+---+ | menthol-phenol (aka CEPASTAT) | Given | 04/06/20 | 14.5 mg | | | | 14.5 mg 14.5 mg (1 lozenge), | | 12 1:37 | | | | | oral, NEEDED, Starting Fri | | PM PDT | | | | | 04/05/12 at 2217, Until 04/08/12 | | | | | | | at 2101, sore throat | | | | | | + +-------+ +---------+---+---+ +-------+ +---------+---+---+ | Given | 04/06/20 | 14.5 mg | | | | | 12 4:22 | | | | | | AM PDT | | | | +-------+ +---------+---+---+ | Given | 04/06/20 | 14.5 mg | | | | | 12 12:25 | | | | | | AM PDT | | | | +-------+ +---------+---+---+ +---+---+ | | | +---+---+ + +---------+ + +--------+---+ | NaCl 0.9 % IV bolus 1,000 mL | New Bag | 04/05/20 | 1,000 mL | mL/hr | | | 1,000 mL, intravenous, ONCE, 1 | | 12 9:23 | | | | | Joelle starr 04/05/12 at 2200 | | PM PDT | | | | + +---------+ + +--------+---+ +---+---+ | | | +---+---+ + +---------+ + +--------+---+ | NaCl 0.9 % IV bolus 500 mL 500 | New Bag | 04/08/20 | 1,000 mL | mL/hr | | | mL, intravenous, ONCE, 1 dose, | | 12 8:00 | | | | | 04/08/12 at 0830 | | AM PDT | | | | + +---------+ + +--------+---+ +---+---+ | | | +---+---+ + + + + + +---+ | NaCl 0.9 % IV 75 mL/hr, | Rate/Dos | 04/05/20 | 75 mL/hr | 75 mL/hr | | | intravenous, CONTINUOUS, Starting | e Change | 12 4:57 | | | | | 04/05/12 at 1215, Until Sat | | PM PDT | | | | | 04/06/12 at 1619 | | | | | | + + + + + +---+ +---+---+ | | | +---+---+ + + + +---+ +---+ | NaCl 0.9%-KCl 20 mEq/L IV | Rate/Dos | 04/04/20 | | 75 mL/hr | | | infusion intravenous, | e Change | 12 10:00 | | | | | CONTINUOUS, Starting [place] 04/04/12 | | PM PDT | | | | | at 1930, Until 04/05/12 at 1736 | | | | | | + + + +---+ +---+ +---------+ + +--------+---+ | New Bag | 04/04/20 | 1,000 mL | mL/hr | | | | 12 9:27 | | | | | | PM PDT | | | | +---------+ + +--------+---+ +---+---+ | | | +---+---+ + + + +---+ +---+ | NaCl 0.9%-KCl 20 mEq/L IV | Rate/Dos | 04/06/20 | | 10 mL/hr | | | infusion intravenous, | e Change | 12 4:00 | | | | | CONTINUOUS, Starting 04/05/12 | | PM PDT | | | | | at 1745, Until 04/06/12 at | | | | | | | 1619, at 1-100 mL/hr | | | | | | + + + +---+ +---+ +---------+ +---+ +---+ | New Bag | 04/06/20 | | 75 mL/hr | | | | 12 9:36 | | | | | | AM PDT | | | | +---------+ +---+ +---+ | New Bag | 04/05/20 | | 75 mL/hr | | | | 12 6:34 | | | | | | PM PDT | | | | +---------+ +---+ +---+ +---+---+ | | | +---+---+ + + + + +-------+---+ | norepinephrine in NaCl 0.9% IV | Restarte | 04/06/20 | 0.01 | 1.56 | | | infusion 8 mg/250 mL (0.032 | d | 12 11:22 | mcg/kg/m | mL/hr | | | mg/mL) 0.02-2 mcg/kg/min | | PM PDT | in | | | | 83 kg (rounded to 3.11-311.25 | | | | | | | mL/hr), intravenous, CONTINUOUS, | | | | | | | Starting Sun04/05/12 at 2215, | | | | | | | Until 04/07/12 at 0841 | | | | | | + + + + +-------+---+ + + + +-------+---+ | Rate/Dose Change | 04/06/20 | 0.01 | 1.56 | | | | 12 8:00 | mcg/kg/m | mL/hr | | | | PM PDT | in | | | + + + +-------+---+ | Rate/Dose Change | 04/06/20 | 0.01 | 1.56 | | | | 12 6:44 | mcg/kg/m | mL/hr | | | | PM PDT | in | | | + + + +-------+---+ + +---+ | | | + +---+ | norepinephrine IV infusion 1 | | | dose, Starting Sun04/05/12 at | | | 2135, Until Sun04/05/12 at 2141 | | + +---+ | | | + +---+ + + + + +-------+---+ | phenylePHrine in NaCl 0.9% IV | Rate/Dos | 04/05/20 | 0.05 | 1.25 | | | infusion 50 mg/250 mL (0.2 mg/mL) | e Change | 12 9:44 | mcg/kg/m | mL/hr | | | 0.02-0.5 mcg/kg/min | | PM PDT | in | | | | 83 kg (rounded to 0.5-12.45 | | | | | | | mL/hr), intravenous, CONTINUOUS, | | | | | | | Starting Sun04/05/12 at 1500, | | | | | | | Until 04/06/12 at 0831 | | | | | | + + + + +-------+---+ + + + +-------+---+ | Rate/Dose Change | 04/05/20 | 0.1 | 2.49 | | | | 12 9:43 | mcg/kg/m | mL/hr | | | | PM PDT | in | | | + + + +-------+---+ | Rate/Dose Change | 04/05/20 | 0.2 | 4.98 | | | | 12 5:10 | mcg/kg/m | mL/hr | | | | PM PDT | in | | | + + + +-------+---+ +---+---+ | | | +---+---+ + +-------+ +-------+---+---+ | simvastatin (aka ZOCOR) tablet | Given | 04/07/20 | 20 mg | | | | 20 mg 20 mg, oral, EVERY | | 12 9:20 | | | | | EVENING, First dose on Sun04/04/12 | | PM PDT | | | | | at 2100, Until Discontinued | | | | | | + +-------+ +-------+---+---+ +-------+ +-------+---+---+ | Given | 04/06/20 | 20 mg | | | | | 12 8:23 | | | | | | PM PDT | | | | +-------+ +-------+---+---+ | Given | 04/05/20 | 20 mg | | | | | 12 8:23 | | | | | | PM PDT | | | | +-------+ +-------+---+---+ +---+---+ | | | +---+---+ + +-------+ +--------+---+---+ | tamsulosin (aka FLOMAX) capsule | Given | 04/07/20 | 0.4 mg | | | | 0.4 mg 0.4 mg, oral, AT | | 12 9:21 | | | | | BEDTIME, First dose on Sun04/04/12 | | PM PDT | | | | | at 2200, Until Discontinued | | | | | | + +-------+ +--------+---+---+ +-------+ +--------+---+---+ | Given | 08/04/20 | 0.4 mg | | | | | 12 8:23 | | | | | | PM PDT | | | | +-------+ +--------+---+---+ | Given | 04/05/20 | 0.4 mg | | | | | 12 8:23 | | | | | | PM PDT | | | | +-------+ +--------+---+---+ +---+---+ | | | +---+---+ documented in this encounter
--- OUTSIDE RECORDS SUMMARY | ~2020-04-21 | XMS | Clinical Summary ---
Demographics + + + | Address | [address] | | | [place] [address] | + + + | Home Phone | | + + + | Preferred Language | Unknown | + + + | Marital Status | | + + + | Mandaeism Affiliation | PRO | + + + [...] + | Allyssa Chávez | ECON | [address] | | | | | [place] | | | | | [address] | | + + + + + Care Team Providers + +------+ + | Care Vp Ad Sales West Name | Role | Phone | + +------+ + | No Pcp Per Patient | PCP | Unavailable | + +------+ + Source Comments ABDELRAHMAN is fully live on both [facility] Ambulatory and [facility] InPatient.[facility] Allergies + + + + + + [...] | [facility] | xxxxxxxxx | Effect | [phone] | [address] | Agency | | ADMINISTRATION | NS | | maura | [phone] | [phone] | | | | ADMINI | | for | | [place], | | | | STRATI | | all | | [place] [address] | | | | ON | | dates | | | | + +--------+ +--------+ + +--------+ | [address] [facility] | RAIL | xxxxxxxxxx | 09/03/19 | [phone] | [address] | Med[address] | | | ROAD | | 07-Pre | 0 | [address] | re | | | MEDICA | | sent | | [place] | | | | RE | | | | [address] | | + +--------+ +--------+ + +--------+ + +--------+ +--------+ + + | Guarantor Name | Accoun | Relation to | Date | Phone | Billing Address | | | t Type | Patient | of | | | | | | | | | | + +--------+ +--------+ + + | Navdeep Chávez | Person | Self | [birth year] | [phone] | | | al/Fam | | 1941 | [phone] | [place] [address] | | | cinthya | | | 1 (Home) | | + +--------+ +--------+ + + | Navdeep Chávez | [place] | Self | [birth year] | | [phone] | | | Sponso | | 1941 | [phone] | [place] [address] | | | red | | | [...]
--- OUTSIDE RECORDS SUMMARY | ~2020-04-21 | XMS | Encounter Summary ---
Demographics + + + | Address | [address] | | | [place] [address] | + + + | Home Phone | | + + + | Preferred Language | Unknown | + + + | Marital Status | | + + + | Latter-Day Affiliation | Unknown | + + + | Race | White | + + + | Ethnic Group | Not or | + + + Author + + + | Author | [facility] | | | and [place] | + + + | Organization | [facility] | | | and [...] Team Providers + +------+ + | Care Specialist Wound Care Name | Role | Phone | + +------+ + | Harley Caro MD | PCP | | + +------+ + Reason for Referral Diagnostic/Screening (Routine) +--------+--------+ + + + + | Status | Reason | Specialty | Diagnoses / | Referred By | Referred To | | | | | Procedures | Contact | Contact | +--------+--------+ + + + + | Closed | | Radiology | Diagnoses | Chuy, | | | | | | Occlusion | Pal Velazquez, | | | | | | of right | [address] | | | | | | carotid | [address] | | | | | | artery | [address] [address] | | | | | | History of | [place], [place] | | | | | | left common | [address] | | | | | | carotid | Phone: | | | | | | artery stent | [phone] | | | | | | placement | Fax: | | | | | | Procedures | [phone] | | | | | | VAS Carotid | | | | | | | Duplex | | | | | | | Bilateral | | | +--------+--------+ + + + + Diagnostic/Screening (Routine) + +--------+ + + + + | Status | Reason | Specialty | Diagnoses / | Referred By | Referred To | | | | | Procedures | Contact | Contact | + +--------+ + + + + | Authorized | | | Diagnoses | [facility] | [facility] | | | | | S/P aortic | Pal Velazquez, [facility] | | | | | valve | [address] | | | | | replacement | [address] | [address] [place] | | | | | with | [address] | [place] | | | | | bioprostheti | [place], [place] | [address] | | | | | c valve | [address] | Phone: | | | | | Chronic | Phone: | [phone] | | | | | combined | [phone] | Fax: | | | | | systolic | Fax: | [phone] | | | | | (congestive) | [phone] | | | | | | and | | | | | | | diastolic | | | | | | | (congestive) | | | | | | | heart | | | | | | | failure | | | | | | | (HCC) | | | | | | | Procedures | | | | | | | ECHO | | | | | | | Complete | | | + +--------+ + + + + Encounter Details +--------+ + + + + | Date | Type | Department | Care Team | Description | +--------+ + + + + | 01/26/ | Orders Only | [facility] | Pal Vera, | S/P aortic valve | | 2019 | | CARDIOLOGY [place] | [address] | replacement with | | | | [address] | [place], | bioprosthetic valve | | | | [address] | [place] [address] | (Primary Dx); | | | | [place] | [phone] | Chronic combined | | | | [address] | | systolic | | | | [phone] | | (congestive) and | | | | | | diastolic | | | | | | (congestive) heart | | | | | | failure (HCC); | | | | | | Occlusion of right | | | | | | carotid artery; | | | | | | History of left | | | | | | common carotid | | | | | | artery stent | | | | | | placement | +--------+ + + + + Social History + +-------+ +--------+------+ | Tobacco Use | Types | Packs/Day | Years | Date | | | | | Used | | + +-------+ +--------+------+ | Former Smoker | | 1 | | | + +-------+ +--------+------+ + +---+---+---+ | Smokeless Tobacco: | | | | | Never Used | | | | + +---+---+---+ + + + | Sex Assigned at | Date Recorded | | | | + + + | Not on file | | + + + documented as of this encounter Plan of Treatment +--------+---------+ + + + | Date | Type | Specialty | Care Team | Description | +--------+---------+ + + + | 04/27/ | Office | Cardiology | Pal Vera, | | | 2019 | Visit | | MD [address] | | | | | | [place], | | | | | | [place] [address] | | | | | | [phone] | | | | | | | | +--------+---------+ + + + + + +--------+ + + | Name | Type | Priori | Associated Diagnoses | Order Schedule | | | | ty | | | + + +--------+ + + | ECHO Complete | Echocardiog | Routin | S/P aortic valve | Expected: | | | franco | e | replacement with | 02/03/2020, Expires: | | | | | bioprosthetic valve | 01/26/2021 | | | | | Chronic combined | | | | | | systolic | | | | | | (congestive) and | | | | | | diastolic | | | | | | (congestive) heart | | | | | | failure (HCC) | | + + +--------+ + + | VAS Carotid Duplex | Imaging | Routin | Occlusion of right | Expected: | | Bilateral | | e | carotid artery | 02/03/2020, Expires: | | | | | History of left | 01/26/2021 | | | | | common carotid | | | | | | artery stent | | | | | | placement | | + + +--------+ + + documented as of this encounter Visit Diagnoses + + | Diagnosis | + + | S/P aortic valve replacement with bioprosthetic valve - Primary Heart valve replaced | | by other means | + + | Chronic combined systolic (congestive) and diastolic (congestive) heart failure (HCC) | + + | 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
--- OUTSIDE RECORDS SUMMARY | ~2020-04-21 | XMS | Encounter Summary ---
Demographics + + + | Address | [address] | | | [place] [address] | + + + | Home Phone | | + + + | Preferred Language | Unknown | + + + | Marital Status | | + + + | Denominational Affiliation | Unknown | + + + | Race | White | + + + | Ethnic Group | Not or | + + + Author + + + | Author | [facility] | | | and [place] | + + + | Organization | [facility] | | | and [...] Team Providers + +------+ + | Care Pile Driving Technician Name | Role | Phone | + +------+ + | Harley Caro MD | PCP | | + +------+ + Encounter Details +--------+ + + + + | Date | Type | Department | Care Team | Description | +--------+ + + + + | 01/09/ | Orders Only | [facility] | Conversion | | | 2017 | | CONVERSION DEP [address] | Transaction, | | | | | [address] | Provider Unknown | | | | | [place] | [phone] | | | | | [address] | | | | | | [phone] | | | +--------+ + + + + Social History + +-------+ +--------+------+ | Tobacco Use | Types | Packs/Day | Years | Date | | | | | Used | | + +-------+ +--------+------+ | Never Assessed | | | | | + +-------+ +--------+------+ + [...] | | | | | | [place] [address] | | | | | | [phone] | | | | | | | | +--------+---------+ + + + documented as of this encounter Visit Diagnoses Not on filedocumented in this encounter"
--- OUTSIDE RECORDS SUMMARY | ~2020-04-21 | XMS | Encounter Summary ---
Demographics + + + | Address | [address] | | | [place] [address] | + + + | Home Phone | | + + + | Preferred Language | Unknown | + + + | Marital Status | | + + + | Buddhism Affiliation | Unknown | + + + | Race | White | + + + | Ethnic Group | Not or | + + + Author + + + | Author | [facility] | | | and [place] | + + + | Organization | [facility] | | | [...] Team Providers + +------+ + | Care Organ Pipe Maker Metal Name | Role | Phone | + +------+ + | Harley Caro MD | PCP | | + +------+ + Encounter Details +--------+ + + + + | Date | Type | Department | Care Team | Description | +--------+ + + + + | 04/15/ | Orders Only | [facility] | Conversion | | | 2018 | | CONVERSION [address]P [address] | Transaction, | | | | | [address] | Provider Unknown | | | | | [place] | [phone] | | | | | [address] | | | | | | [phone] | | | +--------+ + + + [...] | | | | | | [place] [address] | | | | | | [phone] | | | | | | | | +--------+---------+ + + + documented as of this encounter Visit Diagnoses Not on filedocumented in this encounter"
--- OUTSIDE RECORDS SUMMARY | ~2020-04-21 | XMS | Encounter Summary ---
Demographics + + + | Address | [address] | | | [place] [address] | + + + | Home Phone | | + + + | Preferred Language | Unknown | + + + | Marital Status | | + + + | Spiritism Affiliation | PRO | + + + | Race | White | + + + | Ethnic Group | Not or | + + + Author + + + | Author | [facility] | + + + | Organization | [facility] | + + + | Address | Unknown | + + + | Phone | Unavailable | + + + Support + + + + + | Name | Relationship | Address | Phone | + + + + + | Allyssa Chávez | ECON | [address] | | | | | [place] | | | | | [address] | | + + + + + Care Team Providers + +------+ + | Care Ham Smoker Name | Role | Phone | + +------+ + | No Pcp Per Patient | PCP | Unavailable | + +------+ + Encounter Details +--------+ + + + + | Date | Type | Department | Care Team | Description | +--------+ + + + + | 04/05/ | Anesthesia | [facility] [address] [address] | Feliciano Zamarripa, | | | 2011 | Event | [address] | [address] | | | | | [place] [id number] | [address] | | | | | [facility], | [place], [place] | | | | | [place] [address] | [address] | | | | | [phone] | [phone] | | | | | | | | | | | | Malini Henderson, | | | | | | CHILDCARE PROVIDER [address] [facility] | | | | | | [address] | | | | | | [place], [place] | | | | | | [address] | | | | | | [phone] | | | | | | | | +--------+ + + + + Anesthesia Record + + + + + | Procedure Name | Responsible | Anesthesia Start | Anesthesia Stop Time | | | Anesthesiologist | Time | | + + + + + | IR BODY IP/DP | Feliciano Zamarripa MD | | | | PROCEDURE | | | | + + + + + +----+---+-------+---------+ | Da | T | Event | Comment | | te | i | | | | | m | | | | | e | | | +----+---+-------+---------+ | 08 | 0 | | | | /0 | 9 | | | | 3/ | 1 | | | | 20 | 4 | | | | 12 | | | | +----+---+-------+---------+ +------+ | Meds | +------+ + + + No medications | on file. | + + + + + | No agents on file. | + + + + | No blood administrations on file. | + + + + | No LDAs on file. | + + documented in this encounter Social History + +-------+ +--------+------+ | Tobacco [...] as of this encounter Plan of Treatment Not on filedocumented as of this encounter Visit Diagnoses Not on filedocumented in this encounter"
--- OUTSIDE RECORDS SUMMARY | ~2020-04-21 | XMS | Encounter Summary ---
Demographics + + + | Address | [address] | | | [place] [address] | + + + | Home Phone | | + + + | Preferred Language | Unknown | + + + | Marital Status | | + + + | Islam Affiliation | Unknown | + + + | Race | White | + + + | Ethnic Group | Not or | + + + Author + + + | Author | [facility] | | | and [place] | + + + | Organization | [facility] | | | and [...] Team Providers + +------+ + | Care Top Stitcher Name | Role | Phone | + +------+ + | Harley Caro MD | PCP | | + +------+ + Encounter Details +--------+ + + + + | Date | Type | Department | Care Team | Description | +--------+ + + + + | 10/26/ | Orders Only | [facility] | J[facility] | | | 2017 | | [address]VERSION [address] | [address] | | | | | [address] | [address] | | | | | [place] | [place] [address] | | | | | [address] | [phone] | | | | | [phone] | | | +--------+ + + + [...] [place], | | | | | | [place] [address] | | | | | | [phone] | | | | | | | | +--------+---------+ + + + documented as of this encounter Procedures + +--------+ + + + | Procedure Name | Priori | Date/Time | Associated Diagnosis | Comments | | | ty | | | | + +--------+ + + + | ECHO INTERPRETATION | Routin | 10/26/2017 | | Results for this | | OF OUTSIDE FILMS | e | 7:22 AM | | procedure are in the | | | | PST | | results section. | + +--------+ + + + documented in this encounter Results ECHO Interpretation of Outside Films (10/26/2017 7:22 AM PST) + + | Specimen | + + | | + + + + + | Impressions | Performed At | + + + | 1. The left ventricle is normal in size and systolic function EF | | | 55-60%. 2. The right ventricle is normal in size and function. 3. | | | Normally functioning #25 Magna tissue bioprosthetic valve, acceptable | | | mean gradient of 11 mmHg. 4. There is no pericardial effusion. | | + + + + + + | Narrative | Performed At | + + + | Patient Name: Navdeep Chávez Date of : 1940 | | | Performing Physician: Reese Benedict | | | | | | ------REPORT ADDENDED------ INDICATIONS #25 Magna | | | tissue AVR, CAD CONCLUSIONS 1. The left ventricle is | | | normal in size and systolic function EF 55-60%. 2. The right | | | ventricle is normal in size and function. 3. Normally functioning #25 | | | Magna tissue bioprosthetic valve, acceptable mean gradient of 11 | | | mmHg. 4. There is no pericardial effusion. FINDINGS -------- | | | ECG rhythm: Sinus rhythm with irregular beats. Study: A 2-dimensional | | | transthoracic echocardiogram with m-mode, spectral and color flow | | | Doppler was perfomed. Study: This was a technically adequate study. | | | Left Ventricle: Overall left ventricular systolic function is normal | | | with, an EF between 55 - 60 %. Left Ventricle: The left ventricle | | | cavity size is normal. Left Ventricle: There is moderate concentric | | | left ventricular hypertrophy. Left Ventricle: There is | | | paradoxical/dysynergic septal motion consistent with post-operative | | | status. Right Ventricle: The right ventricle is normal in size and | | | function. Left Atrium: The left atrial size is normal. Right Atrium: | | | The right atrium is normal in size. Aortic Valve: The maximum | | | pressure gradient across the aortic valve is 21.67mmHg. Aortic Valve: | | | Peak/mean gradient across the valve is 21.67mmHg/10.54mmHg. Aortic | | | Valve: Normally functioning #25 Magna tissue bioprosthetic valve. | | | Mitral Valve: The mitral valve is normal. Mitral Valve: There is | | | trace mitral regurgitation. Tricuspid Valve: The tricuspid valve | | | appears structurally normal. Tricuspid Valve: Trace tricuspid | | | regurgitation present. Tricuspid Valve: There is no evidence of | | | pulmonary hypertension. Tricuspid Valve: The right ventricular | | | systolic pressure (pulmonary artery systolic pressure), as measured by | | | Doppler, is 25.28mmHg. Pulmonic Valve: The pulmonic valve is normal. | | | Pulmonic Valve: Trace pulmonic regurgitation. Pericardium: There | | | is no pericardial effusion. Pericardium: No pleural effusion seen. | | | IVC/Hepatic Veins: The IVC is small (<1.5cm) and collapses with sniff, | | | consistent with central venous pressures of 0-5mmHg. 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 MEASUREMENTS | | | Ao asc: 4.07 cm Ao Diam: 3.87 cm Ao sinus: | | | 3.[address] junct: 3.44 cm IVC: 1.34 cm LA Diam: 3.78 cm | | | EDV(Teich): 72.68 ml IVSd: 1.63 cm LVIDd: 4.06 cm LVPWd: | | | 1.58 cm LVOT Area: 4.84 cm2 LVOT Diam: 2.48 cm %FS: | | | 31.99 % EF(Teich): 60.63 % ESV(Teich): 28.61 ml LVIDs: | | | 2.76 cm SV(Teich): 44.07 ml RV Major: 6.75 cm RVIDd: 2.98 | | | cm LVEF MOD A2C: 65.32 % SV MOD A2C: 36.66 ml LVEF MOD A4C: | | | 56.83 % SV MOD A4C: 41.88 ml EF Biplane: 61.86 % LVEDV MOD | | | BP: 65.24 ml LVESV MOD BP: 24.88 ml LVEDV MOD A2C: 56.12 | | | ml LVLd A2C: 7.41 cm LVEDV MOD A4C: 73.69 ml LVLd A4C: | | | 7.81 cm LVESV MOD A2C: 19.46 ml LVLs A2C: 6.46 cm LVESV MOD | | | A4C: 31.80 ml LVLs A4C: 6.66 cm LAESV(A-L): 38.52 ml LAESV | | | Index (A-L): 18.08 ml/m2 LAAs A2C: 12.13 cm2 LAESV A-L A2C: | | | 25.25 ml LALs A2C: 4.94 cm LAAs A4C: 18.50 cm2 LAESV A-L | | | A4C: 55.51 ml LALs A4C: 5.23 cm RAAs: 15.76 cm2 RAESV A-L: | | | 40.45 ml RAESV MOD: 40.26 ml RALs: 5.21 cm AV maxPG: | | | 21.66 mmHg AV meanP.54 mmHg AV Vmax: 2.32 m/s AV Vmean: | | | 1.47 m/s AV VTI: 38.51 cm SHAY Vmax: 2.46 cm2 SHAY (VTI): | | | 2.27 cm2 AVAI Vmax: 0.00 cm2/m2 AVAI (VTI): 0.00 cm2/m2 LVOT | | | maxP.60 mmHg LVOT meanP.69 mmHg LVSI Dopp: 41.14 | | | ml/m2 LVSV Dopp: 87.63 ml LVOT Vmax: 1.18 m/s LVOT Vmean: | | | 0.74 m/s LVOT VTI: 18.09 cm MV A Rom: 0.74 m/s MV DecT: | | | 221.68 ms MV E Rom: 0.57 m/s MV E/A Ratio: 0.77 MV PHT: | | | 64.28 ms MVA By PHT: 3.42 cm2 Septal e': 0.05 m/s Septal | | | E/e': 10.99 Lateral e': 0.09 m/s Lateral E/e': 5.84 RAP: | | | 5 mmHg RVSP: 25.27 mmHg TR maxP.27 mmHg TR Vmax: | | | 2.25 m/s Rn Cardiovascular: Authenticated by: Reese Benedict Report | | | Date/Time: 11-01-2017 15:29:51 | | + + + + --------+ | Procedure Note | + --------+ | Mk Bains - 04/24/2019 4:20 PM PDT Patient Name: Neil Chávez of | | : 1940 Performing Physician: Reese | | [facility] ------REPORT | | ADDENDED------INDICATIONS #25 Magna tissue AVR, CAD CONCLUSIONS 1. | | The left ventricle is normal in size and systolic function EF 55-60%.2. The right | | ventricle is normal in size and function.3. Normally functioning #25 Magna tissue | | bioprosthetic valve, acceptable mean gradient of 11 mmHg.4. There is no pericardial | | effusion. FINDINGS--------ECG rhythm: Sinus rhythm with irregular beats.Study: A | | 2-dimensional transthoracic echocardiogram with m-mode, spectral and color flow Doppler | | was perfomed.Study: This was a technically adequate study.Left Ventricle: Overall left | | ventricular systolic function is normal with, an EF between 55 - 60 %.Left Ventricle: | | The left ventricle cavity size is normal.Left Ventricle: There is moderate concentric | | left ventricular hypertrophy.Left Ventricle: There is paradoxical/dysynergic septal | | motion consistent with post-operative status.Right Ventricle: The right ventricle is | | normal in size and function.Left Atrium: The left atrial size is normal.Right Atrium: | | The right atrium is normal in size.Aortic Valve: The maximum pressure gradient across | | the aortic valve is 21.67mmHg.Aortic Valve: Peak/mean gradient across the valve is | | 21.67mmHg/10.54mmHg.Aortic Valve: Normally functioning #25 Magna tissue bioprosthetic | | valve.Mitral Valve: The mitral valve is normal.Mitral Valve: There is trace mitral | | regurgitation.Tricuspid Valve: The tricuspid valve appears structurally normal.Tricuspid | | Valve: Trace tricuspid regurgitation present.Tricuspid Valve: There is no evidence of | | pulmonary hypertension.Tricuspid Valve: The right ventricular systolic pressure | | (pulmonary artery systolic pressure), as measured by Doppler, is 25.28mmHg.Pulmonic | | Valve: The pulmonic valve is normal.Pulmonic Valve: Trace pulmonic | | regurgitation.Pericardium: There is no pericardial effusion.Pericardium: No pleural | | effusion seen.IVC/Hepatic Veins: The IVC is small (<1.5cm) and collapses with sniff, | | consistent with central venous pressures of 0-5mmHg.Aorta: The ascending aorta is | | dilated measuring up to 4.1cm. MEASUREMENTS Ao asc: 4.07 cmAo Diam: 3.87 | | cmAo sinus: 3.[address] junct: 3.44 cmIVC: 1.34 cmLA Diam: 3.78 cmEDV(Teich): | | 72.68 mlIVSd: 1.63 cmLVIDd: 4.06 cmLVPWd: 1.58 cmLVOT Area: 4.84 [id number] Diam: | | 2.48 cm%FS: 31.99 %EF(Teich): 60.63 %ESV(Teich): 28.61 mlLVIDs: 2.76 | | cmSV(Teich): 44.07 mlRV Major: 6.75 cmRVIDd: 2.98 cmLVEF MOD A2C: 65.32 %SV MOD | | A2C: 36.66 mlLVEF MOD A4C: 56.83 %SV MOD A4C: 41.88 mlEF Biplane: 61.86 %LVEDV | | MOD BP: 65.24 mlLVESV MOD BP: 24.88 mlLVEDV MOD A2C: 56.12 mlLVLd A2C: 7.41 | | cmLVEDV MOD A4C: 73.69 mlLVLd A4C: 7.81 cmLVESV MOD A2C: 19.46 mlLVLs A2C: 6.46 | | cmLVESV MOD A4C: 31.80 mlLVLs A4C: 6.66 cmLAESV(A-L): 38.52 mlLAESV Index (A-L): | | 18.08 ml/m2LAAs A2C: 12.13 [id number] A-L A2C: 25.25 mlLALs A2C: 4.94 cmLAAs A4C: | | 18.50 [id number] A-L A4C: 55.51 mlLALs A4C: 5.23 cmRAAs: 15.76 [id number] A-L: | | 40.45 mlRAESV MOD: 40.26 mlRALs: 5.21 cmAV maxP.66 mmHgAV meanP.54 | | mmHgAV Vmax: 2.32 m/Michel Vmean: 1.47 m/Michel VTI: 38.51 cmAVA Vmax: 2.46 cm2AVA | | (VTI): 2.27 [id number] Vmax: 0.00 cm2/m2AVAI (VTI): 0.00 cm2/m2LVOT maxP.60 | | mmHgLVOT meanP.69 mmHgLVSI Dopp: 41.14 ml/m2LVSV Dopp: 87.63 mlLVOT Vmax: | | 1.18 m/sLVOT Vmean: 0.74 m/sLVOT VTI: 18.09 cmMV A Rom: 0.74 m/sMV DecT: 221.68 | | msMV E Rom: 0.57 m/sMV E/A Ratio: 0.77MV PHT: 64.28 msMVA By PHT: 3.42 [id number] | | e': 0.05 m/sSeptal E/e': 10.99Lateral e': 0.09 m/sLateral E/e': 5.84RAP: 5 | | mmHgRVSP: 25.27 mmHgTR maxP.27 mmHgTR Vmax: 2.25 m/s | | Rn Cardiovascular:Authenticated by: Reese [facility] Date/Time: 11-01-2017 15:29:51 | | IMPRESSION: 1. The left ventricle is normal in size and systolic function EF 55-60%.2. | | The right ventricle is normal in size and function.3. Normally functioning #25 Magna | | tissue bioprosthetic valve, acceptable mean gradient of 11 mmHg.4. There is no | | pericardial effusion. | |Ao asc: 4.07 cm | |Ao Diam: 3.87 cm | |Ao sinus: 3.79 cm | |Ao st junct: 3.44 cm | |IVC: 1.34 cm | |LA Diam: 3.78 cm | |EDV(Teich): 72.68 ml | |IVSd: 1.63 cm | |LVIDd: 4.06 cm | |LVPWd: 1.58 cm | |LVOT Area: 4.84 cm2 | |LVOT Diam: 2.48 cm | |%FS: 31.99 % | |EF(Teich): 60.63 % | |ESV(Teich): 28.61 ml | |LVIDs: 2.76 cm | |SV(Teich): 44.07 ml | |RV Major: 6.75 cm | |RVIDd: 2.98 cm | |LVEF MOD A2C: 65.32 % | |SV MOD A2C: 36.66 ml | |LVEF MOD A4C: 56.83 % | |SV MOD A4C: 41.88 ml | |EF Biplane: 61.86 % | |LVEDV MOD BP: 65.24 ml | |LVESV MOD BP: 24.88 ml | |LVEDV MOD A2C: 56.12 ml | |LVLd A2C: 7.41 cm | |LVEDV MOD A4C: 73.69 ml | |LVLd A4C: 7.81 cm | |LVESV MOD A2C: 19.46 ml | |LVLs A2C: 6.46 cm | |LVESV MOD A4C: 31.80 ml | |LVLs A4C: 6.66 cm | |LAESV(A-L): 38.52 ml | |LAESV Index (A-L): 18.08 ml/m2 | |LAAs A2C: 12.13 cm2 | |LAESV A-L A2C: 25.25 ml | |LALs A2C: 4.94 cm | |LAAs A4C: 18.50 cm2 | |LAESV A-L A4C: 55.51 ml | |LALs A4C: 5.23 cm | |RAAs: 15.76 cm2 | |RAESV A-L: 40.45 ml | |RAESV MOD: 40.26 ml | |RALs: 5.21 cm | |AV maxP.66 mmHg | |AV meanP.54 mmHg | |AV Vmax: 2.32 m/s | |AV Vmean: 1.47 m/s | |AV VTI: 38.51 cm | |SHAY Vmax: 2.46 cm2 | |SHAY (VTI): 2.27 cm2 | |AVAI Vmax: 0.00 cm2/m2 | |AVAI (VTI): 0.00 cm2/m2 | |LVOT maxP.60 mmHg | |LVOT meanP.69 mmHg | |LVSI Dopp: 41.14 ml/m2 | |LVSV Dopp: 87.63 ml | |LVOT Vmax: 1.18 m/s | |LVOT Vmean: 0.74 m/s | |LVOT VTI: 18.09 cm | |MV A Rom: 0.74 m/s | |MV DecT: 221.68 ms | |MV E Rom: 0.57 m/s | |MV E/A Ratio: 0.77 | |MV PHT: 64.28 ms | |MVA By PHT: 3.42 cm2 | |Septal e': 0.05 m/s | |Septal E/e': 10.99 | |Lateral e': 0.09 m/s | |Lateral E/e': 5.84 | |RAP: 5 mmHg | |RVSP: 25.27 mmHg | |TR maxP.27 mmHg | |TR Vmax: 2.25 m/s | | | |Rn Cardiovascular: | |Authenticated by: Reese Benedict | |Report Date/Time: 11-01-2017 15:29:51 | | | |IMPRESSION: | |1. The left ventricle is normal in size and systolic function EF 55-60%. | |2. The right ventricle is normal in size and function. | |3. 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 | |4. There is no pericardial effusion. | + --------+ documented in this encounter Visit Diagnoses Not on filedocumented in this encounter"
--- OUTSIDE RECORDS SUMMARY | ~2020-04-21 | XMS | Encounter Summary ---
Demographics + + + | Address | [address] | | | [place] [address] | + + + | Home Phone | | + + + | Preferred Language | Unknown | + + + | Marital Status | | + + + | Latter-Day Affiliation | Unknown | + + + | Race | White | + + + | Ethnic Group | Not or | + + + Author + + + | Author | [facility] | | | and [place] | + + + | Organization | [facility] | | | [...] Team Providers + +------+ + | Care It Integration Architect Name | Role | Phone | + +------+ + | Harley Caro MD | PCP | | + +------+ + Encounter Details +--------+ + + + + | Date | Type | Department | Care Team | Description | +--------+ + + + + | 12/19/ | Orders Only | [facility] | Conversion | | | 2017 | | CONVERSION DEP [address] | Transaction, | | | | | [address]NY [address]OL[address] | Provider Unknown | | | | | [place] | [phone] | | | | | [address] | | | | | | [phone] | | | +--------+ + + + [...] | | | | | | [place] [address] | | | | | | [phone] | | | | | | | | +--------+---------+ + + + documented as of this encounter Visit Diagnoses Not on filedocumented in this encounter"
--- OUTSIDE RECORDS SUMMARY | ~2020-04-21 | XMS | Encounter Summary ---
Demographics + + + | Address | [address] | | | [place] [address] | + + + | Home Phone | | + + + | Preferred Language | Unknown | + + + | Marital Status | | + + + | Yarsani Affiliation | PRO | + + + | Race | White | + + + | Ethnic Group | Not or | + + + Author + + + | Author | [facility] | + + + | Organization | [facility] | + + + | Address | Unknown | + + + | Phone | Unavailable | + + + Support + + + + + | Name | Relationship | Address | Phone | + + + + + | Allyssa Chávez | ECON | [address] | | | | | [place] | | | | | [address] | | + + + + + Care Team Providers + +------+ + | Care School Patrol Name | Role | Phone | + [...] + + | 04/04/ | Hospital | [facility] [address] | Byron Trimble MD | | | 2011 - | Encounter | [address] | [address] | | | | | [id number] [facility] | [place], [place] | | | 04/08/ | | [place] [id number] | | | 2011 | | [place] [facility] | [phone] | | | | | [phone] | | | | | | | Mayco Cantu MD | | | | | | [address] | | | | | | [place], [place] | | | | | | [address] | | | | | | [phone] | | | | | | | [...] carotid, [place] to the Ed [place] the [place] complaining of light headedness and palpitations, he was soon found to have a S SONIA. Follow-up ECHO showed severe Ao stenosis, he had a cardiac cath which showed CAD but n o intervention was done. His stenosis was found after a bruit was noticed and follow up abebe tids were done, he was in [place] a day early as he was heading here for further evaluation of the stenosis. This is how he ended up in the ED here. Following the cath it was determin ed that he is a candidate for revascularization. Although due to the severe stenosis he was sent to [facility] for further evaluation and management of the [...] did not want to be transferred to [place] to undergo urgent repair of his aort ic stenosis. 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 During this admission, several attempts were made to expla in to the patient the urgency of having valvular repair surgery, and on day of discharge he agreed to have surgery not immediately, but "earlier than planned." - upon discharge, immediately go to [place] for dental eval and pre-op eval - [...] This should be addressed by PCP at [place] after aortic valve repair performed. #CAD, controlled, [...] drive himself home. Follow Up Appointments: PCP: [place] patient Other: Stroke clinic in 4-6 weeks Follow Up Tests: (Tests at [facility] must be entered into Epic) Follow up chem in 1 week Condition On Discharge: Stable, but needs urgent valvular repair Vital Signs at discharge as appropriate: BP: 105/52 mmHg (04/08/12 1154) Pulse: 55 (04/08/12 1154) Resp: 18 (04/08/12 1154) Weight: 83 kg (182 lb 15.7 oz) (04/05/12 0600) Discharge Patient To: [place], then home Does patient have a planned readmission: Yes- Date TBD (Chidi Hodges) at [place] Patient plans after discharge? Go to [place] for pre-op eval, then valve surgery Discharge Summary Completed?: Yes- Date 04/08/2012 Code Status? POLST completed? No Discharging Provider: KELTON SEPULVEDA MD Date Completed: 04/08/12 Time Completed: 1455 Discharging Attending: Byron Trimble MD Physician Signature: Kelton Sepulveda Neurology REsident Pager [phone] documented in this enco unter Discharge Instructions Instructions Jasmyne Gates - 04/08/2012Formatting of this note might be different fro m the original. Carotid Endarterectomy: Before Your Surgery What is a carotid endarterectomy? A carotid endarterectomy (say "kuh-RAW-tid qx-wcv-luu-REK-h-kenneth") is surgery to remove fa tty buildup [...] will and a durable power o f family law attorney for health care let your doctor [...] apply lotions, perfume s, deodorants, or nail kiswahili. Do NOT shave the surgical site yourself. [...] Endarterectomy: Before Your Surgery", log into your Buzzni ac count at [email or web address]. You can enter M666 in the payleven" search vik x. Not on Buzzni? Review the Buzzni section of your After Visit Summary for directions on ho w to sign up. [phone] [employer]. Care instructions adapted under license by [facility] & [facility]. This care instruction is for use with your licensed healthcar e professional. If you have questions about a medical condition or this instruction, always ask your healthcare professional. [employer] disclaims any warranty or liabili ty for your use of this information. Content Version: 9.3.96733; Last Revised: October 17, 2010 Carotid Stenosis: [...] Stenosis: After Your Visit", log into your Buzzni account at [email or web address]. You can enter Y756 in the [employer] Library" search box. Not on Buzzni? Review the AllPlayers.comhart section of your After Visit Summary for directions on anne bueno to sign up. [phone] [employer]. Care instructions adapted under license by [facility] & [employer] [place]. This care instruction is for use with your licensed healthcar e professional. If you have questions about a medical condition or this instruction, always ask your healthcare professional. [employer] disclaims any warranty or liabili ty for your use of this information. Content Version: 9.3.46187; Last Revised: July 03, 2011 Chest Pain [...] stay on the phone with the emergency teletray operator. He or she will give you further [...] (Angina): After Your Visit", log into your Buzzni account at [email or web address]. You can enter H129 in the payleven" search box. Not on Buzzni? Review the conXtt section of your After Visit Summary for directions on anne bueno to sign up. [phone] [employer]. Care instructions adapted under license by [facility] & [facility]. This care instruction is for use with your licensed healthcar e professional. If you have questions about a medical condition or this instruction, always ask your healthcare professional. [employer] disclaims any warranty or liabili ty for your use of this information. Content Version: 9.3.18470; Last Revised: June 15, 2010 Chest Pain [...] get you started. Follow-up care is a pittmna part of your treatment and safety. Be [...] stay on the phone with the emergency teletray operator. He or she will give you further [...] Visit", log into your MyChart account at [email or web address]. You can enter H129 in the [employer] Library" search box. Not on Buzzni? Review the AllPlayers.comhart section of your After Visit Summary for directions on anne bueno to sign up. [phone] [employer]. Care instructions adapted under license by [facility] & [facility]. This care instruction is for use with your licensed healthcar e professional. If you have questions about a medical condition or this instruction, always ask your healthcare professional. [employer] disclaims any warranty or liabili ty for your use of this information. Content Version: 9.3.76291; Last Revised: June 15, 2010 documented in [...] exam and care plan as per the house manager and have examined the patient myself. On [...] will schedule a follow-up for him at [facility] stroke clinic in about 1 month (will also be seeing cardiology for severe ). [facility] DEPARTMENT: [facility] STROKE [facility] - [id number] Place of Service: 94509 - IP CSN: [id number] Suggested Modifer: GC Resident Present Suggested Level of Service: 28191 - Subsequent, Exp Prob Foc/Mod Complex 25 [...] chest pain and repor aramis to the [place] where he was found to have a [...] to ischemic stroke, cerebral edema, seizure, hypotension, DC, cardiac arrest 1. Neuro -Cont. ASA/Plavix -PT/OT [...] an d discussion with treatment decision maker. [facility] DEPARTMENT: [id number] CRITICAL CARE Place of Service: Inpatient Date of Service: 04/07/2012 CSN: [id number] Suggested Level of Care: 00631 - SUBSEQUENT HOSPITAL CARE,LEVEL I Mayco Zuniga MD - 8:49 AM PDT STROKE I saw and evaluated patient. I reviewed note HO and concur. 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 04/01 for evaluation of the LICA stenosis, but develop an NSTEMI. [place] the [place] where TTE showed severe and mitral regurgita tion. He was transferred to [facility] for LICA stenting (which occurred 04/05) prior [...] [place] floor Home in AM F/U stroke [facility] Stroke education provided to patient including stroke warning signs, need to dial 911, risk factor reduction, stroke medications and F/U reviewed. 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 04/01 for evalua tion of the LICA stenosis, but develop an NSTEMI. [place] the [place] where TTE showe d severe and mitral regurgitation. He was transferred to [facility] for LICA stenting (which oc curred 04/05) [...] ff. - plans to come down to [place] to help get pt back to [place] - discussed with pt that he CANNOT [...] use, HLD who was admitted to the [facility] 04/01 for an NSTEMI, found to have [...] home. Plan: - transfer to [facility] -continue plavix 75mg daily x [...] needs to call Zuleima Hodges at the [place] tomorrow to set an arnold ointment to come back in for his aortic valve (information provided in follow up section of the discharge tab) PT/OT SL/Swallow Code: Full This patient was discussed in detail with Dr. Browne, attending stroke neurologist, wh o agrees with the above, including assessment and plan. Radha Meadows PGY2 Neurology Pager [phone] Sarbjit Hobbs NP - 04/07/2012 6:23 AM PDT [facility] Neuroscience ICU Progress Note Team Pager: [phone] Attendin Attending Sander And Buffer: Primary Service Attending: MD Mayco Gale MD [...] 04/07/12 0604/07/12 07 - 04/08/12 0659 Shift 0066-3351 5593-7913 3235-9610 Daily Total 3204-8626 7738-2987 3999-7494 Daily Total I N T A K E P.O. 330 420 750 I.V. 657.3 278.24 158.49 1094.03 Shift Total 987.3 698.24 158.49 1844.03 O U T P U T Urine 720 249 763 6479 Urine 720 095 955 1273 Other Stool 1 1 Shift Total 720 125 516 3530 NET 267.3 -61.76 -641.51 -435.97 Chemistries: Last [...] nervous system failure at t his time. [facility] DEPARTMENT: [id number] ICU NEURO Place of Service:- Inpatient Date of Service: 04/07/2012 CSN: [id number] Suggested Modifier: None Suggested CPT: TO WOOD CREW SUPERVISOR This patient has been staffed with Dr. [...] chest pain and repor [place]amis to the [place] where he was found to have a NSTEMI. Cath showed 3 vessel disease needing CABG . In order to undergo this needed surgery, doctors recommended patient have his JAYCEE stenosi s addressed first. Patient transferred from the [place] to have this done. As it turns [...] to ischemic stroke, cerebral edema, seizure, hypotension, DC, cardiac arrest 1. Neuro -Cont. ASA/Plavix -PT/OT [...] an d discussion with treatment decision maker. [facility] DEPARTMENT: [id number] CRITICAL CARE Place of Service: Inpatient Date of Service: 04/06/2012 CSN: [id number] Suggested Level of Care: 09226 - CRITICAL CARE, 1ST HOUR EACH DAY Shelby Addison MD - 04/06/2012 12:41 PM PDT04/06/2012 12:42 PM Spoke with patient's , Allyssa. She states that Navdeep is frightened and "traumatized " after this last procedure and he has told her that he has no desire to stay in the [facility] for his aortic valve repair. He would like to go home to recuperate for 6 weeks. She sta juan he came to this decision on his own and that her involvement was only supportive. Discussed the case with Dr. Pavon of [facility] and Dr. Cisneros of [place] [facility]. Apparently, Mr. Chávez has known about his severe for some time and has been advised on more than one occasion by Dr. Berry ([place] [facility]) that he needs to have urgent valve replacement. He has refused this surgery in the past, clearly informed and of his ow n volition. Dr. Pavon and Dr. Cisneros feel that he should not transfer back to the [place] unless he commits to having the surgery [...] DM, tobacco use, HLD who presented to [facility] 04/01 for evaluation of the LICA stenosis, but develop an NSTEMI. He was admitted to the [place] where TTE showed severe and mitral regurgita tion. He was transferred to [facility] for LICA stenting (which occurred 04/05) prior to aortic valv e replacement. A) S/P LCAS- Doing well. Likely d/c home in AM EPIC DEPARTMENT: [facility] - [id number] Place of Service: - CSN: [id number] Suggested Modifer: GC Resident Present Suggested Level of Service: 57140 - Subsequent, Exp Prob Foc/Mod Complex 25 min Suggested Diagnosis: 433.10 - Stenosis, Carotid Artery Shelby Addison MD - 12/2011 10:10 AM PDT Stroke Service: Inpatient Progress Note 04/06/2012 10:10 AM ID: 71yo M with a history of cerebrovascular disease, multiple vascular risk factors and se aniket requiring surgical intervention who was transferred from the [facility] for management of a symptomatic severe L ICA stenosis with high risk features. SULLY stent to [facility] yesterday. Interval Hx: Bradycardia and hypotension requiring [...] correction who has been transferred from the [place] for SULLY to L ICA. SULLY yesterday. Uncomplicated procedure. Post-procedure, has had hypotension and bradycard ia requiring pressor support. Hemodynamics are more stable this morning. Hope for weaning of norepinepherine gtt today. Cont ASA 325mg and Plavix 75mg x 3 months. Pt will require correction of his aortic stenosis. CT surg at the [place] aware of his status a nd would like him to have surgery in the next few days. They feel he is unsafe to return ho me. Pt reports he has issues at home regarding assisting with care of his parents for a few days. He will consider resources our manager social responsibility can provide. Discharge to home would p rovide an inappropriate delay in managing his according to cardiology and CT surgery. F/u stroke clinic in 4-6 weeks. This patient was discussed in detail with Dr. Cantu, attending stroke neurologist, who agre es with the above, including assessment and plan. 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 04/01 for evalua tion of the LICA stenosis, but develop an NSTEMI. He was admitted to the [place] where TTE showe d severe and mitral regurgitation. He was transferred to [facility] for LICA stenting (which oc curred 04/05) [...] yo man with hx HTN, known occluded JYACEE and >90% stenosis of LICA, amaurosis fugax, DM, tobacco use, HLD who was admitted to the [facility] 04/01 for an NSTEMI, found to have [...] family. Charly horne needs to call the [place] surgery clinic first thing Sunday to arrange admission to have his valve replaced. PT/OT SL/Swallow Code: Full This patient was discussed in detail with Dr. Browne, attending stroke neurologist, wh o agrees with the above, including assessment and plan. Radha Meadows PGY2 Neurology Pager [phone] Sarbjit Hobbs NP - 04/06/2012 5:58 AM PDT [facility] Neuroscience ICU Progress Note Team Pager: [phone] Attendin Attending Sander And Buffer: Primary Service Attending: MD Byron Gale MD [...] 0659 04/06/12 07 - 04/07/12 0659 Shift 3638-2462 9530-3684 0825-2333 Daily Total 8416-9494 4293-7811 6847-8038 Daily Total I N T A K E P.O. 220 220 I.V. 1343 3238.44 179.55 4760.99 Shift Total 1343 3458.44 179.55 4980.99 O U T P U T Urine 475 997 273 5418 Urine 475 632 055 5289 Shift Total 475 058 785 6694 NET 868 2863.44 -440.45 3290.99 Chemistries: Last [...] nervous system failure at t his time. [facility] DEPARTMENT: [id number] ICU NEURO Place of Service:- Inpatient Date of Service: 04/06/2012 CSN: [id number] Suggested Modifier: None Suggested CPT: TO WOOD CREW SUPERVISOR This patient has been staffed with Dr. Nallely Watters, attending physician, who agrees with t he above assessment and plan. REJI Yanez NP Fariba Verde MD - 04/05/2012 7:21 PM PDT [facility] ATTENDING NEUROINTENSIVIST PROGRESS NOTE Team Pager: [phone] Attendin -------- EVENING NOTE -------- Date:04/05/2012 Critical [...] to baroreceptor dysfunction post op; Will r/o DC in light of recent NSTEMI and he [...] management of this patient. Fariba Daugherty MD [facility] DEPARTMENT: [id number] ICU NEURO Place of Service:- Inpatient Date of Service: 04/05/2012 CSN: [id number] Suggested Modifier: None Suggested CPT: TO WOOD CREW SUPERVISOR RELEVANT DATA: Last Vitals: BP 90/53 | [...] - 04/05/2012 2:25 PM PDTDiscussed case with [place] cardiothoracic surgery. Per Dr. Berry, pt needs to be transferred back to the [place] once he is stable for transfer from the [facility]. The y would then start him on a heparin drip and replace his aortic valve next week. Social work would do their best to help him with his home situation (parents with dementia who need his care). They strongly discourage him from going home prior to going back to the [place] because o f the severity of aortic stenosis and risk of permanent disability and even if he goes home. If he declines transfer back to the [place], then [facility] because [facility]) and would need to call Zuleima Hodges at the [place] to arrange to get in next week to discuss valve replacement. Zuleima Hodges (clinical biochemist) pager [phone], ext [phone] (must be dialed from the [place] sy stem or [facility] te[facility] and ask them to page her). CT surgeon - Dr. Kristi Meadows PGY2 Neurology Pager [phone] John Wu Md - 04/05/2012 1:08 PM [...] exam and care plan as per the house manager's note (Dr. Regan/Fr deluca) and have examined the patient myself. ID: Navdeep Chávez is a 71 y.o. male with h/o HTN, DM2 and severe aortic stenosis who was tra nsferred from [facility] for management of Carotid stenosis. Patient was evaluated on 03/05 for carotid disease at [place], but during that eval developed palpitations and [...] Phillip Browne M.D. Vascular Neurology Clinical Instructor [facility] DEPARTMENT: [facility] STR[facility]KE [facility] - [id number] Place of Service: - CSN: [id number] Suggested Modifer: MOR Resident Present Suggested Level of Service: 32003 - Consults, Detailed/low complex 55 min Suggested Diagnosis: 433.11 - Symptomatic Stenosis, Carotid Artery Lusi Singer MD - 04/05/2012 7:59 AM PDTFormatting of this note might be different from the origi nal. 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 04/01 for evalua tion of the LICA stenosis, but develop palpitations and SOB. Found to have NSTEMI, trops pea ked at 0.15. He was admitted to the [place] where TTE showed severe and mitral regurgitation. Cardiac cath found moderated CAD, but no areas for intervention. Pt needs aortic valve repla cement for his severe , but must have his stenotic LCIA addressed prior to surgery. Given his recent NSTEMI and occluded right ICA, he is not a candidate for CEA. For this reason, he has been transferred to [facility] for LICA stent placement. S: - no [...] use, HLD who was admitted to the [facility] 04/01 for an NSTEMI, found to have [...] and plan. Radha Meadows PGY2 Neurology Pager [phone] Nallely Angel MD - 04/05/2012 7:30 AM [facility] ATTENDING Author: Nallely Watters MD I have evaluated the patient together with Dr. Charles and agree with the assessment and plan of care. Briefly, this is a 71 y/o man with a PMH of HTN and current smoking who had a planned admis pham for JAYCEE stenosis stenting this month. Four days ago, he developed chest pain and repor aramis to the [place] where he was found to have a NSTEMI. Cath showed 3 vessel disease needing CABG . In order to undergo this needed surgery, doctors recommended patient have his JAYCEE stenosi s addressed first. Patient transferred from the [place] to have this done. As it turns [...] to ischemic stroke, cerebral edema, seizure, hypotension, DC, cardiac arrest 1. Neuro -Cont. ASA/Plavix -PT/OT [...] an d discussion with treatment decision maker. [facility] DEPARTMENT: [id number] CRITICAL CARE Place of Service: Inpatient Date of Service: 04/05/2012 CSN: [id number] Suggested Level of Care: 38977 - CRITICAL CARE, 1ST HOUR EACH DAY Cesilia Saravia MD - 04/05/2012 5:57 AM PDT [facility] Neuroscience ICU Progress Note Team Pager: [phone] Attendin Attending Sander And Buffer: Primary Service Attending: MD Byron Gale MD [...] Briefly, he was recently admitted to the [place] after noting significant lightheadedness and palpitations (no [...] Will need to transfer back to the [place] once stable s/p carotid stent. Info rmed [...] - 04/05/1259 04/05/12699 - 04/06/12 0659 Shift 8373-5305 0145-3062 6211-4003 Daily Total 6158-5370 2267-0160 4851-5436 Daily Total I N T A K [...] NAVNEET | [address] | [place], [place] | | | VICTOR MANUEL CASILLAS OF CARE | [facility] | [address] | | | TESTS | | | [...] | + + + + + | [facility] DEPARTMENT OF | [address] | [place] [address] | | | PATHOLOGY | [address] [...] DEPARTMENT OF | [address] | [place] [address] | | | PATHOLOGY | [address] [...] DEPARTMENT OF | [address] | [place] [address] | | | PATHOLOGY | [address] [...] | + + + + + | [facility] DEPARTMENT | [address] | [place] [address] | | | PATHOLOGY | [address] | | | + + + + + CAPILLARY BLOOD GLUCOSE, POC (04/06/2012 10:23 PM PDT) + +-------+ + + + | Component | Value | Ref Range | Performed | Pathologist | | | | | At | Signature | + +-------+ + + + | BLOOD | 98 | 60 - 99 mg/dL | [facility] - | | | GLUCOSE, | | [...] DARIELAAM | [address] | [place], [place] | | | VICTOR MANUEL CASILLAS OF [facility] | [address] | [address] | | | TESTS | | | [...] TOTH | [address] | [place], [place] | | | VICTOR MANUEL CASILLAS OF YAN | [facility] | [address] | | | TESTS | | | [...] MARQUAM | [address] | [place], [place] | | | VICTOR MANUEL CASILLAS OF [facility] | [address] | [address] | | | TESTS | | | [...] view image for the detailed interpretation from Lag[facility] results. | CARDIOLOGY | + + + + + + + + | Performing | Address | City/State/Zipcode | Phone Number | | Organization | | | | + + + + + | [facility] | [address] | [place], [place] | | | CARDIOLOGY | [address] | [address] | | + + + + + [...] | + + + + + | [facility] | [address] | [place] [address] | | | PATHOLOGY | [address] [...] [facility] | [address] | [place] [address] | | | PATHOLOGY | [address] [...] | + + + + + | [facility] | [address] | [place] [address] | | | PATHOLOGY | [address] [...] DARIELAAM | [address] | [place], [place] | | | [facility] | [facility] | [address] | | | TESTS | | | [...] view image for the detailed interpretation from Laguo results. | CARDIOLOGY | + + + + + + + + | Performing | Address | City/State/Zipcode | Phone Number | | Organization | | | | + + + + + | [facility] | [address] | [place], [place] | | | CARDIOLOGY | [address] | [address] | | + + + + + [...] | + + + + + | [facility] | [address] | [place] [address] | | | PATHOLOGY | [address] [...] ug/L | [facility] | | | | [employer], | | REG UNIV | | | | | | PTH - INTFC | | | | [address] | | | | | | [facility] | | | | | | [address] | | | | | | | | | | | | www.[employer], | | | | | | Janine [...] [facility] | [address] | [place], [place] | | | UNIV PTH - INTFC | | [address] | | + + + + + [...] | + + + + + | [facility] | [address] | [place] [address] | | | PATHOLOGY | [address] | | | + + + + + CAPILLARY BLOOD GLUCOSE, POC (04/05/2012 8:19 PM PDT) + +-------+ + + + | Component | Value | Ref Range | Performed | Pathologist | | | | | At | Signature | + +-------+ + + + | BLOOD | 90 | 60 - 99 mg/dL | [facility] - | | | GLUCOSE, | | [...] TOTH | [address] | [place], [place] | | | [facility] | [address] | [address] | | | TESTS | | | [...] | + + + + + | [facility] | [address] | [place] [address] | | | PATHOLOGY | [address] [...] + + | [facility] | [address] | [place] [address] | | | PATHOLOGY | [address] [...] view image for the detailed interpretation from Laguo results. | CARDIOLOGY | + + + + + + + + | Performing | Address | City/State/Zipcode | Phone Number | | Organization | | | | + + + + + | [facility] | [address] | [place], [place] | | | CARDIOLOGY | [address] | [address] | | + + + + + [...] Benítez | | | | | | LEAD [employer]UR[employer] APPRENTICE SURGEONS: | | | | | | [...] | | | | | segment elevation DC. | | | | | | His [...] | | | | | access, a 7-Belgian | | | | | | triple [...] | | | | | | guidance, a4-Belgian | | | | | | micropuncture needle was | | | | | | used to cannulate the | | | | | | vessel,allowing for the | | | | | | placement of a 4-Belgian | | | | | | dilator utilizing a | | | | | | 4-Frenchmicropuncture | | | | | | kit. Through the | | | | | | 4-Belgian dilator, a | | | | | [...] Next, | | | | | | [id number] needle was | | | | | | introduced into the | | | | | | right common femoral | | | | | | arteryallowing for the | | | | | | placement of a Francis | | | | | | wire. Over the Francis | | | | | | wire, a6-Belgian short | | | | | | sheath was placed. | | | | | | Heparin was | | | | | | administered fortarget | | | | | | ACT greater than 250. | | | | | | Through the 6-Belgian | | | | | | short sheath, a5-Belgian | | | | | | pigtail [...] a | | | | | | 5-Belgian Phoenix catheter. | | | | | [...] | | | | | exchange wire, a6-Belgian | | | | | | flexor/6.5-Belgian TASHA | | | | | | [...] | | + +---------+ + + | [facility] | | | | | [...] | + + + + + | [facility] | [address] | [place] [address] | | | PATHOLOGY | [address] [...] view image for the detailed interpretation from Laguo results. | CARDIOLOGY | + + + + + + + + | Performing | Address | City/State/Zipcode | Phone Number | | Organization | | | | + + + + + | [facility] | [address] | [place], [place] | | | CARDIOLOGY | [address] | [phone] | | + + + + + [...] ([facility]) | | | [facility] [address] | | | [place] [address] | | + + + + + + + + | Performing | Address | City/State/Zipcode | Phone Number | | Organization | | | | + + + + + | [facility] | [address] | [place] [address] | | | LABORATORY | | | [...] DEPARTMENT OF | | result. Phoned TO ISABEAL MONTGOMERY AT [facility]. Readback. | PATHOLOGY | + + + + + + + + | Performing | Address | City/State/Zipcode | Phone Number | | Organization | | | | + + + + + | [facility] | [address] | [place] [address] | | | PATHOLOGY | [address] [...] DEPARTMENT OF | [address] | [place] [address] | | | PATHOLOGY | [address] [...] | + + + + + | [facility] | [address] | [place] [address] | | | PATHOLOGY | [address] [...] | 28.6Comment: | 26.0 - 36.0 | [facility] | | | | APTT Therapeutic Range [...] | + + + + + | [facility] | [address] | [place] [address] | | | PATHOLOGY | [address] [...] | [facility] | [address] | [place] [address] | | | PATHOLOGY | [address] [...] | + + + + + | [facility] | [address] | [place] [address] | | | PATHOLOGY | [address] [...] | + + + + + | [facility] | [address] | [place] [address] | | | PATHOLOGY | [address] [...] | + + + + + | [facility] | [address] | [place] [address] | | | PATHOLOGY | [address] | | | + + + + + documented in this encounter Visit Diagnoses + + | Diagnosis | + + | Carotid stenosis - Primary Occlusion and stenosis of carotid artery without mention | | of cerebral infarction | + + | CAD (coronary artery disease) Coronary atherosclerosis of unspecified type of vessel, | | [place] or graft | + + | NSTEMI [...] PM PDT | | | | | [facility] 04/04/12 at 1930, Until Mon | [...] | | | oral, ONCE, 1 dose, [facility] 04/04/12 at | | 12 8:41 [...]
--- OUTSIDE RECORDS SUMMARY | ~2020-04-21 | XMS | Encounter Summary ---
Demographics + + + | Address | [address] | | | [place] [address] | + + + | Home Phone | | + + + | Preferred Language | Unknown | + + + | Marital Status | | + + + | Roman Catholic Affiliation | Unknown | + + + | Race | White | + + + | Ethnic Group | Not or | + + + Author + + + | Author | [facility] | | | and [place] | + + + | Organization | [facility] | | | [...] Team Providers + +------+ + | Care Centrifugal Chiller Technician Name | Role | Phone | + +------+ + | Harley Caro MD | PCP | | + +------+ + Encounter Details +--------+ + + + + | Date | Type | Department | Care Team | Description | +--------+ + + + + | 10/30/ | Orders Only | [facility] | Jazm[facility] Mayo | | | 2019 | | [address] | [address] | | | | | [address]NY [address] | [address] | | | | | [place] | [place] [address] | | | | | [address] | [phone] | | | | | [phone] | | | +--------+ + + + [...] [place], | | | | | | [place] [address] | | | | | | [phone] | | | | | | | | +--------+---------+ + + + documented as of this encounter Procedures + +--------+ + + + | Procedure Name | Priori | Date/Time | Associated Diagnosis | Comments | | | ty | | | | + +--------+ + + + | ECHO INTERPRETATION | Routin | 10/30/2018 | | Results for this | | OF OUTSIDE FILMS | e | 2:04 PM | | procedure are in the | | | | PST | | results section. | + +--------+ + + + documented in this encounter Results ECHO Interpretation of Outside Films (10/30/2018 2:04 PM PST) + + | Specimen | + + | | + + + + + | Impressions | Performed At | + + + | 1. The left ventricle is normal in size, moderate concentric | | | hypertrophy and normal systolic function EF 55-60%. 2. The right | | | ventricle is mildly enlarged with normal systolic function. 3. Normal | | | porcine bioprosthetic aortic valve MAGNA 25 mm. 4. There is no | | | pericardial effusion. | | + + + + + + | Narrative | Performed At | + + + | Patient Name: Navdeep Chávez Date of : 1940 | | | Performing Physician: Reese Benedict | | | | | | INDICATIONS AORTIC STENOSIS, #25 MAGNA TISSUE AVR | | | CONCLUSIONS 1. The left ventricle is normal in size, | | | moderate concentric hypertrophy and normal systolic function EF | | | 55-60%. 2. The right ventricle is mildly enlarged with normal | | | systolic function. 3. Normal porcine bioprosthetic aortic valve MAGNA | | | 25 mm. 4. There is no pericardial effusion. FINDINGS -------- | | | ECG rhythm: Sinus rhythm. Study: A 2-dimensional transthoracic | | | echocardiogram with m-mode, spectral and color flow Doppler was | | | perfomed. Study: This was a technically adequate study. Left | | | Ventricle: Overall left ventricular systolic function is normal with, | | | an EF between 55 - 60 %. Left Ventricle: The left ventricle cavity | | | size is normal. Left Ventricle: There is moderate concentric left | | | ventricular hypertrophy. Right Ventricle: The right ventricle is | | | mildly enlarged measuring between 3.4 - 3.7 cm. Right Ventricle: The | | | right ventricular systolic function is normal. Left Atrium: The left | | | atrium is normal in size. Right Atrium: The right atrium is normal in | | | size. Aortic Valve: There is no evidence of aortic regurgitation. | | | Aortic Valve: Normal porcine bioprosthetic aortic valve. Aortic | | | Valve: Peak/mean gradient across the valve is 16.47mmHg/9.41mmHg. | | | Mitral Valve: No mitral regurgitation observed. Mitral Valve: Mild | | | mitral annular calcification present. Tricuspid Valve: The tricuspid | | | valve appears structurally normal. Tricuspid Valve: Pulmonary artery | | | systolic pressure could not be assessed due to the absence of adequate | | | TR jet. Pulmonic Valve: The pulmonic valve was not well visualized. | | | Pericardium: There is no pericardial effusion. Pericardium: No | | | pleural effusion seen. IVC/Hepatic Veins: The inferior vena cava is | | | normal in size and collapses > 50 % with sniff, indicating normal | | | central venous pressures. 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 MEASUREMENTS Ao asc: 4.01 | | | cm Ao sinus: 3.[address] junct: 3.19 cm IVC: 0.95 cm | | | LA Diam: 4.65 cm EDV(Teich): 91.75 ml IVSd: 1.75 cm LVIDd: | | | 4.48 cm LVPWd: 1.45 cm LVOT Area: 3.56 cm2 LVOT Diam: | | | 2.12 cm %FS: 30.36 % EF(Teich): 57.91 % ESV(Teich): 38.61 | | | ml LVIDs: 3.12 cm SV(Teich): 53.13 ml RV Minor: 3.69 cm | | | LVEF MOD A2C: 60.09 % SV MOD A2C: 36.98 ml LVEF MOD A4C: | | | 46.78 % SV MOD A4C: 40.35 ml EF Biplane: 53.76 % LVEDV MOD | | | BP: 73.42 ml LVESV MOD BP: 33.94 ml LVEDV MOD A2C: 61.54 ml | | | LVLd A2C: 7.96 cm LVEDV MOD A4C: 86.26 ml LVLd A4C: 7.81 | | | cm LVESV MOD A2C: 24.56 ml LVLs A2C: 6.77 cm LVESV MOD A4C: | | | 45.91 ml LVLs A4C: 6.94 cm LAESV(A-L): 53.55 ml LAESV | | | Index (A-L): 25.14 ml/m2 LAAs A2C: 16.45 cm2 LAESV A-L A2C: | | | 44.95 ml LALs A2C: 5.11 cm LAAs A4C: 17.27 cm2 LAESV A-L | | | A4C: 56.21 ml LALs A4C: 4.50 cm RAAs: 15.61 cm2 RAESV A-L: | | | 44.47 ml RAESV MOD: 39.99 ml RALs: 4.65 cm TAPSE: 1.63 | | | cm AV maxP.46 mmHg AV meanP.41 mmHg AV Vmax: | | | 2.02 m/s AV Vmean: 1.45 m/s AV VTI: 37.51 cm SHAY Vmax: | | | 1.92 cm2 SHAY (VTI): 1.96 cm2 AVAI (Vmax): 0.00 cm2/m2 AVAI | | | (VTI): 0.00 cm2/m2 LVOT maxP.81 mmHg LVOT meanP.62 | | | mmHg LVSI Dopp: 34.63 ml/m2 LVSV Dopp: 73.77 ml LVOT Vmax: | | | 1.09 m/s LVOT Vmean: 0.76 m/s LVOT VTI: 20.72 cm MV A Rom: | | | 0.86 m/s MV Dec Cidra: 3.38 m/s2 MV DecT: 151.49 ms MV E | | | Rom: 0.51 m/s MV E/A Ratio: 0.59 MV PHT: 43.93 ms MVA By | | | PHT: 5.00 cm2 Septal e': 0.04 m/s Septal E/e': 11.08 | | | Lateral e': 0.06 m/s Lateral E/e': 7.74 RAP: 5 mmHg | | | Bow String Maker: CADENCE Authenticated by: Reese Benedict Report | | | Date/Time: 10-31-2018 18:34:35 | | + + + + + | Procedure Note | + + | Mk Bains Conversion - 04/24/2019 1:49 PM PDT Patient Name: Neil Chávez of | | : 1940 Performing Physician: Reese | | Jak INDICATIONS------ | | -----AORTIC STENOSIS, #25 MAGNA TISSUE AVR CONCLUSIONS 1. The left ventricle | | is normal in size, moderate concentric hypertrophy and normal systolic function EF | | 55-60%.2. The right ventricle is mildly enlarged with normal systolic function.3. Normal | | porcine bioprosthetic aortic valve MAGNA 25 mm.4. There is no pericardial effusion. | | FINDINGS--------ECG rhythm: Sinus rhythm.Study: A 2-dimensional transthoracic | | echocardiogram with m-mode, spectral and color flow Doppler was perfomed.Study: This was | | a technically adequate study.Left Ventricle: Overall left ventricular systolic function | | is normal with, an EF between 55 - 60 %.Left Ventricle: The left ventricle cavity size | | is normal.Left Ventricle: There is moderate concentric left ventricular | | hypertrophy.Right Ventricle: The right ventricle is mildly enlarged measuring between | | 3.4 - 3.7 cm.Right Ventricle: The right ventricular systolic function is normal.Left | | Atrium: The left atrium is normal in size.Right Atrium: The right atrium is normal in | | size.Aortic Valve: There is no evidence of aortic regurgitation.Aortic Valve: Normal | | porcine bioprosthetic aortic valve.Aortic Valve: Peak/mean gradient across the valve is | | 16.47mmHg/9.41mmHg.Mitral Valve: No mitral regurgitation observed.Mitral Valve: Mild | | mitral annular calcification present.Tricuspid Valve: The tricuspid valve appears | | structurally normal.Tricuspid Valve: Pulmonary artery systolic pressure could not be | | assessed due to the absence of adequate TR jet.Pulmonic Valve: The pulmonic valve was | | not well visualized.Pericardium: There is no pericardial effusion.Pericardium: No | | pleural effusion seen.IVC/Hepatic Veins: The inferior vena cava is normal in size and | | collapses > 50 % with sniff, indicating normal central venous pressures.Aorta: The | | ascending aorta is dilated measuring up to 40 mm MEASUREMENTS Ao asc: 4.01 | | cmAo sinus: 3.[address] junct: 3.19 cmIVC: 0.95 cmLA Diam: 4.65 cmEDV(Teich): | | 91.75 mlIVSd: 1.75 cmLVIDd: 4.48 cmLVPWd: 1.45 cmLVOT Area: 3.56 [id number] Diam: | | 2.12 cm%FS: 30.36 %EF(Teich): 57.91 %ESV(Teich): 38.61 mlLVIDs: 3.12 | | cmSV(Teich): 53.13 mlRV Minor: 3.69 cmLVEF MOD A2C: 60.09 %SV MOD A2C: 36.98 | | mlLVEF MOD A4C: 46.78 %SV MOD A4C: 40.35 mlEF Biplane: 53.76 %LVEDV MOD BP: | | 73.42 mlLVESV MOD BP: 33.94 mlLVEDV MOD A2C: 61.54 mlLVLd A2C: 7.96 cmLVEDV MOD | | A4C: 86.26 mlLVLd A4C: 7.81 cmLVESV MOD A2C: 24.56 mlLVLs A2C: 6.77 cmLVESV MOD | | A4C: 45.91 mlLVLs A4C: 6.94 cmLAESV(A-L): 53.55 mlLAESV Index (A-L): 25.14 | | ml/m2LAAs A2C: 16.45 [id number] A-L A2C: 44.95 mlLALs A2C: 5.11 cmLAAs A4C: 17.27 | | [id number] A-L A4C: 56.21 mlLALs A4C: 4.50 cmRAAs: 15.61 [id number] A-L: 44.47 | | mlRAESV MOD: 39.99 mlRALs: 4.65 cmTAPSE: 1.63 cmAV maxP.46 mmHgAV meanPG: | | 9.41 mmHgAV Vmax: 2.02 m/Michel Vmean: 1.45 m/Michel VTI: 37.51 cmAVA Vmax: 1.92 | | cm2AVA (VTI): 1.96 [id number] (Vmax): 0.00 cm2/m2AVAI (VTI): 0.00 cm2/m2LVOT maxPG: | | 4.81 mmHgLVOT meanP.62 mmHgLVSI Dopp: 34.63 ml/m2LVSV Dopp: 73.77 mlLVOT | | Vmax: 1.09 m/sLVOT Vmean: 0.76 m/sLVOT VTI: 20.72 cmMV A Rom: 0.86 m/sMV Dec | | Cidra: 3.38 m/s2MV DecT: 151.49 msMV E Rom: 0.51 m/sMV E/A Ratio: 0.59MV PHT: | | 43.93 msMVA By PHT: 5.00 [id number] e': 0.04 m/sSeptal E/e': 11.08Lateral e': | | 0.06 m/sLateral E/e': 7.74RAP: 5 mmHg Bow String Maker: DBSAuthenticated by: Reese | | AlsamaraReport Date/Time: 10-31-2018 18:34:35 IMPRESSION: 1. The left ventricle is normal | | in size, moderate concentric hypertrophy and normal systolic function EF 55-60%.2. The | | right ventricle is mildly enlarged with normal systolic function.3. Normal porcine | | bioprosthetic aortic valve MAGNA 25 mm.4. There is no pericardial effusion. | |Ao sinus: 3.89 cm | |Ao st junct: 3.19 cm | |IVC: 0.95 cm | |LA Diam: 4.65 cm | |EDV(Teich): 91.75 ml | |IVSd: 1.75 cm | |LVIDd: 4.48 cm | |LVPWd: 1.45 cm | |LVOT Area: 3.56 cm2 | |LVOT Diam: 2.12 cm | |%FS: 30.36 % | |EF(Teich): 57.91 % | |ESV(Teich): 38.61 ml | |LVIDs: 3.12 cm | |SV(Teich): 53.13 ml | |RV Minor: 3.69 cm | |LVEF MOD A2C: 60.09 % | |SV MOD A2C: 36.98 ml | |LVEF MOD A4C: 46.78 % | |SV MOD A4C: 40.35 ml | |EF Biplane: 53.76 % | |LVEDV MOD BP: 73.42 ml | |LVESV MOD BP: 33.94 ml | |LVEDV MOD A2C: 61.54 ml | |LVLd A2C: 7.96 cm | |LVEDV MOD A4C: 86.26 ml | |LVLd A4C: 7.81 cm | |LVESV MOD A2C: 24.56 ml | |LVLs A2C: 6.77 cm | |LVESV MOD A4C: 45.91 ml | |LVLs A4C: 6.94 cm | |LAESV(A-L): 53.55 ml | |LAESV Index (A-L): 25.14 ml/m2 | |LAAs A2C: 16.45 cm2 | |LAESV A-L A2C: 44.95 ml | |LALs A2C: 5.11 cm | |LAAs A4C: 17.27 cm2 | |LAESV A-L A4C: 56.21 ml | |LALs A4C: 4.50 cm | |RAAs: 15.61 cm2 | |RAESV A-L: 44.47 ml | |RAESV MOD: 39.99 ml | |RALs: 4.65 cm | |TAPSE: 1.63 cm | |AV maxP.46 mmHg | |AV meanP.41 mmHg | |AV Vmax: 2.02 m/s | |AV Vmean: 1.45 m/s | |AV VTI: 37.51 cm | |SHAY Vmax: 1.92 cm2 | |SHAY (VTI): 1.96 cm2 | |AVAI (Vmax): 0.00 cm2/m2 | |AVAI (VTI): 0.00 cm2/m2 | |LVOT maxP.81 mmHg | |LVOT meanP.62 mmHg | |LVSI Dopp: 34.63 ml/m2 | |LVSV Dopp: 73.77 ml | |LVOT Vmax: 1.09 m/s | |LVOT Vmean: 0.76 m/s | |LVOT VTI: 20.72 cm | |MV A Rom: 0.86 m/s | |MV Dec Cidra: 3.38 m/s2 | |MV DecT: 151.49 ms | |MV E Rom: 0.51 m/s | |MV E/A Ratio: 0.59 | |MV PHT: 43.93 ms | |MVA By PHT: 5.00 cm2 | |Septal e': 0.04 m/s | |Septal E/e': 11.08 | |Lateral e': 0.06 m/s | |Lateral E/e': 7.74 | |RAP: 5 mmHg | | | |Bow String Maker: DBS | |Authenticated by: Reese Benedict | |Report Date/Time: 10-31-2018 18:34:35 | | | |IMPRESSION: | |1. The left ventricle is normal in size, moderate concentric hypertrophy and normal systoli c function EF 55-60%. | |2. The right ventricle is mildly enlarged with normal systolic function. | |3. Normal porcine bioprosthetic aortic valve MAGNA 25 mm. | |4. There is no pericardial effusion. | + + documented in this encounter Visit Diagnoses Not on filedocumented in this encounter"
--- OUTSIDE RECORDS SUMMARY | ~2020-04-21 | XMS | Clinical Summary ---
Demographics + + + | Address | [address] | | | [place] [address] | + + + | Home Phone | | + + + | Preferred Language | Unknown | + + + | Marital Status | | + + + | Rastafarian Affiliation | Unknown | + + + | Race | White | + + + | Ethnic Group | Not or | + + + Author + + + | Author | [facility] | | | and [place] | + + + | Organization | [facility] | | | [...] Team Providers + +------+ + | Care Museum Director Name | Role | Phone | + +------+ + | Harley Caro MD | PCP | | + +------+ + Allergies + + + + + + | Active Allergy | Reactions | Severity | Noted | Comments | | | | | Date | | + + + + + + | Sulfamethoxazole-Tri | Other (See Comments) | Medium | 12/20/19 | Kidney Failure | | methoprim | | | 17 | | + + + + + + | Moxifloxacin | Rash | Medium | 11/27/19 | Rash | | | | | 09 | | + + + + + + Medications + + + +---------+------+------+-------+ | Medication | Sig | Dispensed | Refills | Star | End | Statu | | | | | | t | Date | s | | | | | | Date | | | + + + +---------+------+------+-------+ | Multiple | Take by mouth. | | 0 | 04/1 | | Activ | | Vitamins-Minerals | | | | 04/22 | | e | | (MENS MULTI VITAMIN | | | | 17 | | | | & MINERAL PO) | | | | | | | + + + +---------+------+------+-------+ | atorvaSTATin | Take 40 mg by mouth | | 0 | 04/1 | | Activ | | (LIPITOR) 40 mg | nightly. | | | 8/20 | | e | | tablet | | | | 17 | | | + + + +---------+------+------+-------+ | clopidogrel | Take 75 mg by mouth | | 0 | 04/1 | | Activ | | (PLAVIX) 75 mg | daily. | | | 8/20 | | e | | tablet | | | | 17 | | | + + + +---------+------+------+-------+ | potassium chloride | Take 20 mEq by mouth | | 0 | 04/1 | | Activ | | (KLOR-CON) 10 MEQ | daily. Indications: | | | 8/20 | | e | | ER tablet | Low Amount of | | | 17 | | | | | Potassium in the | | | | | | | | Blood | | | | | | + + + +---------+------+------+-------+ | metFORMIN | Take 500 mg by mouth | | 0 | 05/0 | | Activ | | (GLUCOPHAGE) 500 mg | 2 (two) times daily | | | 9/20 | | e | | tablet | with meals. | | | 17 | | | + + + +---------+------+------+-------+ | torsemide | Take 40 mg by mouth | | 0 | 08/1 | | Activ | | (DEMADEX) 20 mg | daily. | | | 3/20 | | e | | tablet | | | | 18 | | | + + + +---------+------+------+-------+ | | Inhale 1 puff into | | 0 | 08/1 | | Activ | | albuterol-ipratropiu | the lungs every 4 | | | 3/20 | | e | | m (COMBIVENT | (four) hours as | | | 18 | | | | RESPIMAT) 100-20 | needed for Wheezing. | | | | | | | mcg/puff inhaler | | | | | | | + + + +---------+------+------+-------+ | Fish Oil 1000 MG | Take 2 g by mouth | | 0 | 03/1 | | Activ | | delayed release | daily. | | | 8 | | e | | capsule | | | | 19 | | | + + + +---------+------+------+-------+ | Cyanocobalamin | Place 1 tablet under | | 0 | 03/1 | | Activ | | (VITAMIN B12) 3000 | the tongue daily. | | | 8 | | e | | MCG SUBL | | | | 19 | | | + + + +---------+------+------+-------+ | losartan (COZAAR) | Take 25 mg by mouth | | 0 | | | Activ | | 25 mg tablet | Daily. | | | | | e | + + + +---------+------+------+-------+ | ALPRAZolam (XANAX) | Take 0.5 mg by mouth | | 0 | | | Activ | | 0.5 mg tablet | 3 times daily as | | | | | e | | | needed for Anxiety. | | | | | | + + + +---------+------+------+-------+ | Multiple Vitamin | Take by mouth. 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[place] coronary artery of | 11/18/2018 | | [place] heart without angina pectoris | | + + + | S/P PTCA (percutaneous transluminal coronary angioplasty) | 11/18/2018 | + + + | History of PSVT (paroxysmal supraventricular tachycardia) | 11/18/2018 | + + + | S/P ablation of ventricular arrhythmia | 11/18/2018 | + + + | History of stroke without residual deficits | 11/18/2018 | + + + | Bilateral carotid artery stenosis | 11/18/2018 | + + + | History of left common carotid artery stent placement | 11/18/2018 | + + + | Ascending aorta dilatation | 11/18/2018 | + + + | Bilateral leg edema | 11/18/2018 | + + + | Type 2 DM with CKD stage 3 and hypertension | 11/18/2018 | + + + | Risk factors for obstructive sleep apnea | 11/18/2018 | + + + | Heart disease | 12/19/2016 | + + + | Arrhythmia | 04/03/2013 | + + + + + | Overview: DOT, with neda GONZALEZ | + + + + + | S/P aortic valve replacement with bioprosthetic valve | 02/20/2013 | + + + + + | Overview: Judy Serrano (andrei# [id number]), Cristino Green MD - [facility] | | Kaye BERNARD | + + + + + | S/P CABG x 1 | 02/20/2013 | + + + + + | Overview: SVG > EPIFANIO, Cristino Green MD - [facility], | | [place] | + + + + + | Carotid artery occlusion | 04/05/2012 | + + + + + | Overview: NEIL Stent (10x40 Precise Nitinol stent - St. | | [facility] [place]) | + + + +---+ | Chronic combined systolic and diastolic congestive heart failure | | + +---+ + + | Overview: chronic combined systolic / diastolic heart failure | + + + +---+ | COPD (chronic obstructive pulmonary disease) | | + +---+ + + | Overview: Emphysema | + + + +---+ | Chronic kidney disease | | + +---+ + + | Overview: Stage III (GFR 52 and 2013), now with acute kidney | | injury | + + + +---+ | Dilated cardiomyopathy | | + +---+ + + | Overview: EF 30% | + + Encounters +--------+ + + + + | Date | Type | Specialty | Care Team | Description | +--------+ + + + + | 01/26/ | Office | Cardiology | Pal Vera, | Coronary artery | | 2020 | Visit | | MD | disease involving | | | | | | [place] coronary | | | | | | artery of [place] | | | | | | heart without angina | | | | | | pectoris (Primary | | | | | | Dx); S/P CABG x 1; | | | | | | Chronic combined | | | | | | systolic and | | | | | | diastolic heart | | | | | | failure (HCC); | | | | | | Status post aortic | | | | | | valve replacement | | | | | | with bioprosthetic | | | | | | valve; History of | | | | | | PSVT (paroxysmal | | | | | | supraventricular | | | | | | tachycardia); | | | | | | Ascending aorta | | | | | | dilatation (HCC); | | | | | | History [...] | | | | | | deficits; Bilateral | | | | | | leg edema; Mixed | | | | | | hyperlipidemia; Type | | | | | | 2 DM with CKD stage | | | | | | 3 and hypertension | | | | | | (HCC); Chronic | | | | | | obstructive | | | | | | pulmonary disease, | | | | | | unspecified COPD | | | | | | type (HCC) | +--------+ + + + + | 01/26/ | Orders Only | Cardiology | Pal Vera, | S/P aortic valve | | 2020 | | | MD | replacement with | | | | | | bioprosthetic valve | | | | | | (Primary Dx); | | | | | | Chronic combined [...] placement | +--------+ + + + + from Last 3 Months Immunizations + + + + | Name | Administration Dates | Next Due | + + + + | INFLUENZA 66 Y OR >, | 06/07/2016 | | | TRIVALENT HIGH-DOSE | | | + + + + | PNEUMOCOCCAL | 06/25/2015 | | | CONJUGATE 13-VALENT | | | | (PCV13) | | | + + + + | PNEUMOCOCCAL | 06/07/2016 | | | POLYSACCHARIDE | | | | 23-VALENT (PPSV23) | | | + + + + Family History + + +------+ + | Medical History | Relation | Name | Comments | + + +------+ + | Alcohol abuse | Father | | | + + +------+ + | Other (see comment) | Mother | | Bowel Disease | + + +------+ + | Stroke | Mother | | | + + +------+ + + +------+ + + | Relation | Name | Status | Comments | + +------+ + + | Father | | | following abdominal surgery | | | | (Age | | | | | 50) | | + +------+ + + | Father | | | | + +------+ + + | Mother | | | | | | | (Age | | | | | 96) | | + +------+ + + | Mother | | | | + +------+ + + Social History + +-------+ +--------+------+ [...] on file | | + + + Last Filed Vital Signs + + + + + | Vital Sign | Reading | Time Taken | Comments | + + + + + | Blood Pressure | 110/64 | 01/27/2020 2:05 PM | | | | | PDT | | + + + + + | Pulse | 76 | 01/27/2020 2:05 PM | | | | | PDT | | + + + + + | Temperature | - | - | | + + + + + | Respiratory Rate | 20 | 11/18/2018 2:40 PM | | | | | PDT | | + + + + + | Oxygen Saturation | 93% | 01/27/2020 2:05 PM | | | | | PDT | | + + + + + | Inhaled Oxygen | - | - | | | Concentration | | | | + + + + + | Weight | 89.2 kg (196 lb 9.6 | 01/27/2020 2:05 PM | | | | oz) | PDT | | + + + + + | Height | 180.3 cm (5' 11") | 07/15/2019 2:21 PM | | | | | PST | | + + + + + | Body Mass Index | 27.42 | 07/15/2019 2:21 PM | | | | | PST | | + + + + + Plan of Treatment +--------+---------+ + + + | Date | Type | Specialty | Care Team | Description | +--------+---------+ + + + | 04/27/ | Office | Cardiology | Pal Vera, | | | 2019 | Visit | | MD [address] | | | | | | [place], | | | | | | [place] [address] | | | | | | [phone] | | | | | | | | +--------+---------+ + + + + + + + + | Health Maintenance | Due Date | Last | Comments | | | | Done | | + + + + + | Hepatitis C | | | | | Screening | 2 | | | + + + + + | Med Mgmt: Cr | | | | | | 2 | | | + + + + + | Med Mgmt: HBA1C | | | | | | 2 | | | + + + + + | Med Mgmt: K | | | | | | 2 | | | + + + + + | Med Mgmt: Na | | | | | | 2 | | | + + + + + | Med Mgmt: eGFR | | | | | | 2 | | | + + + + + | Medication | | | | | Management | 2 | | | + + + + + | Diabetic Eye Exam | | | | | | 0 | | | + + + + + | Diabetic Foot Exam | | | | | | 0 | | | + + + + + | Hemoglobin A1c | | | | | Screening | 0 | | | + + + + + | Vaccine: | | | | | Dtap/Tdap/Td (1 - | 1 | | | | Tdap) | | | | + + + + + | Vaccine: Zoster (1 | | | | | of 2) | 2 | | | + + + + + | Adult Annual | | | | | Wellness Visit | 9 | | | + + + + + | Vaccine: Influenza | | 06/11/20 | | | (#1) | 0 | 18, | | | | | 07/05/20 | | | | | 17, | | | | | 06/07/20 | | | | | 16 | | + + + + + | Vaccine: | Completed | 06/07/20 | | | Pneumococcal 65+ | | 16, | | | | | 06/25/20 | | | | | 15 | | + + + + + Results Not on filefrom Last 3 Months Insurance + +--------+ +--------+ +---------+--------+ | Payer | Benefi | Subscriber | Effect | Phone | Address | Type | | | t Plan | ID | maura | | | | | | / | | Dates | | | | | | Group | | | | | | + +--------+ +--------+ +---------+--------+ | MEDICARE | RAILRO | [id number] | 09/03/19 | [phone] | | Medica | | | AD | | 07-Pre | 5 | | re | | | MEDICA | | sent | | | | | | RE | | | | | | + +--------+ +--------+ +---------+--------+ | AARP | AARP | [id number] | 09/03/19 | [phone] | | Indemn | | | MDCR | | 19-Pre | 0 | | ity | | | SUPPL | | sent | | | | + +--------+ +--------+ +---------+--------+ + +--------+ +--------+ + + | Guarantor Name | Accoun | Relation to | Date | Phone | Billing Address | | | t Type | Patient | of | | | | | | | | | | + +--------+ +--------+ + + | Navdeep Chávez | Person | Self | [birth year] | [phone] | | | al/Fam | | 1941 | [phone] | [place] | | | [place] | | | 1 (Home) | [address] | + +--------+ +--------+ + + Advance Directives + + + + + | Type | Date Recorded | Patient | Explanation | | | | Musical Instrument Supervisor | | + + + + + | Power of | | | | | Bass String Winder | | | | + + + + + | Advance | | | | | Directive | | | | + + + + +
--- OUTSIDE RECORDS SUMMARY | ~2020-04-21 | XMS | Encounter Summary ---
Demographics + + + | Address | [address] | | | [place] [address] | + + + | Home Phone | | + + + | Preferred Language | Unknown | + + + | Marital Status | | + + + | Adventism Affiliation | PRO | + + + | Race | White | + + + | Ethnic Group | Not or | + + + Author + + + | Author | [facility] | + + + | Organization | [facility] | + + + | Address | Unknown | + + + | Phone | Unavailable | + + + Support + + + + + | Name | Relationship | Address | Phone | + + + + + | Allyssa Chávez | ECON | [address] | | | | | [place] | | | | | [address] | | + + + + + Care Team Providers + +------+ + | Care Labor Utilization Superintendent Name | Role | Phone | + [...] [address] | | | | | [facility], | [place], [place] | | | | | [place] [address] | [address] | | | | | [phone] | [phone] | | | | | | | | | | | | Malini Henderson, | | | | | | BULLET LUBRICANT MIXER [address] [facility] | | | | | | [address] | | | | | | [place], [place] | | | | | | [address] | | | | | | [phone] | | | | | | | [...]
--- OUTSIDE RECORDS SUMMARY | ~2020-04-21 | XMS | Encounter Summary ---
Demographics + + + | Address | [address] | | | [place] [address] | + + + | Home Phone | | + + + | Preferred Language | Unknown | + + + | Marital Status | | + + + | Mormon Affiliation | Unknown | + + + [...] Team Providers + +------+ + | Care House Father Name | Role | Phone | + +------+ + | Harley Caro MD | PCP | | + +------+ + Reason for Visit Follow Up (Routine) + +--------+ + + + + | Status | Reason | Specialty | Diagnoses / | Referred By | Referred To | | | | | Procedures | Contact | Contact | + +--------+ + + + + | Authorized | | Internal | Diagnoses | Vania | [facility] | | | | Medicine - | [place] echo | MD Harley | Pal Velazquez MD | | | | Cardiovascula | done | [address] | | | | r Disease / | Procedures | [place] | MAGDI RICHTER | | | | Cardiology | OFFICE VISIT | [place] | [place] | | | | | REGULAR | [place] [address] | [place] | | | | | | Phone: | [phone] Phone: | | | | | | [phone] | [phone] | | | | | | Fax: | Fax: | | | | | | [phone] | [phone] | + +--------+ + + + + Encounter Details +--------+---------+ + + + | Date | Type | Department | Care Team | Description | +--------+---------+ + + + | 01/26/ | Office | [facility] | Pal Vera, | Coronary artery | | 2019 | Visit | CARDIOLOGY [place] | MD [address] | disease involving | | | | [address] | [place], | [place] coronary | | | | [address] | [place] [address] | artery of [place] | | | | [place] | [phone] | heart without angina | | | | [address] | | pectoris (Primary | | | | [phone] | | Dx); S/P CABG x 1; [...] | | | | type (HCC) | +--------+---------+ + + + Social History [...] + + + + | Height | - | - | | + + + + + | Body Mass Index | 27.42 | 07/15/2019 2:21 PM | | | | | PST | | + + + + + documented in this encounter Plan of Treatment +--------+---------+ + + + | Date | Type | Specialty | Care Team | Description | +--------+---------+ + + + | 04/27/ | Office | Cardiology | Pal Vera, | | | 2019 | Visit | | MD [address] | | | | | | [place], | | | | | | [place] [address] | | | | | | [phone] | | | | | | | | +--------+---------+ + + + documented as of this encounter Visit Diagnoses + + | Diagnosis | + + | Coronary artery disease involving [place] coronary artery of [place] heart without | | angina pectoris - Primary | + + | S/P CABG x 1 Postsurgical aortocoronary bypass status | + + | Chronic combined systolic and diastolic heart failure (HCC) Chronic combined systolic | | and diastolic heart failure | + + | Status post aortic valve replacement with bioprosthetic valve Heart valve replaced by | | other means | + + | History of PSVT (paroxysmal supraventricular tachycardia) Personal history of other | | diseases of circulatory system | + + | Ascending aorta dilatation (HCC) Thoracic aortic ectasia | + + | History of left common carotid artery stent placement | + + | Occlusion of right carotid artery Occlusion and stenosis of carotid artery without | | mention of cerebral infarction | + + | Hx of stroke without residual deficits Transient ischemic attack (TIA), and cerebral | | infarction without residual deficits | + + | Bilateral leg edema Edema | + + | Mixed hyperlipidemia | + + | Type 2 DM with CKD stage 3 and hypertension (HCC) | + + | Chronic obstructive pulmonary disease, unspecified COPD type (HCC) | + + documented in this encounter"
--- OUTSIDE RECORDS SUMMARY | ~2020-04-21 | XMS | Encounter Summary ---
Demographics + + + | Address | [address] | | | [place] [address] | + + + | Home Phone | | + + + | Preferred Language | Unknown | + + + | Marital Status | | + + + | Restorationism Affiliation | Unknown | + + + | Race | White | + + + | Ethnic Group | Not or | + + + Author + + + | Author | [facility] | | | and [place] | + + + | Organization | [facility] | | | [...] Team Providers + +------+ + | Care Mixed Animal Veterinarian Name | Role | Phone | + +------+ + | Harley Caro MD | PCP | | + +------+ + Encounter Details +--------+ + + + + | Date | Type | Department | Care Team | Description | +--------+ + + + + | 03/ | Orders Only | [facility] | Eleuterio Chatman | | | 2017 | | CONVERSION 888 | MD [address] | | | | | GENNY JUAREZ | [address] | | | | | [place] | [place] | | | | | [address] | [address] | | | | | [phone] | [phone] | | | | | | | [...] RICHTER | | | | | | [place], | | | | | | [place] [address] | | | | | | [phone] | | | | | | | | +--------+---------+ + + + documented as of this encounter Procedures + +--------+ + + + | Procedure Name | Priori | Date/Time | Associated Diagnosis | Comments | | | ty | | | | + +--------+ + + + | ECHO INTERPRETATION | Routin | 11/03/2016 | | Results for this | | OF OUTSIDE FILMS | e | 8:03 AM | | procedure are in the | | | | PST | | results section. | + +--------+ + + + documented in this encounter Results ECHO Interpretation of Outside Films (11/03/2016 8:03 AM PST) + + | Specimen | + + | | + + + + + | Impressions | Performed At | + + + | 1. The left ventricle is normal in size, moderate concentric | | | hypertrophy and hyperdynamic systolic function EF >70. 2. The | | | diastolic filling pattern indicates impaired relaxation consistent | | | with mild dysfunction (Grade I). 3. The right ventricle is mildly | | | enlarged, mild increased wall thickness and normal systolic funcion. | | | 4. Biprosthetic aortic rosales, mildly calcified with mild stenosis. 5. | | | Trace tricuspid regurgitation with no pulmonary hypertension. 6. | | | There is no pericardial effusion. 7. The ascending aorta is mildly | | | dilated measuring up to 4.2cm. | | + + + + + + | Narrative | Performed At | + + + | Patient Name: Navdeep Chávez Date of : 1940 | | | Performing Physician: Reese Benedict | | | | | | INDICATIONS Heart failure CONCLUSIONS | | | 1. The left ventricle is normal in size, moderate concentric | | | hypertrophy and hyperdynamic systolic function EF >70. 2. The | | | diastolic filling pattern indicates impaired relaxation consistent | | | with mild dysfunction (Grade I). 3. The right ventricle is mildly | | | enlarged, mild increased wall thickness and normal systolic funcion. | | | 4. Biprosthetic aortic rosales, mildly calcified with mild stenosis. 5. | | | Trace tricuspid regurgitation with no pulmonary hypertension. 6. | | | There is no pericardial effusion. 7. The ascending aorta is mildly | | | dilated measuring up to 4.2cm. FINDINGS -------- ECG rhythm: | | | Sinus rhythm. Study: A 2-dimensional transthoracic echocardiogram | | | with m-mode, spectral and color flow Doppler was perfomed. Study: | | | This was a technically adequate study. Left Ventricle: Left | | | ventricular systolic function is hyperdynamic with an estimated EF of | | | >70%. Left Ventricle: The left ventricle cavity size is normal. Left | | | Ventricle: There is moderate concentric left ventricular hypertrophy. | | | Left Ventricle: There is paradoxical/dysynergic septal motion | | | consistent with post-operative status. Left Ventricle: The diastolic | | | filling pattern indicates impaired relaxation consistent with mild | | | dysfunction (Grade I). Right Ventricle: The right ventricle is mildly | | | enlarged. Right Ventricle: The global wall thickness of the right | | | ventricle is mildly increased measuring between 5 - 10 mm. Right | | | Ventricle: The right ventricular systolic function is normal. Left | | | Atrium: The left atrial size is normal. Right Atrium: The right | | | atrium is mildly enlarged. Aortic Valve: There is no evidence of | | | aortic regurgitation. Aortic Valve: Mild aortic stenosis with | | | peak/mean pressure gradient of 13.29mmHg / 6.79mmHg, the aortic valve | | | area by continuity equation is 1.9cm . Aortic Valve: | | | Biprosthetic aortic rosales, mildly calcified with mild stenosis. Mitral | | | Valve: There is trace mitral regurgitation. Mitral Valve: Mild | | | mitral annular calcification present. Tricuspid Valve: The tricuspid | | | valve appears structurally normal. Tricuspid Valve: Trace tricuspid | | | regurgitation present. Tricuspid Valve: There is no evidence of | | | pulmonary hypertension. Tricuspid Valve: The right ventricular | | | systolic pressure (pulmonary artery systolic pressure), as measured by | | | Doppler, is 29.24mmHg. Pulmonic Valve: The pulmonic valve is normal. | | | Pulmonic Valve: Trace pulmonic regurgitation. Pericardium: There | | | is no pericardial effusion. Pericardium: No pleural effusion seen. | | | IVC/Hepatic Veins: The IVC is normal size (1.5-2.5cm) and collapses | | | >50% with sniff, consistent with central venous pressures of 5-10mmHg. | | | Aorta: The ascending aorta is mildly dilated measuring up to 4.2cm. | | | MEASUREMENTS Ao asc: 4.16 cm Ao Diam: 4.06 | | | cm Ao st junct: 3.71 cm IVC: 1.58 cm LA Diam: 4.08 cm LA | | | Major: 4.82 cm EDV(Teich): 93.79 ml IVSd: 1.55 cm LVIDd: | | | 4.52 cm LVPWd: 1.32 cm LVOT Area: 3.93 cm2 LVOT Diam: | | | 2.23 cm %FS: 11.76 % EF(Teich): 25.57 % ESV(Teich): 69.80 | | | ml LVIDs: 3.99 cm SV(Teich): 23.99 ml RA Major: 5.06 cm | | | RVIDd: 2.98 cm LVEF MOD A2C: 56.30 % SV MOD A2C: 36.15 ml | | | LVEF MOD A4C: 50.22 % SV MOD A4C: 27.35 ml EF Biplane: | | | 51.74 % LVEDV MOD BP: 59.21 ml LVESV MOD BP: 28.57 ml LVEDV | | | MOD A2C: 64.21 ml LVLd A2C: 7.54 cm LVEDV MOD A4C: 54.46 ml | | | LVLd A4C: 7.46 cm LVESV MOD A2C: 28.06 ml LVLs A2C: 6.87 | | | cm LVESV MOD A4C: 27.11 ml LVLs A4C: 6.60 cm LAESV(A-L): | | | 52.11 ml LAESV Index (A-L): 24.93 ml/m2 LAAs A2C: 15.57 cm2 | | | LAESV A-L A2C: 44.29 ml LALs A2C: 4.64 cm LAAs A4C: 18.32 | | | cm2 LAESV A-L A4C: 57.43 ml LALs A4C: 4.96 cm RAAs: 18.80 | | | cm2 RAESV A-L: 61.61 ml RAESV MOD: 57.05 ml RALs: 4.87 cm | | | Ao Diam: 3.22 cm LA Diam: 4.62 cm LA/Ao: 1.43 AV maxPG: | | | 13.28 mmHg AV meanP.79 mmHg AV Vmax: 1.81 m/s AV | | | Vmean: 1.22 m/s AV VTI: 27.48 cm SHAY Vmax: 1.88 cm2 SHAY | | | (VTI): 1.86 cm2 AVAI Vmax: 0.00 cm2/m2 AVAI (VTI): 0.00 | | | cm2/m2 LVOT maxP.01 mmHg LVOT meanP.63 mmHg LVSI | | | Dopp: 24.46 ml/m2 LVSV Dopp: 51.13 ml LVOT Vmax: 0.86 m/s | | | LVOT Vmean: 0.59 m/s LVOT VTI: 13.00 cm MV A Rom: 0.44 m/s | | | MV DecT: 214.60 ms MV E Rom: 0.46 m/s MV E/A Ratio: 1.03 | | | MV PHT: 62.23 ms MVA By PHT: 3.53 cm2 Septal e': 0.05 m/s | | | Septal E/e': 9.20 Lateral e': 0.07 m/s Lateral E/e': 6.18 | | | RAP: 5 mmHg RVSP: 29.23 mmHg TR maxP.23 mmHg TR Vmax: | | | 2.46 m/s Tying Machine Operator: IAIN Authenticated by: Jak | | | [facility] Report Date/Time: 11-08-2016 06:45:10 | | + + + + + | Procedure Note | + + | Herson, Rad Conversion - 04/24/2019 7:37 PM PDT Patient Name: Neil Chávez of | | : 1940 Performing Physician: Jak | | [place] INDICATIONS------- | | ----Heart failure CONCLUSIONS 1. The left ventricle is normal in size, | | moderate concentric hypertrophy and hyperdynamic systolic function EF >70.2. The | | diastolic filling pattern indicates impaired relaxation consistent with mild dysfunction | | (Grade I).3. The right ventricle is mildly enlarged, mild increased wall thickness and | | normal systolic funcion.4. Biprosthetic aortic rosales, mildly calcified with mild | | stenosis.5. Trace tricuspid regurgitation with no pulmonary hypertension.6. There is no | | pericardial effusion.7. The ascending aorta is mildly dilated measuring up to 4.2cm. | | FINDINGS--------ECG rhythm: Sinus rhythm.Study: A 2-dimensional transthoracic | | echocardiogram with m-mode, spectral and color flow Doppler was perfomed.Study: This was | | a technically adequate study.Left Ventricle: Left ventricular systolic function is | | hyperdynamic with an estimated EF of >70%.Left Ventricle: The left ventricle cavity size | | is normal.Left Ventricle: There is moderate concentric left ventricular | | hypertrophy.Left Ventricle: There is paradoxical/dysynergic septal motion consistent | | with post-operative status.Left Ventricle: The diastolic filling pattern indicates | | impaired relaxation consistent with mild dysfunction (Grade I).Right Ventricle: The | | right ventricle is mildly enlarged.Right Ventricle: The global wall thickness of the | | right ventricle is mildly increased measuring between 5 - 10 mm.Right Ventricle: The | | right ventricular systolic function is normal.Left Atrium: The left atrial size is | | normal.Right Atrium: The right atrium is mildly enlarged.Aortic Valve: There is no | | evidence of aortic regurgitation.Aortic Valve: Mild aortic stenosis with peak/mean | | pressure gradient of 13.29mmHg / 6.79mmHg, the aortic valve area by continuity equation | | is 1.9cm .Aortic Valve: Biprosthetic aortic rosales, mildly calcified with mild | | stenosis.Mitral Valve: There is trace mitral regurgitation.Mitral Valve: Mild mitral | | annular calcification present.Tricuspid Valve: The tricuspid valve appears structurally | | normal.Tricuspid Valve: Trace tricuspid regurgitation present.Tricuspid Valve: There is | | no evidence of pulmonary hypertension.Tricuspid Valve: The right ventricular systolic | | pressure (pulmonary artery systolic pressure), as measured by Doppler, is | | 29.24mmHg.Pulmonic Valve: The pulmonic valve is normal.Pulmonic Valve: Trace pulmonic | | regurgitation.Pericardium: There is no pericardial effusion.Pericardium: No pleural | | effusion seen.IVC/Hepatic Veins: The IVC is normal size (1.5-2.5cm) and collapses >50% | | with sniff, consistent with central venous pressures of 5-10mmHg.Aorta: The ascending | | aorta is mildly dilated measuring up to 4.2cm. MEASUREMENTS Ao asc: 4.16 | | cmAo Diam: 4.[address] junct: 3.71 cmIVC: 1.58 cmLA Diam: 4.08 cmLA Major: | | 4.82 cmEDV(Teich): 93.79 mlIVSd: 1.55 cmLVIDd: 4.52 cmLVPWd: 1.32 cmLVOT Area: | | 3.93 [id number] Diam: 2.23 cm%FS: 11.76 %EF(Teich): 25.57 %ESV(Teich): 69.80 | | mlLVIDs: 3.99 cmSV(Teich): 23.99 mlRA Major: 5.06 cmRVIDd: 2.98 cmLVEF MOD A2C: | | 56.30 %SV MOD A2C: 36.15 mlLVEF MOD A4C: 50.22 %SV MOD A4C: 27.35 mlEF Biplane: | | 51.74 %LVEDV MOD BP: 59.21 mlLVESV MOD BP: 28.57 mlLVEDV MOD A2C: 64.21 mlLVLd | | A2C: 7.54 cmLVEDV MOD A4C: 54.46 mlLVLd A4C: 7.46 cmLVESV MOD A2C: 28.06 mlLVLs | | A2C: 6.87 cmLVESV MOD A4C: 27.11 mlLVLs A4C: 6.60 cmLAESV(A-L): 52.11 mlLAESV | | Index (A-L): 24.93 ml/m2LAAs A2C: 15.57 [id number] A-L A2C: 44.29 mlLALs A2C: 4.64 | | cmLAAs A4C: 18.32 [id number] A-L A4C: 57.43 mlLALs A4C: 4.96 cmRAAs: 18.80 | | [id number] A-L: 61.61 mlRAESV MOD: 57.05 mlRALs: 4.87 cmAo Diam: 3.22 cmLA Diam: | | 4.62 cmLA/Ao: 1.43AV maxP.28 mmHgAV meanP.79 mmHgAV Vmax: 1.81 m/Michel | | Vmean: 1.22 m/Michel VTI: 27.48 cmAVA Vmax: 1.88 cm2AVA (VTI): 1.86 [id number] Vmax: | | 0.00 cm2/m2AVAI (VTI): 0.00 cm2/m2LVOT maxP.01 mmHgLVOT meanP.63 mmHgLVSI | | Dopp: 24.46 ml/m2LVSV Dopp: 51.13 mlLVOT Vmax: 0.86 m/sLVOT Vmean: 0.59 m/sLVOT | | VTI: 13.00 cmMV A Rom: 0.44 m/sMV DecT: 214.60 msMV E Rom: 0.46 m/sMV E/A | | Ratio: 1.03MV PHT: 62.23 msMVA By PHT: 3.53 [id number] e': 0.05 m/sSeptal E/e': | | 9.20Lateral e': 0.07 m/sLateral E/e': 6.18RAP: 5 mmHgRVSP: 29.23 mmHgTR maxPG: | | 24.23 mmHgTR Vmax: 2.46 m/s Tying Machine Operator: [email or web address] by: Jak | | MershedReport Date/Time: 11-08-2016 06:45:10 IMPRESSION: 1. The left ventricle is normal | | in size, moderate concentric hypertrophy and hyperdynamic systolic function EF >70.2. | | The diastolic filling pattern indicates impaired relaxation consistent with mild | | dysfunction (Grade I).3. The right ventricle is mildly enlarged, mild increased wall | | thickness and normal systolic funcion.4. Biprosthetic aortic rosales, mildly calcified with | | mild stenosis.5. Trace tricuspid regurgitation with no pulmonary hypertension.6. There | | is no pericardial effusion.7. The ascending aorta is mildly dilated measuring up to | | 4.2cm. | |IVSd: 1.55 cm | |LVIDd: 4.52 cm | |LVPWd: 1.32 cm | |LVOT Area: 3.93 cm2 | |LVOT Diam: 2.23 cm | |%FS: 11.76 % | |EF(Teich): 25.57 % | |ESV(Teich): 69.80 ml | |LVIDs: 3.99 cm | |SV(Teich): 23.99 ml | |RA Major: 5.06 cm | |RVIDd: 2.98 cm | |LVEF MOD A2C: 56.30 % | |SV MOD A2C: 36.15 ml | |LVEF MOD A4C: 50.22 % | |SV MOD A4C: 27.35 ml | |EF Biplane: 51.74 % | |LVEDV MOD BP: 59.21 ml | |LVESV MOD BP: 28.57 ml | |LVEDV MOD A2C: 64.21 ml | |LVLd A2C: 7.54 cm | |LVEDV MOD A4C: 54.46 ml | |LVLd A4C: 7.46 cm | |LVESV MOD A2C: 28.06 ml | |LVLs A2C: 6.87 cm | |LVESV MOD A4C: 27.11 ml | |LVLs A4C: 6.60 cm | |LAESV(A-L): 52.11 ml | |LAESV Index (A-L): 24.93 ml/m2 | |LAAs A2C: 15.57 cm2 | |LAESV A-L A2C: 44.29 ml | |LALs A2C: 4.64 cm | |LAAs A4C: 18.32 cm2 | |LAESV A-L A4C: 57.43 ml | |LALs A4C: 4.96 cm | |RAAs: 18.80 cm2 | |RAESV A-L: 61.61 ml | |RAESV MOD: 57.05 ml | |RALs: 4.87 cm | |Ao Diam: 3.22 cm | |LA Diam: 4.62 cm | |LA/Ao: 1.43 | |AV maxP.28 mmHg | |AV meanP.79 mmHg | |AV Vmax: 1.81 m/s | |AV Vmean: 1.22 m/s | |AV VTI: 27.48 cm | |SHAY Vmax: 1.88 cm2 | |SHAY (VTI): 1.86 cm2 | |AVAI Vmax: 0.00 cm2/m2 | |AVAI (VTI): 0.00 cm2/m2 | |LVOT maxP.01 mmHg | |LVOT meanP.63 mmHg | |LVSI Dopp: 24.46 ml/m2 | |LVSV Dopp: 51.13 ml | |LVOT Vmax: 0.86 m/s | |LVOT Vmean: 0.59 m/s | |LVOT VTI: 13.00 cm | |MV A Rom: 0.44 m/s | |MV DecT: 214.60 ms | |MV E Rom: 0.46 m/s | |MV E/A Ratio: 1.03 | |MV PHT: 62.23 ms | |MVA By PHT: 3.53 cm2 | |Septal e': 0.05 m/s | |Septal E/e': 9.20 | |Lateral e': 0.07 m/s | |Lateral E/e': 6.18 | |RAP: 5 mmHg | |RVSP: 29.23 mmHg | |TR maxP.23 mmHg | |TR Vmax: 2.46 m/s | | | |Tying Machine Operator: | |Authenticated by: Reese Benedict | |Report Date/Time: 11-08-2016 06:45:10 | | | |IMPRESSION: | |1. The left ventricle is normal in size, moderate concentric hypertrophy and hyperdynamic s ystolic function EF >70. | |2. The diastolic filling pattern indicates impaired relaxation consistent with mild dysfunc tion (Grade I). | |3. The right ventricle is mildly enlarged, mild increased wall thickness and normal systoli c funcion. | |4. Biprosthetic aortic rosales, mildly calcified with mild stenosis. | |5. Trace tricuspid regurgitation with no pulmonary hypertension. | |6. There is no pericardial effusion. | |7. The ascending aorta is mildly dilated measuring up to 4.2cm. | + + documented in this encounter Visit Diagnoses Not on filedocumented in this encounter"
--- OUTSIDE RECORDS SUMMARY | ~2020-04-21 | XMS | Encounter Summary ---
Demographics + + + | Address | [address] | | | [place] [address] | + + + | Home Phone | | + + + | Preferred Language | Unknown | + + + | Marital Status | | + + + | Samaritan Affiliation | PRO | + + + | Race | White | + + + | Ethnic Group | Not or | + + + Author + + + | Author | [facility] | + + + | Organization | [facility] | + + + | Address | Unknown | + + + | Phone | Unavailable | + + + Support + + + + + | Name | Relationship | Address | Phone | + + + + + | Allyssa Chávez | ECON | [address] | | | | | [place] | | | | | [address] | | + + + + + Care Team Providers + +------+ + | Care Publications Writer Name | Role | Phone | + +------+ + | No Pcp Per Patient | PCP | Unavailable | + +------+ + Reason for Visit + + + | Reason | Comments | + + + | 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
--- OUTSIDE RECORDS SUMMARY | ~2020-04-21 | XMS | Encounter Summary ---
Demographics + + + | Address | [address] | | | [place] [address] | + + + | Home Phone | | + + + | Preferred Language | Unknown | + + + | Marital Status | | + + + | Moravian Affiliation | PRO | + + + | Race | White | + + + | Ethnic Group | Not or | + + + Author + + + | Author | [facility] | + + + | Organization | [facility] | + + + | Address | Unknown | + + + | Phone | Unavailable | + + + Support + + + + + | Name | Relationship | Address | Phone | + + + + + | Allyssa Chávez | ECON | [address] | | | | | [place] | | | | | [address] | | + + + + + Care Team Providers + +------+ + | Care Chartered Accountant Name | Role | Phone | + [...] MD | stenosis | | | | [facility] | | | | | | [address] | | | | | | [address] [facility] | | | | | | [facility], | | | | | | [place] [address] | | | | | | [phone] | | | +--------+ + + + [...]
--- OUTSIDE RECORDS SUMMARY | ~2020-04-21 | XMS | Encounter Summary ---
Demographics + + + | Address | [address] | | | [place] [address] | + + + | Home Phone | | + + + | Preferred Language | Unknown | + + + | Marital Status | | + + + | Yazidism Affiliation | Unknown | + + + | Race | White | + + + | Ethnic Group | Not or | + + + Author + + + | Author | [facility] | | | and [place] | + + + | Organization | [facility] | | | and [...] Team Providers + +------+ + | Care Fermentologist Name | Role | Phone | + +------+ + | Harley Caro MD | PCP | | + +------+ + Encounter Details +--------+ + + + + | Date | Type | Department | Care Team | Description | +--------+ + + + + | 11/18/ | Orders Only | [facility] | Conversion | | | 2019 | | CONVERSION DEP [address] | Transaction, | | | | | GENNY MOLINAVD | Provider Unknown | | | | | [place] | [phone] | | | | | [address] | | | | | | [phone] | | | +--------+ + + + [...] | | | | | | [place] [address] | | | | | | [phone] | | | | | | | | +--------+---------+ + + + documented as of this encounter Visit Diagnoses Not on filedocumented in this encounter"
[~2020-04-21 20:29] MED LIST: ACCUNEB0.63 MG/3 IH; ALBUTEROL1.25 MG/3 NEB; ALBUTEROL2.5 MG/3 M PO; ASPIR-LOW81 MG PO; ASPIR-TRIN325 MG PO; CEPHALEXIN500 MG PO; CLOPIDOGREL75 MG PO; FINASTERIDE5 MG PO; FLOMAX0.4 MG PO; FUROSEMIDE20 MG PO; FUROSEMIDE40 MG PO; HYDROCODON-ACE1 EAC8 PO; IPRATROPIU0.2 MG/1 M NEB; IRBESARTAN150 MG PO; KLOR-CON 1010 MEQ PO; LEVAQUIN750 MG PO; LIPITOR40 MG PO; LISINOPRIL2.5 MG PO; MEN'S 50+ DAIL1 EACH PO; METOLAZONE5 MG PO; METOPROLOL SUCC25 MG PO; OXYCODONE HCL5 MG PO; SIMVASTATIN20 MG PO; STOOL SOFTENER1 EAC2 PO
--- OUTSIDE RECORDS SUMMARY | 2020-04-21 20:32 | XMS ---
PreManage Notification: CLARENCE SOLANO Security Protocol Manager Events No recent Security Events currently on file CRITERIA MET - Group Notification CARE PROVIDERS There are no care providers on record at this time. Uvaldo has no Care Guidelines for this patient. Tonya VISIT COUNT (12 MO.) 1 [facility]ERE [place] TOTAL 1 NOTE: Visits indicate total known visits. ED/UCC VISIT TRACKING (12 MO.) 04/21/2020 20:30 [place] TYPE: Emergency COMPLAINT: - FOREGIN BODY INPATIENT VISIT TRACKING (12 MO.) No inpatient visits to display in this time frame [id number]
== END 2020-04-21 22:04 | disposition home or self-care (01) ==
LOC: ED 20:29
DX: T18.128A Food in esophagus causing other injury, initial encounter (principal); J44.9 Chronic obstructive pulmonary disease, unspecified; Z87.891 Personal history of nicotine dependence; Z88.2 Allergy status to sulfonamides; Z88.8 Allergy status to other drugs, medicaments and biological substances; Z79.899 Other long term (current) drug therapy; Z79.01 Long term (current) use of anticoagulants
CPT/HCPCS: 71046; 96372; 99284-25; J1610

== ENCOUNTER 2020-12-03 10:00 | Day surgery (SDC) | payer MEDICARE ==
[~2020-12-03] VITALS: Ht 177.8 cm; Wt 84.1 kg
[~2020-12-03 10:00] MED LIST changes: +ALLOPURINOL100 MG PO; +ANORO ELLIPTA1 EACH INH; +COLCHICINE0.6 M1 PO; +COMBIVENT RESPIM4 GM INH; +COZAAR50 MG PO; +FISH OIL 1,0001 EAC2 PO; +GLUCOPHAGE500 MG PO; +HALCION0.25 MG PO; +HYDROXYZINE HCL10 MG PO; +LEXAPRO10 MG PO; +MEN'S DAILY FO1 EACH PO; +MIDNITE PM CHE1 EACH PO; +PLAVIX75 MG PO; +PREDNISONE20 MG PO; +SEREVENT DISKU1 PUFF INH; +TORSEMIDE20 MG PO
--- NOTE | 2020-12-03 15:36 | NUR ---
12/03/20 1536 Guerda Gaviria 1528- PT ARRIVES TO PACU AWAKE AND ORIENTED. PT REPORTS NO PAIN OR NAUSEA. RESP EVEN AND UNLABORED. OXYGEN SAT HIGH 90'S ON 6L VIA MASK. PT HAS BEEN IN AND OUT OF BIGEMINY AND TRIGEMINY. DR. ARCE AND GABY LUNA, KEG HEADER AWARE. 1534- OXYGEN TITRATED OFF.
--- NOTE | 2020-12-03 16:30 | NUR ---
LE 1625: PT ARRIVES ON UNIT FROM PACU VIA STRETCHER. REPORT RECEIVED FROM ELECTRICAL INSTALLATION INSPECTOR AND CARE ASSUMED BY THIS AUTHOR. VSS, CMS WNL. PT ALERT AND ORIENTED AND CONVERSES WITH SUPPORT PERSON. DRESSING C/D/I. ASHLEY PO INTAKE WELL AND DENIES NAUSEA. NO NEEDS VOICED AT THIS TIME. CALL LIGHT WITHIN REACH
--- NOTE | 2020-12-03 17:30 | NUR ---
STOOD at bedside with 2 nurse assist dribbled urine. bladder scanned for 688 mls on scanner. call to dr blanchard.
--- NOTE | 2020-12-03 18:00 | NUR ---
PATIENT ADMITTED OVERNIGHT FROM DAYSURGERY pt was unable to pass requirements after his inguinal surgery and will be here overnight for observation and care. pt VSS and assessment and intake completed at this time. pt ordered dinner and given fresh water and a new ice pack. pt in bed, oriented to unit, room, and call light. pt denies needs at this time. pts o2sats at >96% on 2L NC.
--- NOTE | 2020-12-03 18:02 | NUR ---
LE 0535: TRIALLED OFF OF NC, SATS DROPPED INTO THE 80'S AND PT PLACED BACK ON NC. TC PLACED TO MD CLAUDE. PT ADMITTED FOR OVERNIGHT STAY DUE TO URINARY RETENTION AND HYPOXEMIA. PT STRAIGHT CATH'D FOR 750ML CLEAR YELLOW URINE 0600: PT TRANSFERRED TO ROOM 120 VIA STRETCHER. BEDSIDE REPORT PROVIDED AND CARE ASSUMED.
--- NOTE | 2020-12-03 19:10 | NUR ---
SHIFT REPORT RECEIVED FROM FELI FISHER. PT RESTING IN BED. ABD PAIN 5/10, PT DECLINES NEED FOR PAIN INTERVENTION. DRESSING CDI, ICE PACK ON SITE. NO OTHER NEEDS AT THIS TIME.
--- NOTE | 2020-12-03 21:00 | NUR ---
ASSESSMENT, VS AND I&O COMPLETED. PT PAIN AFTER A COUGH IS 10/10, PRN PAIN MED PROVIDED. SPO2 92% ON 2L NC. LUNGS CLEAR, HEART TONES REGULAR. ABD FIRM, DISTENDED, TENDER IN RLQ. DRESSING CDI. PT DESCRIBES PAIN AN ACHE AND SHOOTING. CMS INTACT. IV CDI, WNL, FLUSHED WELL. SCDs ON. BOWEL TONES ACTIVE. PT ATE DINNER WITHOUT NAUSEA. NO OTHER NEEDS AT THIS TIME. CALL LIGHT IN REACH.
--- NOTE | 2020-12-03 22:35 | NUR ---
PT STATES HE HAS NAUSEA, PRN NAUSEA MED PROVIDED. PAIN IS 5/10 IN RLQ. ICE WATER PROVIDED. NO OTHER NEEDS, CALL LIGHT IN REACH.
--- NOTE | 2020-12-04 00:05 | NUR ---
PT CALLS TO USE URINAL. PAIN 8/10 IN ABD, PRN PAIN MED PROVIDED. ICE WATER PROVIDED. NO OTHER NEEDS. CALL LIGHT IN REACH.
--- NOTE | 2020-12-04 02:53 | NUR ---
PT HAS EMESIS, PRN NAUSEA MED PROVIDED. IV WNL. ASSESSMENT COMPLETED. ABD PAIN 5/10, ICE PACK PROVIDED. DRESSING CDI. RLQ DISTENDED. TENDER, BOWEL TONES ACTIVE. NO OTHER NEEDS AT THIS TIME. CALL LIGHT IN REACH.
--- NOTE | 2020-12-04 05:00 | NUR ---
PT RESTING IN BED, EYES CLOSED. RR EVEN, UNLABORED. NC @ 2L. CALL LIGHT IN REACH.
--- NOTE | 2020-12-04 06:03 | NUR ---
PT USED URINAL. VS AND I&O COMPLETED. ABD PAIN 10/13. NO OTHER NEEDS CALL LIGHT IN REACH.
--- NOTE | 2020-12-04 07:00 | NUR ---
REPORT RECIEVED. PT IN BED WITH EYES CLOSED. RESPIRATIONS EQUAL AND NONLABORED. CALL LIGHT IN REACH
[2020-12-04] MEDS ORDERED: HYDROCODON-ACE1 EAC8 PO (09:19)
--- NOTE | 2020-12-04 09:39 | NUR ---
ASSESSMENT COMPLETED. PT NOTED TO HAVE ABDOMINAL SWELLING ON THE RIGHT SIDE OF THE ABDOMEN. BLADDER SCAN COMPLETED WITH NO URINE IN BLADDER. DRESSING TO RIGHT GROWN INSISION IS C/D/I. ICE APPLIED. PT ATE ALL BREAKFAST. LUNGS CLEAR. DR ARCE NOTIFIED OF ABDOMEN SWELLING. NO NEW ORDERS. CONTINUE WITH DISCHARGE.
--- NOTE | 2020-12-04 09:52 | NUR ---
PHARMACY IN ROOM TALKING TO PT ABOUT MEDICAITONS AND SIDE EFFECTS. CONTACT ERICA CALLED FOR RIDE.
--- NOTE | 2020-12-05 19:43 | OR ---
[facility] [address], [place] [address] Signed DATE OF OPERATION: 12/03/2020 SURGEON: Shelby Arce MD PREOPERATIVE DIAGNOSES: 1. Reducible right inguinal hernia. 2. Bilateral hydroceles. POSTOPERATIVE DIAGNOSES: 1. Left hydrocele. 2. Reducible right borcatky-rl-zibce direct inguinal hernia. 3. Paraphimosis. PROCEDURE: 1. Aspiration of left hydrocele (270 mL clear fluid). 2. Right Bassini inguinal herniorrhaphy. ESTIMATED BLOOD LOSS: None. INDICATIONS: Clarence is a 80-year-old gentleman with a significant past medical history including his cardiac history. He came to me several years ago for left inguinal hernia repair. He was planning on having his left hydrocele removed by our local urologist, Dr. Degroot had moved away. He apparently went to see Dr. Fede Bradley for his TURP in [facility]. He has come back to see me because he now has a symptomatic reducible right inguinal hernia. He said his has and it has been pretty miserable since that time, although, he still drives around town. He said the right inguinal hernia symptomatic enough he would like to have it repaired. We had seen him in the office. He does have a large hydrocele, we thought it was bilateral. In the end, it proved to be just on the left. We were able to more thoroughly palpate the scrotum in both testicles once we had him with the inguinal nerve block as well as a spinal anesthetic as well. In the preop area, I met with Clarence once again. We confirmed the right side and we marked that appropriately. We were planning on doing the right hydrocelectomy at the same time as the right groin hernia. He understands the nature of the two surgeries. He understands there is risk including, but not limited to bleeding, infection, scarring, change in contour of the skin, damage to the nerves, ischemic orchitis, recurrent hernias, chronic pain, and recurrent hydroceles. He had expressed understanding wished to proceed. Electronically Signed By: SHELBY ARCE MD 12/05/201942 PATIENT NAME: CLARENCE SOLANO OPERATIVE REPORT DATE OF : 42 REPORT #: [id number] PHYSICIAN: SHELBY ARCE MD PCP: CLARENCE WESLEY MD REPORT IS CONFIDENTIAL AND NOT TO BE RELEASED WITHOUT AUTHORIZATION [facility] [address], [place] [address] Signed PROCEDURE NOTE: Clarence was given iliohypogastric and ilioinguinal nerve block under ultrasound guidance per our nurse head machine feeder. After this, he was taken into the operating room and given a spinal anesthetic as well. He was then placed in the supine position. He was given preoperative antibiotics along with his SCDs. He was prepped and draped in the usual sterile fashion. On exam, we found that both testicles were descended and in fact he has a rather large left hydrocele. The right is unremarkable. We did not have his consented to the left hydrocele and we felt that would be a bit much at this time, so we went ahead and aspirated that hydrocele of 270 mL of clear fluid. Of course, there is a high propensity that it will recur. We then proceeded with a standard right inguinal incision and carried it down through the tissue bluntly and with the cautery. The external oblique was excised along its length and developed medially and laterally. The ilioinguinal iliohypogastric nerves were visualized and protected throughout the case. We elevated the cord structures at the level of pubic tubercle with the help of a Rector drain. We followed the cord structures down into the right hemiscrotum and again with palpation, we can see that the hydroceles on the left there is none on the right. On inspection, we found a rather large, but reducible direct inguinal hernia. It had involve the deep ring as well. We went ahead and reduced the hernia and we brought the conjoined tendon over to the ilioinguinal ligament with interrupted #1 Prolene sutures. This is a classic Ayadini technique. We started the pubic tubercle and worked our way up to the deep ring. Just the tip of my finger would fit at the level of deep ring next to the cord structures. Because of the laxatives, his tissues at his age gave no undue tension of the tissues. We did not utilize any mesh in this instance. We did not add any additional local anesthetic to the groin. The groin was irrigated and suctioned out until clear. We then closed the external oblique fascia over that repair with the help of a running 2-0 PDS suture. Jude's fascia was reapproximated with a running 3-0 Monocryl suture. The dermis was reapproximated with interrupted 2-0 subcuticular Monocryl sutures. The skin edges were reapproximated with a running 5-0 fast absorbing plain gut suture. Dry gauze and tape were then applied. Clarence was then taken into the recovery room in stable condition. Shelby Arce MD ALB/MODL /[id number] Electronically Signed By: SHELBY ARCE MD 12/05/20 194 PATIENT NAME: CLARENCE SOLANO OPERATIVE REPORT DATE OF : 42 REPORT #: [id number] PHYSICIAN: SHELBY ARCE MD PCP: CLARENCE WESLEY MD REPORT IS CONFIDENTIAL AND NOT TO BE RELEASED WITHOUT AUTHORIZATION [facility] [address], [place] [address] Signed cc: MD Shelby Arevalo MD Mary Carnaghan, FNP Copies: CLARENCE WESLEY DMD, ANDREW L MD CARNAGHAN, MARY FNP ~ Electronically Signed By: SHELBY ARCE MD 12/05/20 194 PATIENT NAME: CLARENCE SOLANO OPERATIVE REPORT DATE OF : 42 REPORT #: [id number] PHYSICIAN: SHELBY ARCE MD PCP: CLARENCE WESLEY MD REPORT IS CONFIDENTIAL AND NOT TO BE RELEASED WITHOUT AUTHORIZATION
== END 2020-12-04 10:20 | disposition home or self-care (01) ==
LOC: DS 10:00 → MS 17:43 → DS 12-04 10:20
PROVIDERS: ATTEND Colon & Rectal Surgery
PROC: 0YQ50ZZ Repair Right Inguinal Region, Open Approach (ICD-10-PCS; 2020-12-03)
PROC: 0YQ50ZZ Repair Right Inguinal Region, Open Approach (ICD-10-PCS; 2020-12-03)
PROC: 0VB70ZZ Excision of Left Tunica Vaginalis, Open Approach (ICD-10-PCS; principal; 2020-12-03 13:00)
DX: K40.90 Unilateral inguinal hernia, without obstruction or gangrene, not specified as recurrent (principal); N43.3 Hydrocele, unspecified; N47.2 Paraphimosis
CPT/HCPCS: 00830; 64447; 64450; 76942; C1781; J0690; J1100; J1170; J1644; J2001; J2405; J2550; J2704; J3010; J7121

== ENCOUNTER 2021-10-28 11:45 | Inpatient (IN) | payer MEDICARE ==
[~2021-10-28] VITALS: Ht 182.9 cm; Wt 94.5 kg
[~2021-10-28 11:45] MED LIST changes: +METFORMIN HCL500 MG PO
--- OUTSIDE RECORDS SUMMARY | 2021-10-28 11:48 | XMS ---
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 Care History Medical/Surgical 04/22/2020 [facility] - Patient is currently established with [facility]. If patient is seen in the ED during business hours. Please contact CHWs at [facility]. Care Recommendation: If this patient has had 5 or more Emergency Department visits in the last 12 months.\T\nbsp; Patient will require education on the scope and purpose of the ED as an acute care provider not a Primary Care Provider and should not be utilized for chronic conditions.\T\nbsp; These are guidelines and the provider should exercise clinical judgment when providing care. E.D. VISIT COUNT (12 MO.) 1 [facility] [place] TOTAL 1 NOTE: Visits indicate total known visits. ED/UCC VISIT TRACKING (12 MO.) 10/28/2021 11:46 [facility] [place] TYPE: Emergency COMPLAINT: - DIFFICULTY BREATHING INPATIENT VISIT TRACKING (12 MO.) No inpatient visits to display in this time frame [email or web address]
[2021-10-28] MEDS ORDERED: PIOGLITAZONE HC15 MG PO (11:55)
[2021-10-28] MEDS ORDERED: METOPROLOL SUCC25 MG PO (11:56)
[2021-10-28] MEDS ORDERED: LEVOFLOXACIN500 MG PO (11:56)
[2021-10-28] MEDS ORDERED: PREDNISONE20 MG PO (11:56)
[2021-10-28] MEDS ORDERED: ALLOPURINOL300 MG PO (15:59)
--- NOTE | 2021-10-28 18:28 | NUR ---
PT ADMITTED FROM THE ER INTO ROOM 115 DUE TO SOB, VSS, AWAKE ALERT OX4, ON 2L NC, 18G IV SALINE LOCK FLUSED, PT WITH GENERALIZED BRUISING ON ARMS DUE TO BEING ON PLAVIX, PAIN IS CONTROLLED AT THE MOMENT, FELL ON THE WAY INTO THE ER AND INJURIED HIS RIGHT LEG. PATIENT CONSENTS TO PICTURES OF WOUNDS ON LEGS HAS AN ABRASION ON R KNEE AND A WEEPING ULCER ON R LEG, PICTURES IN CHART. DINNER PROVIDED DENIES ANY OTHER NEEDS AT THE MOMENT
--- NOTE | 2021-10-28 18:30 | NUR ---
ULTRASOUND HERE TO SCAN LEGS PRELIMINARY REPORT NEGATIVE FOR DVT.
--- NOTE | 2021-10-28 19:34 | NUR ---
Received report from zack Ruffin RN.
--- NOTE | 2021-10-28 21:30 | NUR ---
PT STATES HE IS HUNGRY. SNACK GIVEN.
--- NOTE | 2021-10-28 22:00 | NUR ---
IN TO CHECK ON PT TO SEE IF HE WAS ABLE TO VOID, PT ASSISTED UP TO THE BEDSIDE, VOIDED WITH THE URINALS (CHARTED), PT BACK TO BED, BED ALARM SET, NO FURTHER NEEDS
--- NOTE | 2021-10-28 23:51 | NUR ---
CALL LIGHT ON, PT REQEUSTING SOME ICE WATER, PROVIDED, PT LET TIS ELECTRIC METER SETTER KNOW HIS PAIN IN HIS FEET HAS STOPPED, WANTED TO ALSO LET THE RN KNOW, INFOMED, NO FURTHER NEEDS AT THIS TIME
--- NOTE | 2021-10-29 02:15 | NUR ---
PT STATES HE FEELS LIKE HE IS ABLE "TO GET AIR IN EASIER". PT IS NO LONGER EXPERIENCING LABORED BREATHING. EXPIRATORY WHEEZING AUSCULATED. REMAINS ON RA. TALKS IN COMPLETE SENTENCES.
--- NOTE | 2021-10-29 05:05 | NUR ---
PT SLEEPING WITH MOUTH WIDE OPEN. RESPIRATIONS EVEN AND UNLABORED.
--- NOTE | 2021-10-29 05:20 | NUR ---
IN TO GET VITALS, PT SETUP WITH URINAL AT BEDSIDE, PT WILL CALL WHEN READY/FINISHED, AT THIS TIME, PT WILL BE DUE TO VOID, RN IS AWARE, THIS PROPOSAL SPECIALIST WITH ROUND BACK ON PT IF HE HAS NOT CALLED
--- NOTE | 2021-10-29 06:07 | NUR ---
RR 22. APPEARS TO HAVE INCREASED WOB SINCE LAST NOTE. PT HOWEVER STATES THAT HE FEELS LIKE HE IS BREATHING FINE AND HE IS ABLE TO TALK IN COMPLETE SENTENCES.
--- NOTE | 2021-10-29 06:42 | NUR ---
HAD SAT ON EDGE OF BED TO URINATE. BECAME SOB WITH THIS ACTIVITY. ONCE RECOVERED PT REQUESTED COFFEE AND IS TALKATIVE ONCE AGAIN, HOWEVER APPEARS TO HAVE INCREASED WOB.
--- NOTE | 2021-10-29 09:30 | NUR ---
REPORT RECEIVED FROM NIGHT RN AND PT. CARE RESUMED. PT. IS ALERT AND ORIENTED. ASSISTED BY 2 STAFF TO AMBULATE TO THE CHAIR WITH CANE. HE IS UNSTEADY AT TIMES. PT. INSTRUCTED NOT TO GET OUT OF THE CHAIR WITHOUT CALLING AND HE AGREED. +2 EDEMA PRESENT BLE. EXP. WHEEZES PRESENT THROUGHOUT LUNGS. PT. INITIALLY PLACED ON 2L NC WHILE IN BED 02 SAT. WAS 87%. AFTER SITTING IN THE CHAIR, HE WAS TAKEN OFF OF O2 AND 02 SAT. REMAINED 91%. IV SITE WNL AND FLUSHES. DISCUSSED SAFETY, MEDS, POC. LEFT RESTING WITH CALL LIGHT IN REACH.
[2021-10-29] MEDS ORDERED: COLCRYS0.6 MG PO (12:21)
[2021-10-29] MEDS ORDERED: OCUVITE ADULT1 EAC1 PO (12:31)
--- NOTE | 2021-10-29 12:31 | NUR ---
PT. UP IN THE CHAIR FINISHING LUNCH. RT IN THE ROOM. PT. BEGAN TO COUGH WHILE EATING AND VOMITING. HE STATES IT HAPPENS AT TIMES IF HE EATS TOO FAST. PULSE OX PLACED ON FINGER AND O2 SAT REMAINED 89%. PT. ASSISTED WHILE CLEANING. RT IN THE ROOM AND WILL CONTINUE TO MONITOR.
[2021-10-29] MEDS ORDERED: ALPRAZOLAM1 MG PO (12:32)
[2021-10-29] MEDS ORDERED: MELATONIN5 M2 PO (12:33)
[2021-10-29] MEDS ORDERED: TYLENOL EXTRA500 MG PO (12:33)
--- NOTE | 2021-10-29 12:41 | NUR ---
MED REC COMPLETE
--- NOTE | 2021-10-29 17:33 | EKG ---
[facility] [address] [facility] [place] [address] Signed Sinus rhythm with 1st degree AV block Left axis deviation Right bundle branch block Abnormal ECG When compared with ECG of 27-OCT-2020 16:49, T wave amplitude has increased in Inferior leads T wave inversion less evident in Anterolateral leads QT has lengthened Confirmed by GADIEL DODD DO ([id number]) on 10/29/2021 5:33:48 PM Electronically Signed By: GADIEL DODD DO 10/29/21 1733 PATIENT NAME: CLARENCE SOLANO Electrocardiogram DATE OF : 42 PHYSICIAN: GADIEL DODD DO REPORT #: [id number] REPORT IS CONFIDENTIAL AND NOT TO BE RELEASED WITHOUT AUTHORIZATION
--- NOTE | 2021-10-29 19:30 | NUR ---
SHIFT REPORT RECEIVED FROM KHANG FISHER. PT RESTING IN BED, NO NEEDS AT THIS TIME. CALL LIGHT IN REACH.
--- NOTE | 2021-10-29 21:30 | NUR ---
ASSESSMENT COMPLETED. GCS 15, A&O X4. LUNGS HAVE EXPIRATORY WHEEZING IN ALL LOBES. PT DENEIS SOB AT THIS TIME BUT HAS DYSPNEA WITH ACTIVITY. HEART TONES REGULAR. CMS INTACT. BLE HAS 1+ EDEMA, WEEPING. ABD SOFT, NONTENDER, BOWEL TONES ACTIVE. IV WNL, CDI, FLUSHED WELL. OCCASSIONAL DRY COUGH. SCABS ON RIGHT KNEE AND ANKLE NOTED. SNACK PROVIDED. NO OTHER NEEDS. CALL LIGHT IN REACH.
--- NOTE | 2021-10-29 21:46 | NUR ---
SCHEDULED MED PROVIDED. NO OTHER NEEDS. CALL LIGHT IN REACH.
--- NOTE | 2021-10-29 23:28 | NUR ---
PT RESTING IN BED, EYES CLOSED. RR EVEN, UNLABORED. CALL LIGHT IN REACH.
--- NOTE | 2021-10-30 02:10 | NUR ---
PT REPORTS HE CANNOT SLEEP, PRN INSOMNIA MED PROVIDED. ASSESSMENT COMPLETED. LUNGS HAVE EXPIRATORY WHEEZING IN ALL LOBES AND CRACKLES IN LOWER LOBES. BLE 1+EDEMA, WEEPING. SCABS AND BRUISING TO BACK AND LEGS NOTED, OPEN TO AIR. IVs WNL. PT UP TO USE URINAL, SPO2 91%. SOB WITH ACTIVITY BUT RECOVERS QUICKLY. PT REPORTS 2/10 RIGHT KNEE PAIN, REPOSITIONED. NO OTHER NEEDS. CALL LIGHT IN REACH.
--- NOTE | 2021-10-30 04:15 | NUR ---
PT AWAKE IN ROOM. SNACK PROVIDED. NIYA ASH IN ROOM TO COMPLETE VS AND I&O.
--- NOTE | 2021-10-30 04:22 | NUR ---
BP was 125/53. Patient is in bed. Call light is in reach. Respiratory therapy is in room. Vitals are complete.
--- NOTE | 2021-10-30 08:00 | NUR ---
REPORT RECEIVED FROM NIGHT RN AND PT. CARE RESUMED. PT. IS DROWSY BUT AWAKENS EASILY TO VOICE. ORIENTED TO ALL. 02 SAT IS 85% WHILE RESTING. PLACED ON 2L NC AND 02 SAT INCREASED TO 91%. +1 EDEMA BLE AND YELLOW DRAINAGE WEEPING FROM BOTH LEGS. LUNGS COARSE WITH EXP. WHEEZES IN UPPER LOBES AND CRACKLES WITH WHEEZING IN BASES. PT. ENCOURAGED TO AMBULATE TO THE CHAIR AND AGREED TO FOR BREAKFAST. IV SITE AND FLUSHED. PT. ANXIOUS ABOUT GOING HOME. LEFT RESTING WITH CALL LIGHT IN REACH AND BED ALARM ON.
--- NOTE | 2021-10-30 14:30 | NUR ---
PT. ASSISTED WITH AMBULATING WITH FWW AND SBA AND TOLERATED WELL. ON 2L O2 NC AND O2 SAT IS 94%. HE DENIES SOB AT THIS TIME. BROUGHT FRESH WATER. LEFT RESTING WITH CALL LIGHT IN REACH.
--- NOTE | 2021-10-30 17:21 | NUR ---
PATIENT WITH MINCED DIET, FEELING LIKE FOOD IS STICKING IN HIS THROAT. PATIENT GIVEN WARM 7-UP, IS SPITTING UP FOOD.
--- NOTE | 2021-10-30 19:33 | NUR ---
Sitting up in bed, O2 2LNC. increaed SOB with exertion noted. denies c/o pain. recuperated easily. call light at hands reach. RT in room
--- NOTE | 2021-10-30 20:06 | NUR ---
Pt on O2 2LNC, SOb and shallow rapid breathing noted when talking and with exertion. sats no changes low 90's%-90-93 w movement and at rest. HOB elevate to his comofrt, coarse soundinh lungs t/o , denies cough, no further emesis at this time. tolerating diet and liquids well. usese urinal. medium dark yellow colored. R lateral low calf w serous drainage. elevated. darkening of skin noted bilat LE and arms. SL LAC patent. no c/o pain at this time. alert and orineted x4, bed alarm on, uses call light. Gets nebd
--- NOTE | 2021-10-30 21:56 | NUR ---
up to edge of bed, urinalted large amounts of urine. standing weight done 94.3kg. le w serous drainage. O2 2LNC, increased sob with exertion, alert oriented and coop.
--- NOTE | 2021-10-31 01:04 | NUR ---
resting, eyes closed, o2 2lnc in place, hob elevated to his comfort. call light at hands reach
--- NOTE | 2021-10-31 03:02 | NUR ---
reting, o2 2l nc, call light at hands reach. no distress, eyes closed.
--- NOTE | 2021-10-31 04:43 | NUR ---
resting, eys closed, no distress, O2 2L NC inplace, repositions self in bed. call light at bedside, bed alarm on for safety
--- NOTE | 2021-10-31 05:17 | NUR ---
pt awake, uses call light, up to side of bed, voided large amount of yellow urine in urinal. uses FWW, sob with exertion noted. coop with assessment. L lung clear. R coarse and Fine crackles. O2 2LNC, not chronic. moist non productive cough present at this time. SL patent. LE continues to have serous drainage, elevated, improved, decreaed edema. no c/o pain.
--- NOTE | 2021-10-31 05:27 | NUR ---
Pt on 2L NC, not chronic, lungs with coarase , dim and FC sounds R worse than left. moist, productive at times cough, no emesis this shift. no c/o swallowing problems, tolerating liquids and puding well last night. bruising over amrs, legs and low back healing. pleasant and coop. sl patent, abd large firm, carl, LBM 10/28. sob with exertion. pleasant and coop. uses urinal, voiding QS. uses call light. Bed alarm on for safety 1PA/FWW
--- NOTE | 2021-10-31 06:55 | NUR ---
AWAKE, WATCHING TV AND DRINKING COFFEE, ON 2LNC, NO C/O PAIN OR SOB
--- NOTE | 2021-10-31 07:31 | NUR ---
PATIENT RESTING QUIETLY IN BED. PATIENT REPORT GIVEN TO THIS RN FROM PHILLIP BRAMBILA. PATIENT'S EYES ARE CLOSED, RESPIRATIONS ARE REGULAR AND EVEN. CALL LIGHT IS IN REACH.
--- NOTE | 2021-10-31 09:00 | NUR ---
PATIENT DENIES ANY PAIN. PATIENT GETTING A SWOLLOW EVAL FROM AND SHE RECOMMENDS CONTINUED MILDLY THICK LIQUIDS. PATIENT DENIES ANY CARE NEEDS AT THIS TIME. AM MEDS AND INSULIN GIVEN. ASSESSMENT COMPLETE.
--- NOTE | 2021-10-31 09:26 | NUR ---
MED REC COMPLETE
--- NOTE | 2021-10-31 09:46 | NUR ---
PATIENT IN BED RESTING AT THIS TIME. VITALS DONE BY RN AND I&O'S CHARTED BY THIS FIRE SPRINKLER FITTER. NO VOID, RN NOTIFIED, WILL CHECK BACK IN. CALL LIGHT IN REACH. NO FURTHER NEEDS AT THIS TIME.
--- NOTE | 2021-10-31 10:05 | NUR ---
PATIENT RESTING QUIETLY IN BED, RERSPIRATIONS ARE REGULAR AND EVEN. PATIENT DENIES ANY CARE NEEDS AT THIS TIME. CALL LIGHT IS IN REACH.
--- NOTE | 2021-10-31 10:47 | NUR ---
PATIENT UP WALKING THE HALLS WITH PT AND TOLERATING IT WELL AT THIS TIME. NO CURRENT CARE NEEDS NOTED.
--- NOTE | 2021-10-31 11:10 | NUR ---
MJ IN VISITING WITH PATIENT AT THIS TIME. PATIENT HAS NO NURSING CARE NEEDS AT THIS TIME. CALL LIGHT IS IN REACH.
--- NOTE | 2021-10-31 12:38 | NUR ---
PT IS ALERT, ORIENTED AND SITTING ON SIDE OF BED LOOKING OUT THE WINDOW. PT HAS JUST RETURNED FROM AMBULATING IN HALLS WITH P.T. PT STATE HE IS DOING SO MUCH BETTER THAN YESTERDAY. ADMITTED, HE DID NOT WANT TO STAY ANOTHER DAY BUT ACKNOWLEDGED THE POSITIVE RESULTS. HE ALSO MENTIONED HE WOULD LISTEN TO OTHER HELP AND ADDITIONS TO HIS POC. HAD GOOD VISIT, PT SEEMED TO BE GRATEFUL THAT I STOPPED BY. GAVE G.POST, HAD PRAYER AND PT DISCUSSED THE OPTION OF GOING HOME ON O2. ENCOURAGEMENT GIVEN
--- NOTE | 2021-10-31 14:11 | NUR ---
PATIENT SITTING UP IN BED. VITALS AND I&O'S CHARTED. CALL LIGHT IN REACH. NO FURTHER NEEDS AT THIS TIME.
--- NOTE | 2021-10-31 16:55 | NUR ---
OVER TO PATIENTS ROOM TO ATTEMPT ASSESSMENT. PATIENT SLEEPING WITH LIGHTS OUT AND DOES NOT AWAKEN TO VOICE. PER STAFF, PATIENT HAS NOT SLEPT WELL DURING HIS STAY. WILL RETURN TO ASSESS.
--- NOTE | 2021-10-31 18:14 | NUR ---
PATIENT VISITING WITH HIS SON. 5 UNITS INSULIN GIVEN FOR MEAL COVERAGE. CALLED THE KITCHEN TO GET PATIENT SOME MORE SOUP AND THEY WILL BRING SOME UP. PATIENT HAD NO OTHER CARE NEEDS FOR ME AT THIS TIME. CALL LIGHT IS IN REACH.
--- NOTE | 2021-10-31 18:40 | NUR ---
PATIENT SITTING UP IN BED AT THIS TIME. VITALS AND I&O'S CHARTED. BED ALARM ON. CALL LIGHT IN REACH. NO FURTHER NEEDS AT THIS TIME.
--- NOTE | 2021-10-31 19:22 | NUR ---
PATIENT RESTING QUIETLY IM SEMI-FOWLERS POSITION, EYES CLOSED, RESPIRATIONS ARE REGULAR AND EVEN, AND CALL LIGHT IS IN REACH. SHIFT REPORT GIVEN TO PHILLIP CR.
--- NOTE | 2021-10-31 19:22 | NUR ---
REPORT RECEIVED FROM DAY SHIFT RN. PT LYING IN BED RESTING WITH EYES CLOSED. RESPIRATIONS EVEN. WHITE BOARD UPDATED. CALL LIGHT IN REACH.
--- NOTE | 2021-10-31 21:19 | NUR ---
EVENING ASSESSMENT COMPLETE. SCHEDULED MEDS ADMINSITERED PER EMAR. PRN FOR CHRONIC BACK PAIN AND SLEEP GIVEN. PT DENIES SOB OR CHEST PAIN. 1L/NC IN PLACE. SpO2 91%. RESPIRATIONS EVEN. CHEESE AND CRACKERS PROVIDED PER REQUEST. PT DENIES QUESTIONS OR CONCERNS. BED ALARM FOR SAFETY. CALL LIGHT IN REACH.
--- NOTE | 2021-11-01 00:19 | NUR ---
PT AWAKE IN BED. SBA TO SIDE OF BED TO VOID 600 ML YELLOW URINE. BACK TO BED, ASHLEY WELL. INCREASED RESPIRATIONS NOTED, PT DENIES SOB. 1L/NC IN PLACE. SpO2 >90%. NO FURTHER NEEDS. CALL LIGHT IN REACH. BED ALARM FOR SAFETY.
--- NOTE | 2021-11-01 01:51 | NUR ---
PT RESTING IN BED WITH EYES CLOSED. RESPIRATIONS EVEN. CALL LIGHT IN REACH. BED ALARM FOR SAFETY.
--- NOTE | 2021-11-01 02:46 | NUR ---
PT AWAKE IN BED. REPORTS BEING TOO HOT IN ROOM TO SLEEP. THERMOSTAT ADJUSTED. LINENS REMOVED. ASSESSMENT COMPLETE. NO FURTHER NEEDS. CALL LIGHT IN REACH.
--- NOTE | 2021-11-01 03:52 | NUR ---
CALL LIGHT ANSWERED. UP TO SIDE OF BED TO VOID 450 ML WITH FWW AND SBA. BACK TO BED, ASHLEY WELL. ASSISTED TO REPOSITION. NO FURTHER NEEDS.
--- NOTE | 2021-11-01 06:23 | NUR ---
VS AND I&O COMPLETE. RT TRANSITIONED PT TO RA. SpO2 90-92% ON RA. SCHEDULED MEDS ADMINISTERED PER EMAR.
--- NOTE | 2021-11-01 07:30 | NUR ---
PATIENT UP TO THE RESTROOM WITH 1PSBA AND FWW WITH UNIT SALES FLOOR MANAGER. PATIENT HAS NO CARE NEEDS FROM THIS NURSE AT THIS TIME. RECEIVED REPORT FROM PHILLIP CR.
--- NOTE | 2021-11-01 09:00 | NUR ---
THIS RN IN TO SEE PATIENT AM ASSESSMENT COMPLETE. PATIENT WAS CONFUSED ABOUT HIS THICKENED LIQUIDS AND THIS RN EXPLAINED THAT THE SWALLOW STUDY HE HAD YESTERDAY SHOWED HE NEEDED TO DRINK THICKER LIQUIDS THIS LIQUIDS MAKE HIM COUGH AND PORTENTIALLY ASPIRATE. PATIENT VERBALIZED UNDERSTANDING THIS. PATIENT ALSO ASKED FOR MORE EDUCATION ON A DIABETIC DIET. CHARGE NURSE CESAR PUTTING IN A DIETARY CONSULT. PATIENT AM MEDS GIVEN AND PATIENT HAS NO OTHER QUESTIONS FOR THIS RN AT THIS TIME. CALL LIGHT IS IN REACH.
--- NOTE | 2021-11-01 10:04 | NUR ---
PATIENT SITTING UP IN BED. VITALS AND I&O'S CHARTED. CALL LIGHT IN REACH. NO FURTHER NEEDS AT THIS TIME.
--- NOTE | 2021-11-01 10:29 | NUR ---
PT SITTING UP IN BED, ALERT,ORIENTED AND NOT USING O2 AT THE MOMENT. PT LOOKS LIKE HE IS FEELING BETTER, PLEASANT VISIT. HE THANKED ME FOR G.POST, HAS BEEN READING. THANKED ME AGAIN FOR STOPPING, GAVE BLESSING. WILL FOLLOW NEEDED
--- NOTE | 2021-11-01 11:10 | NUR ---
PATIENT RESTING QUIETLY IN LOW FOWLERS POSITION, EYES CLOSED, RESPIRATIONS REGULAR AND EVEN, CALL LIGHT IN REACH. NO NOTED CARE NEEDS AT THIS TIME.
--- NOTE | 2021-11-01 12:04 | NUR ---
PATIENT UP TO THE BEDSIDE TO VOID WITH URINAL THIS RN STANDING BY. INSULIN COVERAGE FOR LUNCH GIVEN. CALL LIGHT IS IN REACH. PATIENT WILL CALL WHEN HE IS DONE.
[2021-11-01] MEDS ORDERED: ALPRAZOLAM0.25 MG PO (12:10)
[2021-11-01] MEDS ORDERED: PREDNISONE10 MG PO (12:11)
--- NOTE | 2021-11-01 14:36 | NUR ---
PT AWAKE IN BED USING CELL PHONE. CALL LIGHT WITHIN REACH. NO FURTHER NEEDS AT THIS TIME.
--- NOTE | 2021-11-01 15:20 | NUR ---
PATIENT IN [facility] AWAITING BARIUM SWALLOW TEST. URINAL EMPTIED AND MEDS GIVEN. PATIENT HAS NO OTHER NEEDS FROM THIS RN AT THIS TIME. CALL LIGHT IS IN REACH.
--- NOTE | 2021-11-01 16:00 | NUR ---
Spoke with Navdeep following gabriela porterow. He is anxious to go home an d is on the phone requesting his son come and get him. Pt stating son and daughter both assist him. He denies needs, denies use of 02 at home and has been off 02 here today. We also discussed his fall in the parking lot on his way into the hospital. Pt states he refused and ambulance from the office and his legs gave out. Security saw him fall and brought him into the hospital. He states his heel is sore, but he has been walking with PT and he is ok. He denies any other needs, plans on dc as soon as will discharge him. Per he can go home later today.
--- NOTE | 2021-11-01 16:13 | NUR ---
CONSULT RECEIVED FOR REVIEW OF DIABETIC DIET. VISITED PATIENT'S ROOM X2 THIS AFTERNOON. FIRST TIME HE WAS RECEIVING A BREATHING TREATMENT. SECOND TIME HE IS OFF THE FLOOR FOR MODIFIED BARIUM SWALLOW STUDY. IF HE IS STILL HERE TOMORROW AM, WILL STOP BACK THEN.
--- NOTE | 2021-11-01 16:36 | NUR ---
PATIENT BACK FROM [facility] AND [facility]ICKIE FROM CASE MANAGEMENT INFORMED PATIENT IS BACK FOR HER TO TALK WITH. PM ASSESSMENT COMPLETE, URINAL EMPTIED, VS HAVE REMAINED STABLE. PATIENT HAS NO OTHER CARE NEEDS AT THIS TIME. CALL LIGHT IN REACH.
--- NOTE | 2021-11-01 18:05 | NUR ---
Spoke with pt, she is new onset Diabetes. Type 1 runs in her family. She lives alone in a [place]. 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 She is interested in Diabetic teaching through the hospital. Will need all the supplies for diabetes. Hopefully [facility] will be able to supply. Will contact before pt goes home as she states concern for supplies in a timely manner.
== END 2021-11-01 17:40 | disposition home or self-care (01) | DRG 189 ==
LOC: ED 11:45 → MS 15:41
PROVIDERS: ADMIT Student in an Organized Health Care Education/Training Program; ATTEND Student in an Organized Health Care Education/Training Program
DX: J96.01 Acute respiratory failure with hypoxia (principal); I50.32 Chronic diastolic (congestive) heart failure; N17.9 Acute kidney failure, unspecified; Z20.822 Contact with and (suspected) exposure to COVID-19; R94.31 Abnormal electrocardiogram [ECG] [EKG]; E11.9 Type 2 diabetes mellitus without complications; S82.401A Unspecified fracture of shaft of right fibula, initial encounter for closed fracture; E79.0 Hyperuricemia without signs of inflammatory arthritis and tophaceous disease; R13.12 Dysphagia, oropharyngeal phase; F39 Unspecified mood [affective] disorder; G47.30 Sleep apnea, unspecified; J43.9 Emphysema, unspecified; I11.0 Hypertensive heart disease with heart failure; Z95.1 Presence of aortocoronary bypass graft; Z98.890 Other specified postprocedural states; Z87.891 Personal history of nicotine dependence; Z95.2 Presence of prosthetic heart valve; Z86.73 Personal history of transient ischemic attack (TIA), and cerebral infarction without residual deficits; Z79.02 Long term (current) use of antithrombotics/antiplatelets; Z79.899 Other long term (current) drug therapy; W18.39XA Other fall on same level, initial encounter
CPT/HCPCS: 36415; 71045; 73610; 74230; 80048; 83735; 83880; 84484; 85025; 92610; 93005; 93010; 93971; 94640; 94760; 94761; 97110; 97116; 97162; A9270; C9803; J1815; J1940; J2920; J2930; U0003

== ENCOUNTER 2022-02-08 18:08 | Inpatient (IN) | payer MEDICARE ==
[~2022-02-08] VITALS: Ht 182.9 cm; Wt 92.3 kg
[~2022-02-08 18:08] MED LIST changes: +ALLOPURINOL300 MG PO; +ALPRAZOLAM0.25 MG PO; +ALPRAZOLAM1 MG PO; +COLCRYS0.6 MG PO; +LEVOFLOXACIN500 MG PO; +MELATONIN5 M2 PO; +METFORMIN HCL500 M1 PO; -METFORMIN HCL500 MG PO; +OCUVITE ADULT1 EAC1 PO; +PIOGLITAZONE HC15 MG PO; +PREDNISONE10 MG PO; +TYLENOL EXTRA500 MG PO
--- OUTSIDE RECORDS SUMMARY | 2022-02-08 18:12 | XMS ---
PreManage Notification: CLARENCE SOLANO Security Medical Staff Assistant Events No recent Security Events currently on file CRITERIA MET - Group Notification - PDMP CARE PROVIDERS LUPILLO CLARENCE [facility] Current PHONE: [phone] ASHLEY NICHOLE Internal Medicine 04/22/2020-Current PHONE: Unknown [place] has no Care Guidelines for this patient. Care History Medical/Surgical 04/22/2020 [facility] - Patient is currently established with [facility]. If patient is seen in the ED during business hours. Please contact CHWs at [facility]. Care Recommendation: If this patient has had [...] providing care. E.D. VISIT COUNT (12 MO.) 2 [facility] [place] TOTAL 2 NOTE: Visits indicate total known visits. 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 - Emphysema, unspecified - Unspecified mood [affective] disorder - 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 - Chronic diastolic (congestive) heart failure - Other fall on same level, initial encounter - Personal history of nicotine dependence - Contact with and (suspected) exposure to COVID-19 - Unspecified fracture of shaft of right fibula, initial encounter for closed fracture - Other fall on same level, initial encounter - Sleep apnea, unspecified - Chronic obstructive pulmonary disease, unspecified - Presence of aortocoronary bypass graft - Acute respiratory failure with hypoxia - Unspecified mood [affective] disorder - Dysphagia, oropharyngeal phase - Emphysema, unspecified - Acute respiratory failure with hypoxia - Other manager intermediate (current) drug therapy - Personal history of transient ischemic attack (TIA), and cerebral infarction without residual deficits - Personal history of transient ischemic attack (TIA), and cerebral infarction without residual deficits - Dysphagia, oropharyngeal phase - Sleep apnea, unspecified - Type 2 diabetes mellitus without complications - Acute kidney failure, unspecified - Hyperuricemia without signs of inflammatory arthritis and tophaceous disease - Presence of prosthetic heart valve - Unspecified fracture of shaft of right fibula, initial encounter for closed fracture - Abnormal electrocardiogram [ECG] [EKG] - Hyperuricemia without signs of inflammatory arthritis and tophaceous disease - Acute kidney failure, unspecified - Chronic diastolic (congestive) heart failure - Other fpc (current) drug therapy - Other specified postprocedural states - Other specified postprocedural states - Presence of aortocoronary bypass graft - Presence of prosthetic heart valve [email or web address]
[2022-02-09] MEDS ORDERED: BUSPIRONE HCL5 MG PO (07:57)
[2022-02-09] MEDS ORDERED: GABAPENTIN300 MG PO (09:32)
[2022-02-09] MEDS ORDERED: POTASSIUM99 M1 PO (09:37)
[2022-02-09] MEDS ORDERED: IPRAT-ALBUT 0.5-3 ML INH (12:28)
[2022-02-09] MEDS ORDERED: LISINOPRIL5 MG PO (12:29)
[2022-02-09] MEDS ORDERED: METOPROLOL SUCC50 MG PO (13:34)
--- NOTE | 2022-02-11 11:00 | CONS ---
[facility] [address] [place], [place] [address] Signed DATE OF CONSULTATION: 02/10/2022 REQUESTING PHYSICIAN: Dr. [place]. PROBLEM: Malignant left pleural effusion (symptomatic). HISTORY OF PRESENT ILLNESS: This 81-year-old white man presents to the emergency room on February 09 at approximately 1 a.m. and was found to have dyspnea and shortness of breath and underlying COPD. Dr. Fu, the emergency room physician found him to have a large left pleural effusion and the patient underwent left thoracentesis of approximately 2 L of fluid. The patient has home oxygen at 2 L/minute and having to increase his flow rate to 3-4 L/minute while at home. The patient was thought to have fluid overload by his primary care provider and a diuretic was started, but this caused him to have some hypotension. He was noted to have pitting edema in the lower extremities rather proximally. Left-sided thoracentesis was performed following the chest x-ray and CT scan of the chest which showed a moderate left pleural effusion with pleural thickening and nodularity. Complete loss of the left lower lobe and partial collapse of the left upper lobe had been noted without distinct parenchymal mass though there was mediastinal adenopathy. This included prominent left hilar lymph nodes. The thoracentesis was performed at approximately 1:00 a.m. showing marked reduction in pleural fluid volume considered "trace" but a small left apical pneumothorax was noted. He had improved ventilation in the left lung. He was admitted directly by Dr. [place] for further evaluation and care. He has since that time been identified and confirmed to have history of COPD and chronic respiratory failure with hypoxia, worsening shortness of breath over the past 2 to 3 months. Other issues include chronic diastolic heart failure. Echocardiogram in 2019 showed left ventricular ejection fraction of 60%. 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 Chronic kidney disease with creatinine between 1.6 and 1.7, hyperlipidemia, hyperuricemia. He quit tobacco use approximately 20 years ago. He does not use alcohol. His about a year ago. ALLERGIES: He has allergies to sulfa medication. CURRENT MEDICINES: Include Plavix, losartan, multivitamins, albuterol, atorvastatin, metformin, torsemide, Combivent inhaler spray, metoprolol, allopurinol, colchicine, Tylenol Extra Strength, buspirone, gabapentin, and potassium supplement. I was consulted today as the pleural fluid that had been obtained, initially noted as an exudate and was confirmed to have malignant cytology consistent with cancer. His pleural effusion on the left has Electronically Signed By: TIFFANY MATSON MD 02/11/22 1100 PATIENT NAME: CLARENCE SOLANO CONSULTATION DATE OF : 42 REPORT #: [id number] PHYSICIAN: TIFFANY MATSON MD PCP: CLARENCE WESLEY MD REPORT IS CONFIDENTIAL AND NOT TO BE RELEASED WITHOUT AUTHORIZATION [address] [address] Signed reaccumulated. He does not feel as short of breath as when he was 1st admitted, but does have increased dyspnea compared to yesterday. He is amenable to left thoracentesis he notes in conjunction with his friend who is assisting him currently. REVIEW OF SYSTEMS: He denies any hemoptysis or hematemesis. He does have shortness of breath, not as severe as the day before, but still notable compared to immediately post thoracentesis. PHYSICAL EXAMINATION: GENERAL: This is an obese white man who is alert and oriented. He does not appear overtly dyspneic at this time. VITAL SIGNS: Temperature is 97.8, pulse is 80, blood pressure 112/48, O2 saturation is 95% on 4 L nasal cannula oxygen. LABORATORY DATA: From today show a hematocrit of 38, white count 7.6, platelets 186,000. Chem profile showed a creatinine of 1.93 today. Electrolytes are normal. Liver enzymes are normal. Protein 6.1, albumin 3.1. Serology shows negative COVID and influenza. Pleural fluid analysis from February 08 confirm the fluid to be "slightly cloudy." White cells 120, RBCs elevated , total protein in the fluid was 4.0. I have reviewed his initial chest x-ray from February 08 which shows an effusion extending at least 3/4 of the left hemithorax with no evidence of tracheal deviation. The post thoracentesis chest x-ray shows much improvement though there are atelectatic changes in the left lung base. The chest x-ray today at approximately 1:25 a.m. showed pleural effusion about half way up on the left side. ASSESSMENT: The patient has a rapidly recurring left pleural effusion which is symptomatic, though not as severe as at the time of presentation. I have reviewed all this with Dr. [place] in detail. Malignant cytology of the pleural fluid precludes any consideration of "cure" of lung cancer. His problem may be a mesothelioma given the pleural involvement. I have reviewed the CT scan. Adenopathy would not be typical and such in the setting, however. 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 Palliative efforts would certainly be appropriate and acute treatment of the dyspnea from his recurrent left pleural effusion is also appropriate. I discussed with him the various options of management of the pleural effusion and malignant pleural effusion in particular including the idea of pleurodesis. Thoracoscopic approaches were discussed as were chest tube related intrapleural chemical pleurodesis and of course a backup Electronically Signed By: TIFFANY MATSON MD 02/11/22 1100 PATIENT NAME: CLARENCE SOLANO CONSULTATION DATE OF : 42 REPORT #: [id number] PHYSICIAN: TIFFANY MATSON MD PCP: CLARENCE WESLEY MD REPORT IS CONFIDENTIAL AND NOT TO BE RELEASED WITHOUT AUTHORIZATION [facility] [address] [place], [place] [address] Signed option of a PleurX catheter for the pleural space for episodic pleural drainage. The patient has expressed to Dr. [place] a reluctance to pursue more aggressive palliative therapy (chemotherapy, etc.) [place] to successful pleurodesis would be reasonable and essentially full expansion of the lung to provide the pleural contact with the parietal pleura of the chest wall itself. Barring that chemical pleurodesis would be contraindicated essentially. The patient wants to ponder his options a bit more. He will allow for a symptomatic palliative left thoracentesis at this time. He understands the risk of bleeding, infection, recurrent or worsened pneumothorax (unlikely). If such a finding were to occur, he would need a chest tube more promptly. Consideration is made for a left chest tube at this time, which could be undertaken even at the bedside under local anesthetic. However, the patient has just eaten lunch and that would preclude safe administration of intravenous sedation, which in most cases is much appreciated and beneficial. On that basis, we will perform left thoracentesis at this time and assess for good expansion of the lung. Repeat imaging to assess for full expansion of the lung and consideration perhaps for placement of chest tube and chemical pleurodesis soon. Tiffany Matson MD JM/MODL /[id number] cc: Jurgen [place] MD Copies: JURGEN [place] MD ~ Electronically Signed By: TIFFANY MATSON MD 02/11/22 1100 PATIENT NAME: CLARENCE SOLANO CONSULTATION DATE OF : 42 REPORT #: [id number] PHYSICIAN: TIFFANY MATSON MD PCP: CLARENCE WESLEY MD REPORT IS CONFIDENTIAL AND NOT TO BE RELEASED WITHOUT AUTHORIZATION
--- NOTE | 2022-02-11 11:00 | OR ---
[facility] [address] [place], [place] [address] Signed DATE OF OPERATION: 02/10/2022 SURGEON: Tiffany Matson MD PREOPERATIVE DIAGNOSES: 1. Recurrent left malignant pleural effusion. 2. Underlying chronic obstructive pulmonary disease. POSTOPERATIVE DIAGNOSES: 1. Recurrent left malignant pleural effusion. 2. Underlying chronic obstructive pulmonary disease. PROCEDURE: Left thoracentesis 1.4 L. ANESTHESIA: 1% lidocaine with epinephrine. INDICATION: This 81-year-old white man rather is a patient Dr. [place] and he was admitted on 02/08/2022 with a symptomatic left pleural effusion. Thoracentesis in the emergency room by Dr. Fu confirmed significant effusion and cytology was obtained concerning malignancy. A CT scan had been performed showing pleural nodularity, but no sign of dominant parenchymal mass of the lung itself. He was found to have the pleural effusion fluid to be malignant on cytologic examination. I was consult by Dr. [place] as the patient has had recurrent symptoms of dyspnea today. A chest x-ray shows a pleural effusion about longterm up the left thoracic space. Previously it was 2/3 the length. His previous thoracentesis was 2.15 L. We have discussed means of ongoing management to possibly include a pleurodesis unfortunately, the patient ate today and is unable to undergo any operative intervention or even IV sedation. On the other hand, he is symptomatic regarding his pleural effusion and thoracentesis as a bridge to do more definitive palliative management has been recommended. The risks of bleeding, infection, pneumothorax and so forth were reviewed with him. He understands and wished to proceed. FINDINGS: The left pleural space was entered without known complication. The fluid was thin, but obviously with bloody component; certainly, there were no clots or anything of that Electronically Signed By: TIFFANY MATSON MD 02/11/22 1100 PATIENT NAME: CLARENCE SOLANO OPERATIVE REPORT DATE OF : 42 REPORT #: [id number] PHYSICIAN: TIFFANY MATSON MD PCP: CLARENCE WESLEY MD REPORT IS CONFIDENTIAL AND NOT TO BE RELEASED WITHOUT AUTHORIZATION [facility] [address] [place], [place] [address] Signed sort. Thoracentesis allowed for 1.4 L to be easily withdrawn. The patient did have some pain with lower lung expansion and minimal cough. A postprocedure chest x-ray is pending. PROCEDURE IN DETAIL: The patient in the upright position. Arms draped over a stand with a pillow for support. The left clavicle was well identified and marked. The posterior thorax on the left was prepared with a chlorhexidine solution and draped sterilely. A 1% lidocaine was injected directly over the rib, presumably the seventh rib on the left side. The needle was able to "march" along the rib allowing for entry over the rib into the pleural space showing thin bloody pleural effusion. Using the angiocatheter with the thoracentesis kit. After incising the skin with an 11 blade the pleural space was once again entered and when fluid was withdrawn and the angiocatheter advanced. Aspiration on the catheter showed free flow of bloody pleural effusion fluid. A stopcock was applied and evacuation of pleural fluid undertaken without problem. Easy withdrawal of 1 L of fluid was undertaken with only minimal manipulation of the angiocatheter itself. When a full L was obtained, another bottle was attached to the tubing and 0.4 L was easily obtained, however, with various manipulations, only intermittent aspiration was possible at that point. The patient had some small cough and some discomfort at that point, indicative of lung expansion almost certainly. The catheter was removed. A Band-Aid was applied. He was manipulated to an upright position in bed and plan for portable chest x-ray undertaken. The chest xray showed improvment of the left pleural effusion and no pneumothorax. MD ANNABELLE Reed/MATL /[id number] cc: MD Smooth Arevalo MD Electronically Signed By: TIFFANY MATSON MD 02/11/22 1100 PATIENT NAME: CLARENCE SOLANO OPERATIVE REPORT DATE OF : 42 REPORT #: [id number] PHYSICIAN: TIFFANY MATSON MD PCP: CLARENCE WESLEY MD REPORT IS CONFIDENTIAL AND NOT TO BE RELEASED WITHOUT AUTHORIZATION [facility] [address] [place] [id number] Signed Copies: CLARENCE WESLEY DMD, LOHITH VEERAPPA MD ~ Electronically Signed By: TIFFANY MATSON MD 02/11/22 1100 PATIENT NAME: CLARENCE SOLANO OPERATIVE REPORT DATE OF : 42 REPORT #: [id number] PHYSICIAN: TIFFANY MATSON MD PCP: CLARENCE WESLEY MD REPORT IS CONFIDENTIAL AND NOT TO BE RELEASED WITHOUT AUTHORIZATION
--- NOTE | 2022-02-11 14:46 | EKG ---
[facility] [address] [facility] [place] [address] Signed Sinus rhythm with 1st degree AV block Left axis deviation Right bundle branch block Abnormal ECG When compared with ECG of 28-OCT-2021 12:30, No significant change was found Confirmed by JURGEN ARMSTRONG MD ([id number]) on 02/11/2022 2:46:33 PM Electronically Signed By: JURGEN ARMSTR[place] MD 02/11/22 1446 PATIENT NAME: RUSSCLARENCE MCGUIRE Electrocardiogram DATE OF : 42 PHYSICIAN: JURGEN ARMSTR[place] MD REPORT #: [id number] REPORT IS CONFIDENTIAL AND NOT TO BE RELEASED WITHOUT AUTHORIZATION
--- NOTE | 2022-02-12 12:17 | OR ---
[facility] [address] [place], [place] [address] Signed DATE OF OPERATION: 02/11/2022 SURGEON: Tiffany Matson MD PREOPERATIVE DIAGNOSES: 1. Left malignant pleural effusion and recurrent effusion (symptomatic). 2. Advanced chronic obstructive pulmonary disease, diminished pulmonary reserve. POSTOPERATIVE DIAGNOSES: 1. Left malignant pleural effusion and recurrent effusion (symptomatic). 2. Advanced chronic obstructive pulmonary disease, diminished pulmonary reserve. PROCEDURE: 1. Diagnostic thoracoscopy. 2. Placement of 32-Romanian straight chest tube. ANESTHESIA: Local with monitored anesthesia care, Joe Hugo CRNA, and local 10 mL of 0.25% Marcaine with epinephrine. INDICATION: This 81-year-old white man was admitted by Dr. [place] on February 08, 2022, with a large left pleural effusion, which underwent thoracentesis in the emergency room by Dr. Fu, showing 2125 cc of somewhat cloudy bloody fluid. It had exudative features and cytology confirmed malignancy. The patient had rapid reaccumulation of the pleural fluid and I was consulted regarding further management of his malignant left pleural effusion. Notably, the CT scan showed some nodular changes of the parietal pleura and atelectatic changes of the left lower lobe. He underwent thoracentesis by me yesterday, February 10, 2022, for which a 1.4 L of somewhat bloody pleural fluid was extracted. I have reviewed with the patient, his family friend, and recently his son, the options of management of the pleural effusion, which include, but are not limited to pleurodesis either by chest tube or thoracoscopy or PleurX catheter. The patient has notably diminished pulmonary function with advanced COPD requiring home oxygen recently at 3-4 L and would be an unlikely candidate for dual lumen intubation with single lung ventilation and on that basis, a typical thoracoscopic talc-based pleurodesis solution is deemed unlikely possible. The idea of sclerosing agents in the pleural space with chest tube placement was deemed more feasible as his pleural fluid appears to reaccumulate rather rapidly and a PleurX catheter would likely be problematic for Electronically Signed By: TIFFANY MATSON MD 02/12/22 1217 PATIENT NAME: CLARENCE SOLANO OPERATIVE REPORT DATE OF : 42 REPORT #: [id number] PHYSICIAN: TIFFANY MATSON MD PCP: CLARENCE WESLEY MD REPORT IS CONFIDENTIAL AND NOT TO BE RELEASED WITHOUT AUTHORIZATION [facility] [address] [place], [place] [address] Signed frequencies of pleural fluid removal on that basis. I have recommended placement of a chest tube in the operating room setting in a controlled environment to allow for limited diagnostic thoracoscopy to better characterize the probability of good lung expansion, assess for parietal pleural nodularity and evaluation of the surface of the lung. If good lung expansion can be undertaken with a chest tube related approach of decompression of the fluid then a sclerosing pleurodesis via the chest tube would be planned. The patient and his son and family friend understand the risks of bleeding, infection, and other unforeseen complications and wished to proceed. FINDINGS: Entry into the pleural space allowed for digital examination showing a gummy somewhat collapse left lower lobe. The pleural space superior to this was easily examined and free. The more superior aspect of the pleura was smooth. A 30-degree 5 mm thoracoscope allowed for examination of the space and good visualization could show that the parietal pleura was largely smooth and without gross nodularity and the area examined in the superior lateral aspect and the parenchyma of the lung smooth as well. Placement of the straight 32-Romanian chest tube allowed for egress of somewhat joe-colored fluid approximately 800 mL in aggregate. There were no complications. A postprocedure chest x-ray is pending. DESCRIPTION OF PROCEDURE: The patient was brought to the operating room and placed on the operating bed. Preoperative antibiotic Ancef was given. Sequential compression device stockings were used. The body position for this was a slightly left elevated thorax with support of his left arm, so as to avoid shoulder injury. The left chest was clipped and the patient was given intravenous sedation and the chest wall prepared with a chlorhexidine base solution. Palpation of the ribs lateral and inferior to the left nipple was undertaken and 10 mL of 0.25% Marcaine with epinephrine was injected locally in a transverse configuration. Dissection was carried through the dermis sharply and with electrocautery. Approximately the 6th rib was identified and additional anesthetic given. The pleural space was easily entered directly over the top of the rib, allowing for insertion of the index finger. Medially, the lung parenchyma feels somewhat gummy and collapsed and some nodularity was noted inferiorly and laterally. Examination superiorly and laterally, the parietal pleura felt smooth. A 5 mm 30-degree thoracoscope was placed in the pleural space allowing for examination Electronically Signed By: TIFFANY MATSON MD 02/12/22 1217 PATIENT NAME: CLARENCE SOLANO OPERATIVE REPORT DATE OF : 42 REPORT #: [id number] PHYSICIAN: TIFFANY MATSON MD PCP: CLARENCE WESLEY MD REPORT IS CONFIDENTIAL AND NOT TO BE RELEASED WITHOUT AUTHORIZATION [address] [address] Signed of the lung and the parietal pleura. Although, there was some fluid that obscured clear visualization initially, good evaluation of the surface of the parietal pleura and lung itself showed smooth apposition and high probability that good expansion would be possible for which chemical pleurodesis soon would be undertaken. The thoracoscope was removed and a 32-Romanian straight tube was angled superiorly and medially and advanced approximately 14 cm, which met resistance and was gently pulled back about 2 cm. The tube was secured to the skin with Prolene suture. The chest tube was attached to suction. Ultimately, 800 mL of pleural fluid was extracted. A zip tie was applied to the chest tube and a sterile dressing applied. Silk tape was applied with gauze dressing and the chest tube secured with pink tape as a mesentery to avoid dislodgement. The patient was returned to completely supine position and transferred to recovery room in good condition. Postprocedure chest x-ray showed good expansion of the lung, haziness in the left lower aspect, but improvement and no evidence of air leak in the chest tube device. MD ANNABELLE Reed/MATL /[id number] cc: MD Clarence Fisher MD Copies: JURGEN [place] MD Electronically Signed By: TIFFANY MATSON MD 02/12/22 1217 PATIENT NAME: CLARENCE SOLANO OPERATIVE REPORT DATE OF : 42 REPORT #: [id number] PHYSICIAN: TIFFANY MATSON MD PCP: CLARENCE WESLEY MD REPORT IS CONFIDENTIAL AND NOT TO BE RELEASED WITHOUT AUTHORIZATION [facility] [address] [place] [address] Signed CLARENCE WESLEY DMD ~ Electronically Signed By: TIFFANY MATSON MD 02/12/22 1217 PATIENT NAME: CLARENCE SOLANO OPERATIVE REPORT DATE OF : 42 REPORT #: [id number] PHYSICIAN: TIFFANY MATSON MD PCP: CLARENCE WESLEY MD REPORT IS CONFIDENTIAL AND NOT TO BE RELEASED WITHOUT AUTHORIZATION
--- NOTE | 2022-02-16 18:26 | OR ---
[facility] [address], [place] [address] Signed DATE OF OPERATION: 02/13/2022 SURGEON: Tiffany Matson MD PREOPERATIVE DIAGNOSIS: Malignant left pleural effusion (adenocarcinoma). POSTOPERATIVE DIAGNOSIS: Malignant left pleural effusion (adenocarcinoma). PROCEDURE: Left talc pleurodesis (4 g talc in 100 mL saline via left-sided chest tube). ANESTHESIA: Fentanyl 50 mcg IV and 250 mg lidocaine via chest tube. INDICATION: This 81-year-old white male was admitted by Dr. Armstrong on February 08, 2022 with a large left pleural effusion found on thoracentesis to show malignancy including adenocarcinoma. He has left lower lobe atelectatic change, but no evidence of multi-bullous disease within the lung or multi loculations within the pleural space. I performed a 2nd thoracentesis a few days ago. He had rapid reaccumulation of the fluid in the left pleural space. Two days ago, he underwent left-sided chest tube placement by me as well as concurrent thoracoscopy showing freedom of the visceral and parietal pleuras of the left chest. Drainage of approximately 1500 mL of pleural fluid has been noted since that time. He appears to have good expansion of the lung other than the left lower lobe, which has atelectatic changes. Palliative talc pleurodesis has been recommended after reviewing several other methods of management. The patient and his son and his family friend understand the special risks of talc pleurodesis, including, but not limited to, bleeding and initiation of pneumonitis, ARDS, and of course failure to provide adequate fusion of the pleural surfaces and understanding this he wishes to proceed. FINDINGS: Using injection of the talc slurry was undertaken with minimal symptoms related to the plan of anesthesia. The body position changes will be undertaken over the next 2 hours before reestablishment of suction. DESCRIPTION OF PROCEDURE: In the intensive care unit bed, he was in a mild recumbent position. The dressing of the chest tube was removed and a chest tube clamp was applied to the chest tube itself. Electronically Signed By: TIFFANY MATSON MD 02/16/22 1826 PATIENT NAME: CLARENCE SOLANO OPERATIVE REPORT DATE OF : 42 REPORT #: [id number] PHYSICIAN: TIFFANY MATSON MD PCP: CLARENCE WESLEY MD REPORT IS CONFIDENTIAL AND NOT TO BE RELEASED WITHOUT AUTHORIZATION [facility] [address], [place] [address] Signed The previously mixed ampulla of lidocaine 1% (250 mg total) was infused into the chest tube and the chest tube re-clamped. This did cause a minor amount of discomfort at the time, but not much. He was given 50 mcg of fentanyl IV. Previously mixed catheter tip syringes each containing 2 g of talc in 50 mL of saline were sequentially injected into the pleural space without impediment. The chest tube clamp was reestablished and the [employer] Pleur-evac device reestablished to the chest tube and the joint between the two devices secured with pink tape. The chest tube was secured to the chest wall with pink tape as well with mesenteric pedicle. Full monitoring was undertaken during the course of this showing no sign of hemodynamic compromise, hypoxemia, or other problem. The patient had minimal of any discomfort at this point. Tiffany Matson MD JM/MODL /[id number] cc: MD Clarence Fisher MD Cynthia Rasch, MD Copies: JURGEN ARMSTRONG MD, ROBERT D DMD RASCH, CYNTHIA MD ~ Electronically Signed By: TIFFANY MATSON MD 02/16/22 1826 PATIENT NAME: CLARENCE SOLANO OPERATIVE REPORT DATE OF : 42 REPORT #: [id number] PHYSICIAN: TIFFANY MATSON MD PCP: CLARENCE WESLEY MD REPORT IS CONFIDENTIAL AND NOT TO BE RELEASED WITHOUT AUTHORIZATION
[2022-02-21] MEDS ORDERED: OXYCODONE HCL5 MG PO (14:14)
[2022-02-21] MEDS ORDERED: BISACODYL5 MG PO (14:14)
== END 2022-02-22 10:16 | disposition home or self-care (01) | DRG 166 ==
LOC: ED 18:08 → MS 18:10 → CCU 02-10 13:14 → MS 02-10 13:15 → CCU 02-12 08:40 → MS 02-15 13:00
PROVIDERS: Surgery; ADMIT Internal Medicine; ATTEND Internal Medicine
PROC: 0W9B30Z Drainage of Left Pleural Cavity with Drainage Device, Percutaneous Approach (ICD-10-PCS; principal; 2022-02-10)
PROC: 0W9B3ZZ Drainage of Left Pleural Cavity, Percutaneous Approach (ICD-10-PCS; 2022-02-10)
PROC: 0BJQ4ZZ Inspection of Pleura, Percutaneous Endoscopic Approach (ICD-10-PCS; 2022-02-11 15:42)
PROC: 0W9B30Z Drainage of Left Pleural Cavity with Drainage Device, Percutaneous Approach (ICD-10-PCS; 2022-02-13)
PROC: 3E0L3GC Introduction of Other Therapeutic Substance into Pleural Cavity, Percutaneous Approach (ICD-10-PCS; 2022-02-13)
DX: C78.2 Secondary malignant neoplasm of pleura (principal); J96.21 Acute and chronic respiratory failure with hypoxia; G93.41 Metabolic encephalopathy; C34.32 Malignant neoplasm of lower lobe, left bronchus or lung; I50.32 Chronic diastolic (congestive) heart failure; J98.11 Atelectasis; F05 Delirium due to known physiological condition; J91.0 Malignant pleural effusion; N18.32 Chronic kidney disease, stage 3b; Z20.822 Contact with and (suspected) exposure to COVID-19; E11.22 Type 2 diabetes mellitus with diabetic chronic kidney disease; E78.5 Hyperlipidemia, unspecified; E79.0 Hyperuricemia without signs of inflammatory arthritis and tophaceous disease; J43.9 Emphysema, unspecified; Z95.2 Presence of prosthetic heart valve; Z86.73 Personal history of transient ischemic attack (TIA), and cerebral infarction without residual deficits; Z99.81 Dependence on supplemental oxygen; Z87.891 Personal history of nicotine dependence; Z88.2 Allergy status to sulfonamides; Z79.84 Long term (current) use of oral hypoglycemic drugs; Z79.899 Other long term (current) drug therapy
CPT/HCPCS: 32555; 36415; 36600; 71045; 71046; 71250; 80048; 80053; 82803; 83615; 83735; 83880; 84157; 84484; 85025; 87070; 87075; 87205; 87502; 89051; 93005; 94640; 94660; 94760; 94761; 94762; 96374; 97161; 99285-25; A9270; C9803; G0378; J0690; J1815; J1885; J2001; J2270; J2704; J3010; J7030; J7121; P9047; U0003